=== PATIENT | male | born 1975 | race Caucasian/White ===

== ENCOUNTER 2018-01-09 13:23 | Observation (INO) | payer OTHER ==
--- NOTE | 2018-01-09 14:08 | PDOC ---
History of Present Illness <Marta Garcia - Last Filed: 01/09/18 18:07> - General History Source: Patient Exam Limitations: No Limitations - History of Present Illness Travel History: No Initial Comments: 01/09/18 14:03 42y M hx of chronic pain, htn, s/p gastric bypass, hx of hernia repairs presents with abd pain. Pt states that he has had intermittent abd pain since after he did some lifting at work, then again in the evening when he was bowling. He denies seeing any amsses, n/v, but notes pain mostly in the LLQ , improves when he sits down. normal bms, no f/c, cp, sob, cough, dysuria, diarrhea, melena, bpr. pt also endorses some leg swellnig, but notes he has been on his feet alot. madelyn went to his PMDs office who referred him to the ED for further evlauation. <Yohannes Driscoll - Last Filed: 01/09/18 19:26> - General Chief Complaint: Pain Stated Complaint: ABDOMINAL PAIN Time Seen by Provider: 01/09/18 13:30 Past History <Marta Garcia - Last Filed: 01/09/18 18:07> - Past Medical History Asthma: No HTN: Yes (currently not tx) Liver Disease: No - Surgical History Abdominal Surgery: Yes (HERNIA) Gastric Stapling: Yes - Suicide/Smoking/Psychosocial Hx Smoking History: Current every day smoker Have you smoked in the past 12 months: Yes Number of Cigarettes Smoked Daily: 20 If you are a former smoker, when did you quit?: 06/03 'Breaking Loose' booklet given: 12/19/15 Hx Alcohol Use: No Drug/Substance Use Hx: No Substance Use Type: None Hx Substance Use Treatment: Yes <Yohannes Driscoll - Last Filed: 01/09/18 19:26> - Past Medical History Allergies/Adverse Reactions: Allergies Allergy/AdvReac Type Severity Reaction Status Date / Time No Known Allergies Allergy Verified 01/09/18 13:41 Home Medications: Ambulatory Orders Acetaminophen 650 mg PO Q6H PRN 01/09/18 Esomeprazole Magnesium [Nexium 24Hr] 22.3 mg PO DAILY 01/09/18 Ibuprofen [Motrin -] 600 mg PO TID PRN 01/09/18 Methadone [Dolophine -] 10 mg PO TID 01/09/18 Triamterene/Hydrochlorothiazid [Triamterene-Hctz 37.5-25 mg Cp] 1 each PO DAILY 01/09/18 Valsartan 320 mg PO DAILY 01/09/18 Review of Systems - Review of Systems Able to Perform ROS?: Yes Comments:: 01/09/18 14:05 Constitutional - no reported Fever, Chills, HEENT: no reported vision changes, sore throat Respiratory: no reported cough, sob, hemoptysis Cardiac: no reported chest pain, palpitations, light headedness, leg swelling Abd/GI: +abd pain, no reported nausea, vomiting, blood per rectum, melena, diarrhea : no reported dysuria, frequency, discharge Musculskelatal - no reported back pain, joint swelling skin - no reported bruising, erythema, rash neurological: no reported headache, numbness, focal weakness, tingling, ataxia, hematologic: no reported easy bruising, easy bleeding <Yohannes Driscoll - Last Filed: 01/09/18 19:26> *Physical Exam - Vital Signs Last Vital Signs Temp Pulse Resp BP Pulse Ox 98.1 F 85 16 150/96 99 01/09/18 13:25 01/09/18 13:25 01/09/18 13:25 01/09/18 13:25 01/09/18 13:25 <Marta Garcia - Last Filed: 01/09/18 18:07> - Physical Exam Comments: 01/09/18 14:06 GENERAL: The patient is awake, alert, and fully oriented, Nontoxic - in no acute distress. HEAD: Normocephalic, atraumatic. EYES: extraocular movements intact, sclera anicteric, conjunctiva clear. ENT: Normal voice, Moist mucous membranes. NECK: Normal range of motion, supple LUNGS: Breath sounds equal, clear to auscultation bilaterally. No wheezes, no rhonchi, no rales. HEART: Regular rate and rhythm, normal S1 and S2 without murmur, rub or gallop. ABDOMEN: Soft, mild LLQ tenderness, obese abdomen, no masses. Normoactive bowel sounds. No guarding, no rebound. No CVA tenderness EXTREMITIES: Normal range of motion, trace edema. NEUROLOGICAL: No facial assymetry, Normal speech, moving all 4 extremities spontaneously and symmetrically PSYCH: Normal mood, normal affect. SKIN: Warm, Dry, normal turgor, <YamilaYohannes - Last Filed: 01/09/18 19:26> Moderate Sedation - Procedure Monitoring Vital Signs: Vital Signs Temp Pulse Resp BP Pulse Ox 98.1 F 85 16 150/96 99 01/09/18 13:25 01/09/18 13:25 01/09/18 13:25 01/09/18 13:25 01/09/18 13:25 <Marta Garcia - Last Filed: 01/09/18 18:07> ED Treatment Course - LABORATORY CBC & Chemistry Diagram: 01/09/18 14:30 01/09/18 14:30 - ADDITIONAL ORDERS Additional order review: Laboratory Results 01/09/18 01/09/18 17:55 14:30 Sodium 133 L Potassium 4.0 Chloride 100 Carbon Dioxide 24 Anion Gap 9 BUN 51 H Creatinine 2.2 H Creat Clearance w eGFR 32.99 Random Glucose 99 Calcium 7.8 L Total Bilirubin < 0.5 AST 56 H ALT 44 H Alkaline Phosphatase 76 Total Protein 6.1 L Albumin 2.3 L Urine Color Yellow Urine Appearance Clear Urine pH 6.0 Ur Specific [place] 1.010 Urine Protein Trace Urine Glucose (UA) Negative Urine Ketones Negative Urine Blood Trace-intact H Urine Nitrite Negative Urine Bilirubin Negative Urine Urobilinogen 0.2 Ur Leukocyte Esterase Trace H 01/09/18 14:30 RBC 3.83 L MCV 79.6 L MCHC 34.5 RDW 14.5 MPV 10.3 Neutrophils % No Result Required. Lymphocytes % No Result Required. 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 - Medications Given in the ED: ED Medications Discontinued Medications Generic Name Dose Route Start Last Admin Trade Name Freq PRN Reason Stop Dose Admin Sodium Chloride 1,000 mls @ 1,000 mls/hr 01/09/18 16:26 01/09/18 14:30 Normal Saline - IV 01/09/18 17:25 1,000 mls/hr .Q1H ONE Administration <Marta Garcia - Last Filed: 01/09/18 18:07> - LABORATORY CBC & Chemistry Diagram: 01/09/18 14:30 01/09/18 14:30 - RADIOLOGY Radiology Studies Ordered: Category Date Time Status ABDOMEN & PELVIS CT W/O CONTR [CT] Stat CT Scan 01/09/18 14:02 Ordered <Yohannes Driscoll - Last Filed: 01/09/18 19:26> Medical Decision Making - Medical Decision Making 01/09/18 18:07 Microblog sent to hospitalist. Awaiting call back <Marta Garcia - Last Filed: 01/09/18 18:07> - Medical Decision Making 01/09/18 14:07 will r/o hernia wth CT PO contrast will ck basic labs due to pt complaining of b/l LE edema to r/o metabolic dernagement, renal failure, liver failure 01/09/18 16:27 The patient's blood work was noted to have fewer 51 and creatinine of 2.2, this is new per Dr. jackson and appears to be prerenal azotemia will hydrate the patient. Dr. Foreman feels comfortable following up with the patient has an outpatient in 1-2 days will stop his hypertensive meds 01/09/18 16:[address] noted for L sided hydro - in light of hydro with elevated Cr - will admit for further management will page dr. foreman 01/09/18 18:[address] foreman, will page hospitalist for admission 01/09/18 19:26 case dw ARIADNA Walls agree with obs med surg under service of dr. hancock Case discussed in detail with admitting physician including history, physical exam and ancillary studies. Admitting physician has assumed care for the patient, will follow all pending diagnostics and will complete the evaluation and treatment. <Yohannes Driscoll - Last Filed: 01/09/18 19:26> *DC/Admit/Observation/Transfer - Attestations Scribe Attestion: 01/09/18 18:08 Documentation prepared by Marta Gracia, acting as medical dir for Yohannes Driscoll MD. <Marta Garcia - Last Filed: 01/09/18 18:07> - Discharge Dispostion Decision to Admit order: Yes <Yohannes Driscoll - Last Filed: 01/09/18 19:26> Diagnosis at time of Disposition: Acute kidney failure Qualifiers: Acute renal failure type: unspecified Qualified Code(s): N17.9 - Acute kidney failure, unspecified Hydronephrosis Qualifiers: Hydronephrosis type: unspecified Qualified Code(s): N13.30 - Unspecified hydronephrosis - Discharge Dispostion Condition at time of disposition: Stable - Referrals Referrals: Chuckie Foreman MD [Primary Care Provider] - - Patient Instructions - Post Discharge Activity
[2018-01-09 14:54] LABS: HEMATOCRIT 30.5 % (35.4-49); HEMOGLOBIN 10.5 GM/dl (11.7-16.9); MCH 27.5 pg (25.7-33.7); MCHC 34.5 g/dl (32.0-35.9); MEAN CELL VOLUME 79.6 fl (80-96); MEAN PLT VOLUME 10.3 fl (7.5-11.1); PLATELET COUNT 434 K/MM3 (134-434); RBC 3.83 M/mm3 (4.00-5.60); RDW 14.5 % (11.9-15.9); WHITE BLOOD COUNT 15.7 K/mm3 (4.0-10.8)
[2018-01-09 15:16] LABS: ALBUMIN 2.3 g/dl (3.5-5.0); ALK PHOS 76 U/L (32-92); ANION GAP 9 (8-16); BLOOD UREA NITROGEN 51 mg/dl (7-18); CALCIUM 7.8 mg/dl (8.4-10.2); CHLORIDE 100 mmol/L (98-107); CO2 24 mmol/L (22-28); CREATININE 2.2 mg/dl (0.6-1.3); GLUCOSE,RANDOM 99 mg/dl (74-106); SGOT/AST 56 U/L (10-42); SGPT/ALT 44 U/L (10-40); SODIUM 133 mmol/L (136-145); TOT PROT 6.1 g/dl (6.4-8.3)
[2018-01-09] MEDS ORDERED: SODIUM CHLORIDE 1,000 ML IV ONE (16:26)
[2018-01-09 16:28] LABS: BILIRUBIN,TOTAL < 0.5 mg/dl (0.2-1.0)
[2018-01-09 18:01] LABS: URINE APPEARANCE Clear; URINE BILIRUBIN Negative (NEGATIVE); URINE GLUCOSE (UA) Negative (NEGATIVE); URINE KETONE Negative (NEGATIVE); URINE NITRITE Negative (NEGATIVE); URINE PROTEIN Trace (NEGATIVE); URINE UROBILINOGEN 0.2 (0.2-1.0)
[2018-01-09 18:04] LABS: URINE COLOR YELLOW; URINE LEUK ESTERASE TRACE (NEGATIVE)
[2018-01-09 21:48] LABS: EPI CELLS FEW /HPF; URINE BACTERIA MODERATE /hpf (NEGATIVE)
[2018-01-09 22:02] LABS: PLATELET ESTIMATE SLT INCREASE
[2018-01-09 22:11] VITALS: BMI 41.5
[2018-01-09] MEDS ORDERED: ACETAMINOPHEN 325 MG TABLET (FP) PO PRN (22:14)
[2018-01-09] MEDS ORDERED: SODIUM CHLORIDE 1,000 ML IV SCH (22:15)
--- NOTE | 2018-01-09 22:48 | HP ---
CHIEF COMPLAINT: abdominal pain PCP: Ahsan HISTORY OF PRESENT ILLNESS: This is a 42 year old male with a past medical history significant for HTN, chronic back pain and multiple hernia repairs who presented to the ED with LLQ abdominal pain off and on x 6 days. He states the pain started last week after he lifted something heavy at work and then became worse after he went bowling 2 days later. He also reports B/L LE swelling x 2 days, significantly worse today. ER course was notable for: (1) BUN 51/Cr 2.2 (2) WBC 15.7 Recent Travel: pt denies PAST MEDICAL HISTORY: chronic back pain, HTN, hernia, GERD PAST SURGICAL HISTORY: gastric bypass, hernia repair x 4, adhesion removal, lumbar discectomy Social History: Smoking: pt quit recently, previous on and off 1/2 PPD smoking x 15-20 years total Alcohol: pt denies current use Drugs: pt denies current use Family History: mother age 65, cancer, Breast, mets to bone and lung. also thyroid CA in past father age 73, lung CA 1 brother/1 sister, no medical problems Allergies No Known Allergies Allergy (Verified 01/09/18 13:41) HOME MEDICATIONS: 3 Medication Instructions Recorded Acetaminophen 650 mg PO Q6H PRN 01/09/18 Esomeprazole Magnesium [Nexium 22.3 mg PO DAILY 01/09/18 24Hr] Ibuprofen [Motrin -] 600 mg PO TID PRN 01/09/18 Methadone [Dolophine -] 10 mg PO TID 01/09/18 Triamterene/Hydrochlorothiazid 1 each PO DAILY 01/09/18 [Triamterene-Hctz 37.5-25 mg Cp] Valsartan 320 mg PO DAILY 01/09/18 REVIEW OF SYSTEMS CONSTITUTIONAL: Absent: fever, chills, diaphoresis, generalized weakness, malaise, loss of appetite, weight change HEENT: Absent: rhinorrhea, nasal congestion, throat pain, throat swelling, difficulty swallowing, mouth swelling, ear pain, eye pain, visual changes CARDIOVASCULAR: Present: B/L LE edema Absent: chest pain, syncope, palpitations, irregular heart rate, lightheadedness RESPIRATORY: Absent: cough, shortness of breath, dyspnea with exertion, orthopnea, wheezing, stridor, hemoptysis GASTROINTESTINAL: Present: abdominal pain Absent: abdominal distension, nausea, vomiting, diarrhea, constipation, melena, hematochezia GENITOURINARY: Absent: dysuria, frequency, urgency, hesitancy, hematuria, flank pain, genital pain MUSCULOSKELETAL: Absent: myalgia, arthralgia, joint swelling, back pain, neck pain SKIN: Absent: rash, itching, pallor HEMATOLOGIC/IMMUNOLOGIC: Absent: easy bleeding, easy bruising, lymphadenopathy, frequent infections ENDOCRINE: Absent: unexplained weight gain, unexplained weight loss, heat intolerance, cold intolerance NEUROLOGIC: Absent: headache, focal weakness or paresthesias, dizziness, unsteady gait, seizure, mental status changes, bladder or bowel incontinence PSYCHIATRIC: Absent: anxiety, depression, suicidal or homicidal ideation, hallucinations. PHYSICAL EXAMINATION Vital Signs - 24 hr 3 01/09/18 01/09/18 01/09/18 13:25 21:00 22:00 Temperature 98.1 F 99.4 F Pulse Rate 85 86 Respiratory 16 18 18 Rate Blood Pressure 150/96 116/55 O2 Sat by Pulse 99 96 Oximetry (%) GENERAL: Awake, alert, and fully oriented, in no acute distress. HEAD: Normal with no signs of trauma. EYES: Pupils equal, round and reactive to light, extraocular movements intact, sclera anicteric, conjunctiva clear. No lid lag. EARS, NOSE, THROAT: Ears normal, nares patent, oropharynx clear without exudates. Moist mucous membranes. NECK: Normal range of motion, supple without lymphadenopathy, JVD, or masses. LUNGS: Breath sounds equal, clear to auscultation bilaterally. No wheezes, and no crackles. No accessory muscle use. HEART: Regular rate and rhythm, normal S1 and S2 without murmur, rub or gallop. ABDOMEN: Soft, tender RUQ, no tenderness elicited LLQ, not distended, normoactive bowel sounds, no guarding, no rebound, no palpable masses. No hepatomegaly or splenomegaly. MUSCULOSKELETAL: Normal range of motion at all joints. No bony deformities or tenderness. No CVA tenderness. UPPER EXTREMITIES: 2+ pulses, warm, well-perfused. No cyanosis. No clubbing. No peripheral edema. LOWER EXTREMITIES: 2+ pulses, warm, well-perfused. No calf tenderness. 1+ peripheral edema B/L. NEUROLOGICAL: Cranial nerves II-XII intact. Normal speech. Normal gait. PSYCHIATRIC: Cooperative. Good eye contact. Appropriate mood and affect. SKIN: Warm, dry, normal turgor, no rashes or lesions noted, normal capillary refill. Laboratory Results - last 24 hr 3 01/09/18 01/09/18 01/09/18 14:30 14:30 17:55 WBC 15.7 H RBC 3.83 L Hgb 10.5 L Hct 30.5 L MCV 79.6 L MCH 27.5 MCHC 34.5 RDW 14.5 Plt Count 434 MPV 10.3 Neutrophils % No Result Required. Neutrophils % (Manual) 87.0 H Band Neutrophils % 6.0 Lymphocytes % No Result Required. Lymphocytes % (Manual) 4.0 L Monocytes % (Manual) 3 L Basophils % Home Office Representative Platelet Estimate Slt increase Sodium 133 L Potassium 4.0 Chloride 100 Carbon Dioxide 24 Anion Gap 9 BUN 51 H Creatinine 2.2 H Creat Clearance w eGFR 32.99 Random Glucose 99 Calcium 7.8 L Total Bilirubin < 0.5 AST 56 H ALT 44 H Alkaline Phosphatase 76 Total Protein 6.1 L Albumin 2.3 L Urine Color Yellow Urine Appearance Clear Urine pH 6.0 Ur Specific [place] 1.010 Urine Protein Trace Urine Glucose (UA) Negative Urine Ketones Negative Urine Blood Trace-intact H Urine Nitrite Negative Urine Bilirubin Negative Urine Urobilinogen 0.2 Ur Leukocyte Esterase Trace H Urine RBC 2-5 Urine WBC 5-10 Ur Epithelial Cells Few Urine Bacteria Moderate Radiology Results CT abd/pelvis w/o contrast IMPRESSION: Mild left hydronephrosis is noted - ? mild ureteropelvic junction obstruction. Urology consultation is suggested, nonemergent unless otherwise clinically indicated. Additional evaluation utilizing nonemergent CT urography may be considered. No evidence of urolithiasis. Left inguinal hernia containing fat only. Probable diffuse hepatic steatosis. Splenomegaly (16.4 cm length). Cholelithiasis. Marked L3-L4 central canal stenosis. L5-S1 grade 1 spondylolytic spondylolisthesis. Reported By: Thompson Graham MD 01/09/18 [id number] ASSESSMENT/PLAN: 42yM with PMH chronic back pain, HTN, GERD, multiple hernia repairs presented with LLQ pain. LLQ pain - no clear etiology of pain defined, ? due to hernia - consider surgical consult RUQ pain - US Abd, pt reports GB issues since childhood AGATHA - Cr 2.2, as per Dr. Driscoll who d/w Ahsan, pt has no h/o elevated Cr - possible L UPJ obstruction on CT, urology consult ordered - renal consult ordered - hold valsartan and dyazide. If BP elevated would start lopressor. leukocytosis - afebrile will observe off antibiotics for now. HTN - BP meds held due to AGATHA - monitor BP, start lopressor if elevated GERD - home nexium changed to protonix DVT PPX - heparin deferred as expected LOS <48h FEN - NS @ 75cc/hr - BMP - low sodium diet Dispo: Pt currently requires further observation for management of his emergent condition. Visit type - Emergency Visit Emergency Visit: Yes ED Registration Date: 01/09/18 Care time: The patient presented to the Emergency Department on the above date and was hospitalized for further evaluation of their emergent condition. - New Patient This patient is new to me today: Yes Date on this admission: 01/09/18 - Critical Care Critical Care patient: No Hospitalist Screening - Colonoscopy Questionnaire Colonoscopy Questionnaire: Colonoscopy Questionnaire - Patient: 50 - 75 years old and never had a screening colonoscopy: No History of colon or rectal polyps, or CA: No History of IBD, Crohn's disease or UC: No History of abdominal radiation therapy as a child: No - Relative: 1 with colon or rectal CA, or polyps at age 60 or younger: No Colon or rectal CA diagnosed at age 45 or younger: No Multiple relatives with colon or rectal CA: No - Outcome: Screening Result: Negative Screen
[2018-01-09] MEDS: METHADONE HCL 10 MG TABLET PO SCH (22:53)
[2018-01-10] MEDS: METHADONE HCL 10 MG TABLET PO SCH ×3 (06:34→21:33)
--- NOTE | 2018-01-10 08:35 | PN ---
Physical Exam: SUBJECTIVE: Patient seen and examined, patient reports improvement of abdominal pain reports feeling hungry denies any tactile fever. OBJECTIVE: patient is an obese, 42-year-old male with a past medical history of hypertension, chronic back pain ( methadone), GERD, multiple hernia repairs. Patient was admitted from the emergency department to observation for hydronephrosis and AGATHA Vital Signs Period Temp Pulse Resp BP Sys/Hubbard Pulse Ox Last 24 Hr 98.1 F-99.7 F 81-86 16-19 116-150/55-96 96-100 GENERAL: The patient is awake, alert, and fully oriented, in no acute distress. HEAD: Normal with no signs of trauma. EYES: PERRL, extraocular movements intact, sclera anicteric, conjunctiva clear. No ptosis. ENT: Ears normal, nares patent, oropharynx clear without exudates, moist mucous membranes. NECK: Trachea midline, full range of motion, supple. LUNGS: Breath sounds equal, clear to auscultation bilaterally, no wheezes, no crackles, no accessory muscle use. HEART: Regular rate and rhythm, S1, S2 without murmur, rub or gallop. ABDOMEN: Soft, obese, nondistended, normoactive bowel sounds, no guarding, no rebound, no hepatosplenomegaly, no masses. EXTREMITIES: 2+ pulses, warm, well-perfused, no edema. NEUROLOGICAL: Cranial nerves II through XII grossly intact. Normal speech, gait not observed. PSYCH: Normal mood, normal affect. SKIN: Warm, dry, normal turgor, no rashes or lesions noted Laboratory Results - last 24 hr CBC WBC 11.0 K/mm3 (4.0-10.8) H 01/10/18 07:30 RBC 3.58 M/mm3 (4.00-5.60) L 01/10/18 07:30 Hgb 9.7 GM/dl (11.7-16.9) L 01/10/18 07:30 Hct 28.8 % (35.4-49) L 01/10/18 07:30 MCV 80.4 fl (80-96) 01/10/18 07:30 MCH 27.0 pg (25.7-33.7) 01/10/18 07:30 MCHC 33.6 g/dl (32.0-35.9) 01/10/18 07:30 RDW 14.9 % (11.9-15.9) 01/10/18 07:30 Plt Count 361 K/MM3 (134-434) 01/10/18 07:30 MPV 10.2 fl (7.5-11.1) 01/10/18 07:30 Neutrophils % No Result Required. 01/10/18 07:30 Neutrophils % (Manual) 82.0 % (42.8-82.8) 01/10/18 07:30 Band Neutrophils % 6.0 % (0-10) 01/09/18 14:30 Lymphocytes % No Result Required. 01/10/18 07:30 Lymphocytes % (Manual) 11.0 % (8-40) D 01/10/18 07:30 Monocytes % (Manual) 7 % (3.8-10.2) D 01/10/18 07:30 Basophils % Heating Element Winder 01/09/18 14:30 Platelet Estimate Adequate 01/10/18 07:30 CMP Sodium 136 mmol/L (136-145) 01/10/18 07:30 Potassium 3.0 mmol/L (3.5-5.1) L 01/10/18 07:30 Chloride 101 mmol/L (98-107) 01/10/18 07:30 Carbon Dioxide 24 mmol/L (22-28) 01/10/18 07:30 Anion Gap 11 (8-16) 01/10/18 07:30 BUN 37 mg/dl (7-18) H 01/10/18 07:30 Creatinine 1.4 mg/dl (0.6-1.3) H 01/10/18 07:30 Creat Clearance w eGFR 55.58 (>60) 01/10/18 07:30 Random Glucose 89 mg/dl (74-106) 01/10/18 07:30 Calcium 7.2 mg/dl (8.4-10.2) L 01/10/18 07:30 Phosphorus 3.8 mg/dl (2.5-4.6) 01/10/18 07:30 Magnesium 2.0 mg/dL (1.8-2.4) 01/10/18 07:30 Total Bilirubin < 0.5 mg/dl (0.2-1.0) 01/10/18 07:30 AST 24 U/L (10-42) D 01/10/18 07:30 ALT 35 U/L (10-40) D 01/10/18 07:30 Alkaline Phosphatase 65 U/L (32-92) 01/10/18 07:30 Total Protein 5.3 g/dl (6.4-8.3) L 01/10/18 07:30 Albumin 1.9 g/dl (3.5-5.0) L 01/10/18 07:30 Active Medications Generic Name Dose Route Start Last Admin Trade Name [place] PRN Reason Stop Dose Admin Acetaminophen 650 mg 01/09/18 22:14 01/09/18 22:53 Tylenol - PO 650 mg Q6H PRN Administration PAIN LEVEL 1-5 Sodium Chloride 1,000 mls @ 75 mls/hr 01/09/18 22:15 01/09/18 22:54 Normal Saline - IV 75 mls/hr ASDIR QI Administration Methadone HCl 10 mg 01/09/18 22:45 01/10/18 06:34 Dolophine - PO 10 mg TID QI Administration Pantoprazole Sodium 20 mg 01/10/18 10:00 Protonix - PO DAILY QI IMAGING CT of abdomen and pelvis without contrast, mild left hydronephrosis questionable mild ureteropelvic junction obstruction, no urolithiasis, left inguinal hernia containing fat, splenomegaly, cholelithiasis, L3-L4 central canal stenosis, L5-S1 grade 1 spondylolisthesis ASSESSMENT/PLAN: 1) GI abdominal pain - resolved cholelithiasis Transaminitis resolved, T bili WNL. he reports a history of gallstones and a past, pending ultrasound of abdomen. GERD - continue protonix 2) nephrology AK I - Repeat creatinine 1.4 after gentle hydration. - CT scan of abdomen reviewed, questionable mild UVJ obstruction, no nephrolithiasis noted. Appreciate input of urology. - Pending urine culture 3) cardiovascular hypertension - continue to hold valsartan and dyazide - b/p remains at goal 4) heme/onc leukocytosis - pending urine cultue patient is afebrile we will continue to hold off antibiotics - afebrile will observe off antibiotics for now. DVT PPX - heparin deferred as expected LOS <48h FEN hypokalemia - Potassium 40 mEq by mouth 1 and 10 mEq IV 2, repeat potassium at 6 PM npo for abdominal ultraosound Dispo: Pt currently requires further observation for management of his emergent condition. Visit type - Emergency Visit Emergency Visit: Yes ED Registration Date: 01/09/18 Care time: The patient presented to the Emergency Department on the above date and was hospitalized for further evaluation of their emergent condition. - New Patient This patient is new to me today: Yes Date on this admission: 01/10/18 - Critical Care Critical Care patient: No - Discharge Referral Referred to [facility] Med [facility] No
[2018-01-10 08:36] LABS: HEMATOCRIT 28.8 % (35.4-49); HEMOGLOBIN 9.7 GM/dl (11.7-16.9); MCHC 33.6 g/dl (32.0-35.9); MEAN CELL VOLUME 80.4 fl (80-96); MEAN PLT VOLUME 10.2 fl (7.5-11.1); PLATELET COUNT 361 K/MM3 (134-434); RBC 3.58 M/mm3 (4.00-5.60); RDW 14.9 % (11.9-15.9)
[2018-01-10 08:50] LABS: ADD RBC MORPHOLOGY YES
[2018-01-10 08:57] LABS: ANION GAP 11 (8-16); BLOOD UREA NITROGEN 37 mg/dl (7-18); CALCIUM 7.3 mg/dl (8.4-10.2); CHLORIDE 101 mmol/L (98-107); CO2 25 mmol/L (22-28); CREATININE 1.4 mg/dl (0.6-1.3); GLUCOSE,RANDOM 92 mg/dl (74-106); PHOSPHOROUS 3.8 mg/dl (2.5-4.6); SODIUM 137 mmol/L (136-145)
[2018-01-10] MEDS ORDERED: POTASSIUM CHLORIDE TABS 20 MEQ TABLET.ER (FP) PO ONE ×3 (09:45→19:30)
[2018-01-10] MEDS: PANTOPRAZOLE 20 MG TABLET (FP) PO SCH (09:49)
[2018-01-10 10:27] LABS: ALBUMIN 1.9 g/dl (3.5-5.0); ALK PHOS 65 U/L (32-92); ANION GAP 11 (8-16); BLOOD UREA NITROGEN 37 mg/dl (7-18); CALCIUM 7.2 mg/dl (8.4-10.2); CHLORIDE 101 mmol/L (98-107); CO2 24 mmol/L (22-28); CREATININE 1.4 mg/dl (0.6-1.3); GLUCOSE,RANDOM 89 mg/dl (74-106); SGOT/AST 24 U/L (10-42); SGPT/ALT 35 U/L (10-40); SODIUM 136 mmol/L (136-145); TOT PROT 5.3 g/dl (6.4-8.3)
[2018-01-10 10:32] LABS: BILIRUBIN,TOTAL < 0.5 mg/dl (0.2-1.0)
[2018-01-10 11:27] LABS: PLATELET ESTIMATE ADEQUATE
[2018-01-10] MEDS ORDERED: SODIUM CHLORIDE 0.9%/KCL 20 MEQ/1,000 ML INFUS.BAG IV SCH (11:45)
[2018-01-10] MEDS: KCL 10 MEQ IVPB 10 MEQ/100 ML INFUS.BAG IVPB SCH ×4 (12:00→21:33)
--- NOTE | 2018-01-10 17:11 | CONSULT ---
Consult Consult Specialty:: Nephrology Reason for Consultation:: AGATHA - History of Present Illness Chief Complaint: andominal pain History of Present Illness: Pt is a 42 year old male with pmhx of HTN, chronic back pain and gastric bypass who presents with abdominal pain. He has had the pain for a few days. He was found to have elevated creatinine. He was on trimaterine and an arb for HTN. He denies shortness of breath. He denies fevers or chills. He does get lower ext edema at times. He is on methadone for back back. He does take motrin for pain. - History Source History Provided By: Patient - Past Medical History Cardio/Vascular: Yes: HTN - Past Surgical History Additional Surgical History: gastric bypass - Alcohol/Substance Use Hx Alcohol Use: No - Smoking History Smoking history: Current every day smoker Have you smoked in the past 12 months: Yes Aproximately how many cigarettes per day: 20 If you are a former smoker, when did you quit?: 06/03 Home Medications - Allergies Allergies/Adverse Reactions: Allergies Allergy/AdvReac Type Severity Reaction Status Date / Time No Known Allergies Allergy Verified 01/09/18 13:41 - Home Medications Home Medications: Ambulatory Orders Acetaminophen 650 mg PO Q6H PRN 01/09/18 Esomeprazole Magnesium [Nexium 24Hr] 22.3 mg PO DAILY 01/09/18 Ibuprofen [Motrin -] 600 mg PO TID PRN 01/09/18 Methadone [Dolophine -] 10 mg PO TID 01/09/18 Triamterene/Hydrochlorothiazid [Triamterene-Hctz 37.5-25 mg Cp] 1 each PO DAILY 01/09/18 Valsartan 320 mg PO DAILY 01/09/18 Family Disease History - Family Disease History Family History: Denies Review of Systems - Review of Systems Constitutional: reports: No Symptoms Eyes: reports: No Symptoms HENT: reports: No Symptoms Neck: reports: No Symptoms Cardiovascular: reports: No Symptoms Respiratory: reports: No Symptoms Gastrointestinal: reports: Abdominal Pain Genitourinary: reports: No Symptoms Musculoskeletal: reports: No Symptoms Integumentary: reports: No Symptoms Neurological: reports: No Symptoms Endocrine: reports: No Symptoms Hematology/Lymphatic: reports: No Symptoms Psychiatric: reports: No Symptoms Physical Exam Vital Signs: Vital Signs Temperature 98.9 F 01/10/18 14:15 Pulse Rate 77 05/22/18 14:15 Respiratory Rate 19 01/10/18 14:15 Blood Pressure 123/57 01/10/18 14:15 O2 Sat by Pulse Oximetry (%) 97 01/10/18 14:15 Constitutional: Yes: Calm Eyes: Yes: Conjunctiva Clear HENT: Yes: Atraumatic Neck: Yes: Supple Cardiovascular: Yes: S1, S2 Respiratory: Yes: CTA Bilaterally Gastrointestinal: Yes: Normal Bowel Sounds, Soft Renal/: Yes: WNL. No: CVA Tenderness - Left, CVA Tenderness - Right Musculoskeletal: Yes: WNL Extremities: Yes: WNL Edema: No Integumentary: Yes: Tattoos Neurological: Yes: Oriented Psychiatric: Yes: Oriented Labs: CBC, BMP 01/10/18 07:30 01/10/18 07:30 Laboratory Tests 01/09/18 01/10/18 01/10/18 14:30 07:30 07:30 WBC 11.0 H RBC 3.58 L Hgb 9.7 L Plt Count 361 Creatinine 2.2 H 1.4 H D 01/10/18 07:30 WBC RBC Hgb Plt Count Creatinine 1.4 H Imaging - Results Cat Scan: Report Reviewed Ultrasound: Report Reviewed Problem List - Problems (1) Acute kidney failure Code(s): N17.9 - ACUTE KIDNEY FAILURE, UNSPECIFIED Qualifiers: Acute renal failure type: unspecified Qualified Code(s): N17.9 - Acute kidney failure, unspecified (2) Hydronephrosis Code(s): N13.30 - UNSPECIFIED HYDRONEPHROSIS Qualifiers: Hydronephrosis type: unspecified Qualified Code(s): N13.30 - Unspecified hydronephrosis Assessment/Plan Current Medications Generic Name Dose Route Start Last Admin Trade Name Freq PRN Reason Stop Dose Admin Acetaminophen 650 mg 01/09/18 22:14 01/09/18 22:53 Tylenol - PO 650 mg Q6H PRN Administration PAIN LEVEL 1-5 Potassium Chloride/Sodium Chloride 20 meq in 1,000 mls @ 100 mls/hr 01/10/18 11:45 01/10/18 12:00 Ns+20 Meq Kcl - IV 100 mls/hr ASDIR QI Administration Methadone HCl 10 mg 01/09/18 22:45 05/22/18 14:08 Dolophine - PO 10 mg TID QI Administration Pantoprazole Sodium 20 mg 01/10/18 10:00 01/10/18 09:49 Protonix - PO 20 mg DAILY QI Administration Selected Entries 01/10/18 01/10/18 10:00 14:15 Blood Pressure 120/58 123/57 Impression 1. AGATHA 2. HTN 3. abd pain 4. hydronephrosis 5. chronic back pain Plan - renal function is improving - hold arb and diuretic - replace potassium - check mag - cont fluids - urology eval - bp is normal off of meds and on saline - repeat ua - will need outpt follow up and workup - d/c motrin and avoid nsaids
--- NOTE | 2018-01-10 18:29 | CON.GU ---
Consult Consult Specialty:: Referred by:: Medicine Reason for Consultation:: left hydronephrosis - History of Present Illness Chief Complaint: left hydronephrosis History of Present Illness: 42 year old male admitted with AGATHA and BLE swelling has incidentally found left sided hydronephrosis suggestive or congenital UPJO. He denies prior history. He has no related pain. No family history of prostate cancer. No LUTS or hematuria. Creatinine on admission was 2.2, is down to 1.4 - History Source History Provided By: Patient, Medical Record Limitations to Obtaining History: No Limitations - Past Medical History Cardio/Vascular: Yes: HTN Renal/: No: Renal Failure, Renal Inusuff, BPH, Cancer, Hematuria, Hemodialysis , Neurogenic Bladder, Renal Calculi, UTI, Other - Past Surgical History Additional Surgical History: gastric bypass - Alcohol/Substance Use Hx Alcohol Use: No - Smoking History Smoking history: Current every day smoker Have you smoked in the past 12 months: Yes Aproximately how many cigarettes per day: 20 If you are a former smoker, when did you quit?: 06/03 Home Medications - Allergies Allergies/Adverse Reactions: Allergies Allergy/AdvReac Type Severity Reaction Status Date / Time No Known Allergies Allergy Verified 01/09/18 13:41 - Home Medications Home Medications: Ambulatory Orders Acetaminophen 650 mg PO Q6H PRN 01/09/18 Esomeprazole Magnesium [Nexium 24Hr] 22.3 mg PO DAILY 01/09/18 Ibuprofen [Motrin -] 600 mg PO TID PRN 01/09/18 Methadone [Dolophine -] 10 mg PO TID 01/09/18 Triamterene/Hydrochlorothiazid [Triamterene-Hctz 37.5-25 mg Cp] 1 each PO DAILY 01/09/18 Valsartan 320 mg PO DAILY 01/09/18 Review of Systems - Review of Systems Genitourinary: reports: Menses, Vaginal Bleeding. denies: No Symptoms, Burning , Discharge, Dysuria, Flank Pain, Frequency, Hematuria, Incontinence, Lesions, Pain, Testicular Mass, Testicular Pain, Testicular Swelling, Urgency, Other Physical Exam- Vital Signs: Vital Signs Temperature 98.9 F 01/10/18 14:15 Pulse Rate 77 01/10/18 14:15 Respiratory Rate 19 01/10/18 14:15 Blood Pressure 123/57 01/10/18 14:15 O2 Sat by Pulse Oximetry (%) 97 01/10/18 14:15 Constitutional: Yes: Well Nourished, Anxious, Obese Eyes: Yes: WNL HENT: Yes: WNL Cardiovascular: Yes: WNL Respiratory: Yes: WNL Renal/: No: Bladder Distention, CVA Tenderness - Left, CVA Tenderness - Right , [place] Present, Hematuria Labs: CBC, BMP 01/10/18 07:30 Imaging - Results Cat Scan: Report Reviewed, Image Reviewed Problem List - Problems (1) Acute kidney failure Assessment/Plan: is improved with hydration. continue to watch creatinine Code(s): N17.9 - ACUTE KIDNEY FAILURE, UNSPECIFIED Qualifiers: Acute renal failure type: unspecified Qualified Code(s): N17.9 - Acute kidney failure, unspecified (2) Hydronephrosis Assessment/Plan: appears to be UPJO. will order renal scan Code(s): N13.30 - UNSPECIFIED HYDRONEPHROSIS Qualifiers: Hydronephrosis type: unspecified Qualified Code(s): N13.30 - Unspecified hydronephrosis
[2018-01-10 18:50] LABS: ANION GAP 9 (8-16); BLOOD UREA NITROGEN 28 mg/dl (7-18); CALCIUM 7.1 mg/dl (8.4-10.2); CHLORIDE 104 mmol/L (98-107); CO2 24 mmol/L (22-28); CREATININE 1.3 mg/dl (0.6-1.3); GLUCOSE,RANDOM 160 mg/dl (74-106); SODIUM 137 mmol/L (136-145)
[2018-01-10 18:58] LABS: POTASSIUM 2.8 mmol/L (3.5-5.1)
[2018-01-10 20:16] LABS: URINE APPEARANCE Clear; URINE BILIRUBIN Negative (NEGATIVE); URINE GLUCOSE (UA) Negative (NEGATIVE); URINE KETONE Negative (NEGATIVE); URINE NITRITE Positive (NEGATIVE); URINE PROTEIN Trace (NEGATIVE)
[2018-01-10 20:32] LABS: URINE COLOR YELLOW; URINE LEUK ESTERASE TRACE (NEGATIVE)
[2018-01-10 21:22] LABS: EPI CELLS 3+ /HPF; URINE BACTERIA 3+ /hpf (NEGATIVE); URINE RBC 0-3 /hpf (0-3)
[2018-01-11] MEDS: KCL 10 MEQ IVPB 10 MEQ/100 ML INFUS.BAG IVPB SCH (00:48)
[2018-01-11] MEDS: METHADONE HCL 10 MG TABLET PO SCH ×3 (06:40→21:44)
[2018-01-11] MEDS ORDERED: ACETAMINOPHEN/CAFFEINE/BUTALBITAL 1 TAB PO PRN (07:46)
[2018-01-11 09:47] LABS: ANION GAP 7 (8-16); BLOOD UREA NITROGEN 19 mg/dl (7-18); CALCIUM 7.6 mg/dl (8.4-10.2); CHLORIDE 104 mmol/L (98-107); CO2 24 mmol/L (22-28); GLUCOSE,RANDOM 99 mg/dl (74-106); POTASSIUM 3.6 mmol/L (3.5-5.1); SODIUM 135 mmol/L (136-145)
[2018-01-11 10:12] LABS: MAGNESIUM 1.7 mg/dL (1.8-2.4)
[2018-01-11] MEDS ORDERED: MAGNESIUM SULFATE IN WATER 2 GM/50 ML IVPB IVPB ONE (11:00)
[2018-01-11] MEDS ORDERED: POTASSIUM CHLORIDE TABS 20 MEQ TABLET.ER (FP) PO ONE (11:00)
[2018-01-11] MEDS: PANTOPRAZOLE 20 MG TABLET (FP) PO SCH (11:12)
--- NOTE | 2018-01-11 12:05 | PN ---
Physical Exam: SUBJECTIVE: Patient seen and examined, patient sitting at bedside, patient denies any abdominal pain tolerating diet OBJECTIVE: patient is an obese, 42-year-old male with a past medical history of hypertension, chronic back pain ( methadone), GERD, multiple hernia repairs. Patient was admitted from the emergency department to observation for hydronephrosis and AGATHA Vital Signs Period Temp Pulse Resp BP Sys/Hubbard Pulse Ox Last 24 Hr 98.3 F-98.9 F 74-89 16-20 110-127/48-68 95-97 GENERAL: The patient is awake, alert, and fully oriented, in no acute distress. HEAD: Normal with no signs of trauma. EYES: PERRL, extraocular movements intact, sclera anicteric, conjunctiva clear. No ptosis. ENT: Ears normal, nares patent, oropharynx clear without exudates, moist mucous membranes. NECK: Trachea midline, full range of motion, supple. LUNGS: Breath sounds equal, clear to auscultation bilaterally, no wheezes, no crackles, no accessory muscle use. HEART: Regular rate and rhythm, S1, S2 without murmur, rub or gallop. ABDOMEN: Soft, obese,nontender, nondistended, normoactive bowel sounds, no guarding, no rebound, no hepatosplenomegaly, no masses. EXTREMITIES: 2+ pulses, warm, well-perfused, no edema. NEUROLOGICAL: Cranial nerves II through XII grossly intact. Normal speech, gait not observed. PSYCH: Normal mood, normal affect. SKIN: Warm, dry, normal turgor, no rashes or lesions noted Laboratory Results - last 24 hr 01/10/18 01/10/18 01/10/18 07:40 07:40 18:12 Retic Count 0.80 Sodium 137 Potassium 2.8 L* Chloride 104 Carbon Dioxide 24 Anion Gap 9 BUN 28 H D Creatinine 1.3 Random Glucose 160 H D Calcium 7.1 L Magnesium Ferritin 806.953 H Urine Color Urine Appearance Urine pH Ur Specific [place] Urine Protein Urine Glucose (UA) Urine Ketones Urine Blood Urine Nitrite Urine Bilirubin Urine Urobilinogen Ur Leukocyte Esterase Urine RBC Urine WBC Ur Epithelial Cells Urine Bacteria 01/10/18 01/11/18 18:45 08:00 Retic Count Sodium 135 L Potassium 3.6 D Chloride 104 Carbon Dioxide 24 Anion Gap 7 L BUN 19 H D Creatinine 1.0 D Random Glucose 99 D Calcium 7.6 L Magnesium 1.7 L Ferritin Urine Color Yellow Urine Appearance Clear Urine pH 6.0 Ur Specific [place] 1.015 Urine Protein Trace Urine Glucose (UA) Negative Urine Ketones Negative Urine Blood Trace H Urine Nitrite Positive Urine Bilirubin Negative Urine Urobilinogen 1.0 Ur Leukocyte Esterase Trace H Urine RBC 0-3 Urine WBC 10-20 Ur Epithelial Cells 3+ Urine Bacteria 3+ Active Medications Generic Name Dose Route Start Last Admin Trade Name [place] PRN Reason Stop Dose Admin Acetaminophen 650 mg 01/09/18 22:14 01/09/18 22:53 Tylenol - PO 650 mg Q6H PRN Administration PAIN LEVEL 1-5 Acetaminophen/Butalbital/Caffeine 1 tablet 01/11/18 07:46 Fioricet - PO Q6H PRN HEADACHE Potassium Chloride/Sodium Chloride 20 meq in 1,000 mls @ 100 mls/hr 01/10/18 11:45 01/10/18 12:00 Ns+20 Meq Kcl - IV 100 mls/hr ASDIR QI Administration Ceftriaxone Sodium 2 gm in 50 mls @ 100 mls/hr 01/11/18 11:29 Ceftriaxone 2 Gm-D5w Bag IVPB 01/11/18 11:58 ONCE ONE Protocol Methadone HCl 10 mg 01/09/18 22:45 01/11/18 06:40 Dolophine - PO 10 mg TID QI Administration Pantoprazole Sodium 20 mg 01/10/18 10:00 01/11/18 11:12 Protonix - PO 20 mg DAILY QI Administration Microbiology 01/10/18 13:00 Urine - Urine Clean Catch Urine Culture - Preliminary Lactose Fermenting Neg Bacilli IMAGING CT of abdomen and pelvis without contrast, mild left hydronephrosis questionable mild ureteropelvic junction obstruction, no urolithiasis, left inguinal hernia containing fat, splenomegaly, cholelithiasis, L3-L4 central canal stenosis, L5-S1 grade 1 spondylolisthesis ultrasound of abdomen: gallbladder sludge, hepatosplenomegaly, no cholelithiasis Ultrasound of bladder: small post void residual, mild left hydronephrosis or obvious obstruction ASSESSMENT/PLAN: 1) GI abdominal pain - resolved Transaminitis resolved, T bili WNL. ultrasound of abdomen reviewed GERD - continue protonix 2) nephrology AK I - Repeat creatinine 1.0 after IV hydration, creatinine is now at baseline. - pending renal scan today 3) Urinary tract infection -Preliminary culture positive for lactose fermenting criteria will start Rocephin - Patient reports he is sexually active with female partner several months ago, will send gonorrhea and chlamydia culture 3) cardiovascular hypertension - continue to hold valsartan and dyazide - b/p remains at goal 4) heme/onc leukocytosis - pending urine cultue patient is afebrile we will continue to hold off antibiotics - afebrile will observe off antibiotics for now. DVT PPX - heparin deferred as expected LOS <48h FEN hypokalemia - resolved - regular diet Dispo: Pt currently requires further observation for management of his emergent condition. Visit type - Emergency Visit Emergency Visit: Yes ED Registration Date: 01/09/18 Care time: The patient presented to the Emergency Department on the above date and was hospitalized for further evaluation of their emergent condition. - New Patient This patient is new to me today: No - Critical Care Critical Care patient: No - Discharge Referral Referred to [facility] No
[2018-01-11] MEDS ORDERED: CEFTRIAXONE 2 GM/100 ML BAG IVPB ONE (12:45)
--- NOTE | 2018-01-11 12:49 | PN ---
Progress Note, Physician History of Present Illness: Pt seen and examined at bedside. He is now at [facility] about to go for a renal scan. He denies shortness of breath. - Current Medication List Current Medications: Active Medications Acetaminophen (Tylenol -) 650 mg PO Q6H PRN PRN Reason: PAIN LEVEL 1-5 Last Admin: 01/09/18 22:53 Dose: 650 mg Acetaminophen/Butalbital/Caffeine (Fioricet -) 1 tablet PO Q6H PRN PRN Reason: HEADACHE Ceftriaxone Sodium (Rocephin 2gm Ivpb (Pre-Docked)) 2 gm in 100 mls @ 100 mls/ hr IVPB ONCE ONE; Protocol Stop: 01/11/18 13:44 Methadone HCl (Dolophine -) 10 mg PO TID [facility] Last Admin: 01/11/18 06:40 Dose: 10 mg Pantoprazole Sodium (Protonix -) 20 mg PO DAILY [facility] Last Admin: 01/11/18 11:12 Dose: 20 mg - Objective Vital Signs: Vital Signs Temperature 98.9 F 01/11/18 06:00 Pulse Rate 89 01/11/18 06:00 Respiratory Rate 20 01/11/18 06:00 Blood Pressure 127/59 01/11/18 06:00 O2 Sat by Pulse Oximetry (%) 95 01/11/18 06:00 Constitutional: Yes: Calm Eyes: Yes: Conjunctiva Clear HENT: Yes: Atraumatic Neck: Yes: Supple Cardiovascular: Yes: S1, S2 Respiratory: Yes: CTA Bilaterally Gastrointestinal: Yes: Soft, Abdomen, Obese Genitourinary: Yes: WNL Musculoskeletal: Yes: WNL Edema: No Integumentary: Yes: Tattoos Neurological: Yes: Oriented Psychiatric: Yes: Oriented Labs: CBC, BMP 01/10/18 07:30 01/11/18 08:00 Problem List - Problems (1) Acute kidney failure Code(s): N17.9 - ACUTE KIDNEY FAILURE, UNSPECIFIED Qualifiers: Acute renal failure type: unspecified Qualified Code(s): N17.9 - Acute kidney failure, unspecified (2) Hydronephrosis Code(s): N13.30 - UNSPECIFIED HYDRONEPHROSIS Qualifiers: Hydronephrosis type: unspecified Qualified Code(s): N13.30 - Unspecified hydronephrosis Assessment/Plan Current Medications Generic Name Dose Route Start Last Admin Trade Name Casper PRN Reason Stop Dose Admin Acetaminophen 650 mg 01/09/18 22:14 01/09/18 22:53 Tylenol - PO 650 mg Q6H PRN Administration PAIN LEVEL 1-5 Acetaminophen/Butalbital/Caffeine 1 tablet 01/11/18 07:46 Fioricet - PO Q6H PRN HEADACHE Ceftriaxone Sodium 2 gm in 100 mls @ 100 mls/hr 01/11/18 12:45 Rocephin 2gm Ivpb (Pre-Docked) IVPB 01/11/18 13:44 ONCE ONE Protocol Methadone HCl 10 mg 01/09/18 22:45 01/11/18 06:40 Dolophine - PO 10 mg TID QI Administration Pantoprazole Sodium 20 mg 01/10/18 10:00 01/11/18 11:12 Protonix - PO 20 mg DAILY QI Administration Impression 1. AGATHA 2. HTN 3. abd pain 4. hydronephrosis 5. chronic back pain Plan - renal function continues to improve - pt getting renal scan today, urology follow up for plan - con fluids, can decrease rate - bp remains stable despite being off meds, may not need to restart bp meds - will need outpt renal follow up - will need to repeat ua once urology issues are resolved - d/c motrin and avoid nsaids
[2018-01-11 16:30] LABS: SERUM IRON SATURATION 12 % (15-55); TOTAL IRON BINDING CAPACITY 169 ug/dL (250-450); UIBC 149 ug/dL (111-343)
[2018-01-12 05:36] VITALS: PULSE 80
[2018-01-12] MEDS: METHADONE HCL 10 MG TABLET PO SCH ×2 (06:10→15:11)
[2018-01-12] MEDS: PANTOPRAZOLE 20 MG TABLET (FP) PO SCH (09:43)
[2018-01-12 14:36] VITALS: BP 137/57; TEMP 98.3
[2018-01-12] MEDS ORDERED: CEFTRIAXONE 1 G/50 ML PREMIX 50 ML IVPB SCH (15:00)
--- NOTE | 2018-01-12 16:04 | DS ---
Physical Exam: SUBJECTIVE: Patient seen and examined, denies any abdominal pain, tolerating meals OBJECTIVE: This is a 42 year old male with a past medical history significant for HTN, chronic back pain and multiple hernia repairs who presented to the ED with LLQ abdominal pain off and on x 6 days. He states the pain started last week after he lifted something heavy at work and then became worse after he went bowling 2 days later. He also reports B/L LE swelling x 2 days, significantly worse today. ER course was notable for: (1) BUN 51/Cr 2.2 (2) WBC 15.7 Vital Signs Period Temp Pulse Resp BP Sys/Hubbard Pulse Ox Last 24 Hr 98.1 F-100 F 80-94 18-20 114-158/44-72 93-97 PHYSICAL EXAM GENERAL: The patient is awake, alert, and fully oriented, in no acute distress. HEAD: Normal with no signs of trauma. EYES: PERRL, extraocular movements intact, sclera anicteric, conjunctiva clear. ENT: Ears normal, nares patent, oropharynx clear without exudates, moist mucous membranes. NECK: Trachea midline, full range of motion, supple. LUNGS: Breath sounds equal, clear to auscultation bilaterally, no wheezes, no crackles, no accessory muscle use. HEART: Regular rate and rhythm, S1, S2 without murmur, rub or gallop. ABDOMEN: Soft, nontender, nondistended, normoactive bowel sounds, no guarding, no rebound, no hepatosplenomegaly, no masses. EXTREMITIES: 2+ pulses, warm, well-perfused, no edema. NEUROLOGICAL: Cranial nerves II through XII grossly intact. Normal speech, gait not observed. PSYCH: Normal mood, normal affect. SKIN: Warm, dry, normal turgor, no rashes or lesions noted. LABS Laboratory Results - last 24 hr 01/10/18 07:40 Iron 20 L TIBC 169 L Iron Saturation 12 L CBC WBC 11.0 K/mm3 (4.0-10.8) H 01/10/18 07:30 RBC 3.58 M/mm3 (4.00-5.60) L 01/10/18 07:30 Hgb 9.7 GM/dl (11.7-16.9) L 01/10/18 07:30 Hct 28.8 % (35.4-49) L 01/10/18 07:30 MCV 80.4 fl (80-96) 01/10/18 07:30 MCH 27.0 pg (25.7-33.7) 01/10/18 07:30 MCHC 33.6 g/dl (32.0-35.9) 01/10/18 07:30 RDW 14.9 % (11.9-15.9) 01/10/18 07:30 Plt Count 361 K/MM3 (134-434) 01/10/18 07:30 MPV 10.2 fl (7.5-11.1) 01/10/18 07:30 Neutrophils % No Result Required. 01/10/18 07:30 Neutrophils % (Manual) 82.0 % (42.8-82.8) 01/10/18 07:30 Band Neutrophils % 6.0 % (0-10) 01/09/18 14:30 Lymphocytes % No Result Required. 01/10/18 07:30 Lymphocytes % (Manual) 11.0 % (8-40) D 01/10/18 07:30 Monocytes % (Manual) 7 % (3.8-10.2) D 01/10/18 07:30 Basophils % [place] 01/09/18 14:30 Platelet Estimate Adequate 01/10/18 07:30 Retic Count 0.80 % (0.5-1.5) 01/10/18 07:40 CMP Sodium 135 mmol/L (136-145) L 01/11/18 08:00 Potassium 3.6 mmol/L (3.5-5.1) D 01/11/18 08:00 Chloride 104 mmol/L (98-107) 01/11/18 08:00 Carbon Dioxide 24 mmol/L (22-28) 01/11/18 08:00 Anion Gap 7 (8-16) L 01/11/18 08:00 BUN 19 mg/dl (7-18) H D 01/11/18 08:00 Creatinine 1.0 mg/dl (0.6-1.3) D 01/11/18 08:00 Creat Clearance w eGFR 55.58 (>60) 01/10/18 07:30 Random Glucose 99 mg/dl (74-106) D 01/11/18 08:00 Calcium 7.6 mg/dl (8.4-10.2) L 01/11/18 08:00 Phosphorus 3.8 mg/dl (2.5-4.6) 01/10/18 07:30 Magnesium 1.7 mg/dL (1.8-2.4) L 01/11/18 08:00 Iron 20 ug/dL (38-169) L 01/10/18 07:40 TIBC 169 ug/dL (250-450) L 01/10/18 07:40 Iron Saturation 12 % (15-55) L 01/10/18 07:40 Ferritin 806.953 ng/ml (16.4-293.9) H 01/10/18 07:40 Total Bilirubin < 0.5 mg/dl (0.2-1.0) 01/10/18 07:30 AST 24 U/L (10-42) D 01/10/18 07:30 ALT 35 U/L (10-40) D 01/10/18 07:30 Alkaline Phosphatase 65 U/L (32-92) 01/10/18 07:30 Total Protein 5.3 g/dl (6.4-8.3) L 01/10/18 07:30 Albumin 1.9 g/dl (3.5-5.0) L 01/10/18 07:[address] of abdomen and pelvis without contrast, mild left hydronephrosis questionable mild ureteropelvic junction obstruction, no urolithiasis, left inguinal hernia containing fat, splenomegaly, cholelithiasis, L3-L4 central canal stenosis, L5-S1 grade 1 spondylolisthesis ultrasound of abdomen: gallbladder sludge, hepatosplenomegaly, no cholelithiasis Ultrasound of bladder: small post void residual, mild left hydronephrosis or obvious obstruction renal scan: delayed corticomedulllary transit secondary to an element of medical renal disease HOSPITAL COURSE: 1) GI abdominal pain - resolved Transaminitis resolved, T bili WNL GERD - continue protonix 2) nephrology AGATHA - Repeat creatinine 1.0 after IV hydration, creatinine is now at baseline, secondary to hypovolemia 3) Urinary tract infection -Preliminary culture positive for lactose fermenting criteria will start Rocephin - Patient reports he is sexually active with female partner several months ago, will send gonorrhea and chlamydia culture 3) cardiovascular hypertension - valsartan and dyazide held secondary to AGATHA - b/p remained at goal 4) urinary tract infection - urine culture + for ecoli, treated with rocephin and transitioned to ciprofloxacin Date of Admission:01/09/18 Date of Discharge: 01/12/18 Minutes to complete discharge: 45 Discharge Summary Reason For Visit: HYDONEPHROSIS,ACUTE RENAL FAILURE Current Active Problems Acute kidney failure (Acute) Hydronephrosis (Acute) Condition: Stable - Instructions Referrals: Chuckie Foreman MD [Primary Care Provider] - - Home Medications Comprehensive Discharge Medication List: Ambulatory Orders Acetaminophen 650 mg PO Q6H PRN 01/09/18 Esomeprazole Magnesium [Nexium 24Hr] 22.3 mg PO DAILY 01/09/18 Ibuprofen [Motrin -] 600 mg PO TID PRN 01/09/18 Methadone [Dolophine -] 10 mg PO TID 01/09/18 Triamterene/Hydrochlorothiazid [Triamterene-Hctz 37.5-25 mg Cp] 1 each PO DAILY 01/09/18 Valsartan 320 mg PO DAILY 01/09/18 - Discharge Referral Referred to [facility] No
[2018-01-12] MEDS ORDERED: FERROUS SO4 325 MG TABLET (FP) PO SCH (22:00)
== END 2018-01-12 17:15 | disposition home or self-care (01) ==
LOC: FER 13:23 → FM/S 19:26
PROVIDERS: ADMIT Internal Medicine; ATTEND Nurse Practitioner Family
PROC: 3E03329 Introduction of Other Anti-infective into Peripheral Vein, Percutaneous Approach (ICD-10-PCS; principal; 2018-01-09)
PROC: 3E033GC Introduction of Other Therapeutic Substance into Peripheral Vein, Percutaneous Approach (ICD-10-PCS; 2018-01-09)
PROC: 3E0337Z Introduction of Electrolytic and Water Balance Substance into Peripheral Vein, Percutaneous Approach (ICD-10-PCS; 2018-01-09)
DX: N17.9 Acute kidney failure, unspecified (principal); N13.30 Unspecified hydronephrosis; R10.32 Left lower quadrant pain; R10.12 Left upper quadrant pain; N39.0 Urinary tract infection, site not specified; I10 Essential (primary) hypertension; F17.200 Nicotine dependence, unspecified, uncomplicated; M54.9 Dorsalgia, unspecified; G89.29 Other chronic pain; D72.829 Elevated white blood cell count, unspecified; K21.9 Gastro-esophageal reflux disease without esophagitis; R74.0 Nonspecific elevation of levels of transaminase and lactic acid dehydrogenase [LDH]; E66.9 Obesity, unspecified; Z68.41 Body mass index [BMI] 40.0-44.9, adult
CPT/HCPCS: 36415; 74176-TC; 76700-TC; 76856-TC; 78708-TC; 80048; 80053; 81003; 81015; 82728; 83540; 83550; 83735; 84100; 85025; 85044; 87086; 87186; 87491; 87591; 99282-25; A9562; G0378; J7030

== ENCOUNTER 2019-08-02 23:37 | Emergency (ER) | payer SELFPAY ==
[2019-08-03 00:10] VITALS: TEMP 98; BMI 40.4
--- NOTE | 2019-08-03 00:12 | PDOC ---
History of Present Illness - General Chief Complaint: Edema Stated Complaint: FLUID IN LEGS & FFET Time Seen by Provider: 08/03/19 00:11 - History of Present Illness Initial Comments: 08/03/19 00:11 43 yo M PMH HTN, chronic back pain, gastric bypass s/p adhesion removal, multiple hernia repairs, on methadone, 1ppd smoker for about 15 years, p/w BLE swelling. Patient reports that he has had low grade swelling for months, confined to his feet, but approximately 3 weeks ago it began to worsen. Saw his PCP 2 weeks ago, who prescribed him Lasix. However, patient has not been taking this medication due to not being able to afford it. Over the past 2-3 days, the swelling has significantly worsened, to the point that the patient was having extreme difficulty in putting on his socks or shoes , leading him to come in today. Specifically denies recent travel or immobilization. Denies CP, SOB, fevers/chills, constipation/diarrhea, PECK, N/V, abd pain. Past History - Past Medical History Allergies/Adverse Reactions: Allergies Allergy/AdvReac Type Severity Reaction Status Date / Time No Known Allergies Allergy Verified 08/03/19 00:08 Home Medications: Ambulatory Orders Acetaminophen 650 mg PO Q6H PRN 01/09/18 Esomeprazole Magnesium [Nexium 24Hr] 22.3 mg PO DAILY 01/09/18 Methadone [Dolophine -] 10 mg PO TID 01/09/18 Valsartan 320 mg PO DAILY 01/09/18 Ciprofloxacin [Cipro -] 500 mg PO Q12H #14 tablet 01/12/18 Ferrous Sulfate [Feosol] 325 mg PO BID #90 ud 01/12/18 Asthma: No COPD: No HTN: Yes (currently not tx) Liver Disease: No - Surgical History Abdominal Surgery: Yes (HERNIA REPAIR) Gastric Stapling: Yes - Psycho Social/Smoking Cessation Hx Smoking History: Never smoked Have you smoked in the past 12 months: No Number of Cigarettes Smoked Daily: 20 If you are a former smoker, when did you quit?: 06/03 Information on smoking cessation initiated: No 'Breaking Loose' booklet given: 12/19/15 Hx Alcohol Use: No Drug/Substance Use Hx: No Substance Use Type: None Hx Substance Use Treatment: Yes Review of Systems - Review of Systems Comments:: 08/03/19 00:38 GENERAL/CONSTITUTIONAL: No fever or chills. No weakness. HEAD, EYES, EARS, NOSE AND THROAT: No change in vision. No ear pain or discharge. No sore throat. CARDIOVASCULAR: No chest pain or shortness of breath. RESPIRATORY: No cough, wheezing, or hemoptysis. GASTROINTESTINAL: No nausea, vomiting, diarrhea or constipation. GENITOURINARY: No dysuria, frequency, or change in urination. MUSCULOSKELETAL: No joint or muscle swelling or pain. No neck or back pain. SKIN: No rash NEUROLOGIC: No headache, vertigo, loss of consciousness, or change in strength/ sensation. ENDOCRINE: No increased thirst. No abnormal weight change. HEMATOLOGIC/LYMPHATIC: No anemia, easy bleeding, or history of blood clots. ALLERGIC/IMMUNOLOGIC: No hives or skin allergy *Physical Exam - Vital Signs Last Vital Signs Temp Pulse Resp BP Pulse Ox 98.0 F 78 20 167/70 94 L 08/03/19 00:08 08/03/19 00:08 08/03/19 00:08 08/03/19 00:08 08/03/19 00:08 - Physical Exam 08/03/19 00:41 Gen: well-developed, well-nourished, NAD Neuro: AAOX4, CN II-XII intact, FTN intact, EOMI, PERRLA, 5/5 strength, SILT HEENT: atraumatic, normocephalic, dry mucous membranes Neck: trachea midline, supple CV: regular rate, regular rhythm, no murmurs, rubs, or gallops Pulm: CTA b/l, no wheezing Abd: soft, non-distended, non-tender MSK: full ROM, intact pulses Extr: 3+ pitting edema, R>L, no deformities Skin: warm, dry ED Treatment Course - LABORATORY CBC & Chemistry Diagram: 08/03/19 01:30 08/03/19 01:30 Medical Decision Making - Medical Decision Making 08/03/19 00:43 Differential includes DVT v ARF v new onset CHF v cellulitis v lymphedema. - Duplex US - Chest PA + L - CMP, CBC - EKG - cardiac profile - BNP 08/03/19 01:26 CXR with no acute pathology. 08/03/19 02:00 Patient signed out to Dr. STRAUSS. Discharge - Discharge Information Problems reviewed: Yes Clinical Impression/Diagnosis: Lower extremity edema Condition: Improved Disposition: HOME - Follow up/Referral Referrals: Chuckie Foreman MD [Primary Care Provider] - - Patient Discharge Instructions Patient Printed Discharge Instructions: DI for Dependent Edema Additional Instructions: Today you were evaluated for swelling in your legs. Your blood labs do not show evidence of heart disease, infection, or anemia. Your ultrasound does not show any blood clots in your lungs. We have given you a medication called Lasix to help with your leg swelling. However, you do not have any other symptoms of heart failure that require inpatient admission at this time. Please follow-up with your primary doctor for further care of your legs and methadone treatment. If you experience worsening swelling, shortness of breath, chest pain, become unable to walk, or have any other new or concerning symptoms , please return to the emergency room. - Post Discharge Activity
--- NOTE | 2019-08-03 01:08 | PDOC ---
Attending Attestation - Resident Resident Name: Danita Vargas - ED Attending Attestation I have performed the following: I have examined & evaluated the patient, The case was reviewed & discussed with the resident, I agree w/resident's findings & plan, Exceptions are as noted - HPI HPI: 08/03/19 01:09 Mr. Quinn is a 43 yo M h/o HTN, chronic back pain, gastric bypass s/p adhesion removal, multiple hernia repairs, on methadone, 1ppd smoker for about 15 years who presents with a complaint of progressively worsening bilateral lower extremity edema Over the past 2 weeks, he has noted these symptoms have worsened Pt saw PMD 2 weeks ago, did not want to do labs, could not afford the Lasix that her was prescribed Pt lower extremity edema worsened Pt sleeps with his legs down due to comfort (not due to orthopnea) Pt has been eating more salt and sugar (having Ramen noodles and soda because it is what he can afford) Pt denies fevers, chills, warmth, erythema, open wounds/drainage He has difficulty putting on his socks or shoes due to swelling Pt denies CP, SOB, PARKER - Physicial Exam PE: 08/03/19 01:14 GENERAL: The patient is in no acute distress. ENT: Ears normal, nares patent, oropharynx clear without exudates. Moist mucous membranes. NECK: Normal range of motion, supple LUNGS: Breath sounds equal, clear to auscultation bilaterally. No wheezes, and no crackles. HEART:Regular rate and rhythm, normal S1 and S2 without murmur, rub or gallop. ABDOMEN: Soft, nontender, normoactive bowel sounds. EXTREMITIES: Bilateral lower extremity and foot edema, no erythema, non tender, no ulcers or drainage NEUROLOGICAL: Cranial nerves II through XII grossly intact. Normal speech. No focal neurological deficits. SKIN: Warm, Dry, normal turgor, no rashes or lesions noted. - Medical Decision Making 08/03/19 01:17 43 yo M presenting to the ER due to progressively worsening lower extremity edema He had an admission to the hospital 1 year ago for AGATHA due to intrinsic kidney infection Pt was supposed to be on Lasix but could not afford to get the medication Will do: Labs Duplex Lasix (once we can review labs) ReAssess Signed out to Dr Chino pending labs, pending re assessment
--- NOTE | 2019-08-03 02:03 | PDOC ---
*Physical Exam - Vital Signs Last Vital Signs Temp Pulse Resp BP Pulse Ox 98.0 F 78 20 167/70 94 L 08/03/19 00:08 08/03/19 00:08 08/03/19 00:08 08/03/19 00:08 08/03/19 00:08 - Physical Exam General Appearance: Yes: Nourished, Appropriately Dressed, Obese HEENT: positive: EOMI, ANCA, Normal Voice, Symmetrical, Pharynx Normal, Hearing Grossly Normal Neck: positive: Supple. negative: Tender, Lymphadenopathy (R), Lymphadenopathy (L) Respiratory/Chest: positive: Lungs Clear, Normal Breath Sounds. negative: Chest Tender, Respiratory Distress Cardiovascular: positive: Regular Rhythm, Regular Rate Extremity: positive: Pedal Edema (4+ bilaterally), Other (neurovascular intact, sensation intact to LT, weight bearing, full DOUGLAS at all BLE joints) ED Treatment Course - LABORATORY CBC & Chemistry Diagram: 08/03/19 01:30 08/03/19 01:30 Medical Decision Making - Medical Decision Making 08/03/19 02:00 Signed out to my by Dr. Vargas. HTN, ARF, methadone, gastric bypass, hernia repairs, s/p adhesion removal BLE swelling R>L started 3 wk ago PMD 2 wk ago, prescribed, lasix could not afford 2 days ago shoes wouldn't fit 4+ pitting edema now CXR unremarkable [X] Duplex [X] ECG [X] labs [] admit 08/03/19 02:06 US negative for DVT Labs unremarkable. 08/03/19 04:15 Spoke with patient. Recently laid off his job, says he has zero money. Filled his prescription for methadone but says he could not pay for other medicines. Has been cutting his methadone to make it last. Living out of a friend's house, hoping to get insurance by the end of the month. Giving 20mg Lasix IV for LE edema. No indication to admit at this time, no evidence of cellulitis, no DVT. Legs non-tender, no SOB, lungs clear of crackles. No evidence of CHF exacerbation. Patient discharged home. Discharge - Discharge Information Problems reviewed: Yes Clinical Impression/Diagnosis: Lower extremity edema Condition: Improved Disposition: HOME - Follow up/Referral Referrals: Chuckie Foreman MD [Primary Care Provider] - - Patient Discharge Instructions Patient Printed Discharge Instructions: DI for Dependent Edema Additional Instructions: Today you were evaluated for swelling in your legs. Your blood labs do not show evidence of heart disease, infection, or anemia. Your ultrasound does not show any blood clots in your lungs. We have given you a medication called Lasix to help with your leg swelling. However, you do not have any other symptoms of heart failure that require inpatient admission at this time. Please follow-up with your primary doctor for further care of your legs and methadone treatment. If you experience worsening swelling, shortness of breath, chest pain, become unable to walk, or have any other new or concerning symptoms , please return to the emergency room. - Post Discharge Activity
[2019-08-03 02:06] LABS: BASO % 1.2 % (0-2.0); EOS % 2.5 % (0-4.5); HEMATOCRIT 39.7 % (35.4-49); HEMOGLOBIN 13.2 GM/dL (11.7-16.9); LYMPH % 23.4 % (8-40); MCH 26.9 pg (25.7-33.7); MCHC 33.1 g/dl (32.0-35.9); MEAN CELL VOLUME 81.3 fl (80-96); MEAN PLT VOLUME 8.7 fl (7.5-11.1); MONO % 8.8 % (3.8-10.2); NEUT % 64.1 % (42.8-82.8); PLATELET COUNT 276 K/MM3 (134-434); RBC 4.89 M/mm3 (4.00-5.60); RDW 14.7 % (11.9-15.9); WHITE BLOOD COUNT 7.7 K/mm3 (4.0-10.0)
[2019-08-03 02:35] LABS: N-TERMINAL BNP 69.6 pg/ml (5-125)
[2019-08-03 02:37] LABS: ALBUMIN 3.6 g/dl (3.4-5.0); BILIRUBIN,TOTAL 0.2 mg/dL (0.2-1); BLOOD UREA NITROGEN 11.7 mg/dL (7-18); CREATININE 0.7 mg/dL (0.55-1.3); POTASSIUM 4.3 mmol/L (3.5-5.1)
[2019-08-03] MEDS ORDERED: FUROSEMIDE 40 MG/4 ML INJECTABLE VIAL IVPUSH ONE (04:14)
[2019-08-03] MEDS ORDERED: FUROSEMIDE 40 MG/4 ML INJECTABLE VIAL ONE (04:24)
[2019-08-03 05:28] VITALS: BP 140/79; PULSE 88
--- NOTE | 2019-08-03 13:14 | EKG ---
Test Reason : Blood Pressure : / mmHG Vent. Rate : 078 BPM Atrial Rate : 078 BPM P-R Int : 148 ms QRS Dur : 108 ms QT Int : 392 ms P-R-T Axes : 032 059 029 degrees QTc Int : 446 ms NORMAL SINUS RHYTHM NORMAL ECG WHEN COMPARED WITH ECG OF 28-MAR-2007 15:01, NO SIGNIFICANT CHANGE WAS FOUND Confirmed by MARQUITA CLAROS MD ([id number]) on 08/03/2019 1:13:56 PM Referred By: Confirmed By:MARQUITA CLAROS MD
== END 2019-08-03 05:29 | disposition home or self-care (01) ==
LOC: JER 23:37
PROC: 3E033GC Introduction of Other Therapeutic Substance into Peripheral Vein, Percutaneous Approach (ICD-10-PCS; principal; 2019-08-02)
DX: M79.89 Other specified soft tissue disorders (principal); I10 Essential (primary) hypertension; Z87.891 Personal history of nicotine dependence; G89.29 Other chronic pain; Z79.891 Long term (current) use of opiate analgesic; Z98.84 Bariatric surgery status; K46.9 Unspecified abdominal hernia without obstruction or gangrene; M54.9 Dorsalgia, unspecified
CPT/HCPCS: 36415; 71046-TC-FY; 80053; 82550; 82553; 83880; 84484; 85025; 93005; 93010; 93970-TC; 99283-25

== ENCOUNTER 2019-09-16 21:33 | Emergency (ER) | payer OTHER ==
[2019-09-16 21:47] VITALS: TEMP 98.1; BMI 41.1
--- NOTE | 2019-09-17 04:21 | PDOC ---
Attending Attestation - Resident Resident Name: JesusitaDanny - ED Attending Attestation I have performed the following: I have examined & evaluated the patient, The case was reviewed & discussed with the resident, I agree w/resident's findings & plan - HPI HPI: 09/17/19 05:35 Pt is homeless and he says that he slipped and fell and injured his right knee. Pt says that he has chronic gastritis and has no meds, as he has no insurance. Pt has no other complaints. - Physicial Exam PE: 09/22/19 06:39 Agree with resident exam - Medical Decision Making 09/22/19 06:39 Work up: patient likely, based on history and physical exam, has a meniscus tear on the medial aspect. will require outpatient follow up with his PMD for MRI. Patient was given a knee brace to minimize symptoms. In addition, the patient complains of stomach pain that he states is chronic and feels like his peptic ulcers. He denies melena and hematochezia and denies hematemesis. The patient was given a prescription for ranitidine. Dispo; Discharge. The patient was able to ambulate out of the department on his own volition. 09/22/19 06:39 Pt given a knee immobilizer; no need for XRAY, as pt is ambulating. He will require an MRI in the future.
--- NOTE | 2019-09-17 05:28 | PDOC ---
History of Present Illness - General Chief Complaint: Pain Stated Complaint: FALL Time Seen by Provider: 09/17/19 03:30 History Source: Patient Exam Limitations: No Limitations - History of Present Illness Initial Comments: 43 yo M with a hx of HTN presents to the emergency department with right knee pain s/p fall he sustained after slipping down a set of stairs. Denies head trauma and LOC. Per the patient, he stated he slipped on a stair case. Per the patient, he feels pain when he locks in his right knee, but denies pain with ambulation or while at rest. Denies the following: loss of strength in the right leg, loss of sensation in the right leg, fever, headache, palpitations, chest pain, SOB, abdominal pain, and ears/nose/throat pain. allergies: NKDA Past History - Past Medical History Allergies/Adverse Reactions: Allergies Allergy/AdvReac Type Severity Reaction Status Date / Time No Known Allergies Allergy Verified 08/03/19 00:08 Home Medications: Ambulatory Orders Acetaminophen 650 mg PO Q6H PRN 01/09/18 Esomeprazole Magnesium [Nexium 24Hr] 22.3 mg PO DAILY 01/09/18 Methadone [Dolophine -] 10 mg PO TID 01/09/18 Valsartan 320 mg PO DAILY 01/09/18 Ciprofloxacin [Cipro -] 500 mg PO Q12H #14 tablet 01/12/18 Ferrous Sulfate [Feosol] 325 mg PO BID #90 ud 01/12/18 Ranitidine HCl 300 mg PO DAILY #30 capsule 09/17/19 Asthma: No COPD: No HTN: Yes (currently not tx) Liver Disease: No - Surgical History Abdominal Surgery: Yes (HERNIA REPAIR) Gastric Stapling: Yes - Immunization History Td Vaccination: Yes TDAP Vaccination: Yes Immunization Up to Date: Yes - Psycho Social/Smoking Cessation Hx Smoking History: Current some day smoker Have you smoked in the past 12 months: No Number of Cigarettes Smoked Daily: 5 If you are a former smoker, when did you quit?: 06/03 Information on smoking cessation initiated: Yes 'Breaking Loose' booklet given: 12/19/15 Hx Alcohol Use: No Drug/Substance Use Hx: No Substance Use Type: None Hx Substance Use Treatment: Yes Review of Systems - Review of Systems Able to Perform ROS?: Yes Is the patient limited Georgian proficient: No Constitutional: No: Chills, Diaphoresis, Fever, Weakness HEENTM: No: Eye Pain, Ear Pain, Nose Pain, Throat Pain, Mouth Pain Respiratory: No: Cough, Shortness of Breath, Hemoptysis Cardiac (ROS): No: Chest Pain, Lightheadedness, Palpitations ABD/GI: No: Constipated, Diarrhea, Nausea, Rectal Bleeding, Vomiting, Tarry Stools : No: Burning, Dysuria, Hematuria Musculoskeletal: Yes: Joint Pain (right knee). No: Back Pain, Neck Pain Integumentary: No: Bruising, Erythema, Rash Neurological: No: Headache, Numbness, Tingling, Tremors Psychiatric: No: Change in Appetite Endocrine: No: Unexplained Weight Loss Hematologic/Lymphatic: No: Anemia *Physical Exam - Vital Signs Last Vital Signs Temp Pulse Resp BP Pulse Ox 98.1 F 84 20 137/83 96 09/16/19 21:41 09/16/19 21:41 09/16/19 21:41 09/16/19 21:41 09/16/19 21:41 - Physical Exam General Appearance: Yes: Nourished, Appropriately Dressed, Obese. No: Apparent Distress, Intoxicated HEENT: positive: EOMI, ANCA, Normal Voice, Symmetrical, Pharynx Normal, Hearing Grossly Normal. negative: Pale Conjunctivae, Scleral Icterus (R), Scleral Icterus (L), Muffled/Hoarse voice, Pharyngeal Erythema, Tonsillar Exudate, Tonsillar Erythema, Nasal Congestion, Rhinorrhea, Excessive drooling Neck: positive: Trachea midline, Supple. negative: Tender Respiratory/Chest: positive: Lungs Clear, Normal Breath Sounds. negative: Chest Tender, Respiratory Distress, Accessory Muscle Use Cardiovascular: positive: Regular Rhythm, Regular Rate, S1, S2. negative: Systolic Murmur Gastrointestinal/Abdominal: positive: Normal Bowel Sounds, Flat, Soft. negative : Tender Lymphatic: negative: Adenopathy Musculoskeletal: positive: Normal Inspection. negative: CVA Tenderness, Vertebral Tenderness Extremity: positive: Normal Capillary Refill, Normal Inspection. negative: Normal Range of Motion (pain with locking of the right knee. ), Tender (no tenderness at the joint line, tibia, femur, and fibrular neck. With full extension, a clicking is palpated in the medial joint space. Positive Michelle test on the right knee) Integumentary: positive: Normal Color, Dry, Warm Neurologic: positive: Fully Oriented, Alert, Normal Mood/Affect Medical Decision Making - Medical Decision Making Initial vitals: Initial Vital Signs Temp Pulse Resp BP Pulse Ox 98.1 F 84 20 137/83 96 09/16/19 21:41 09/16/19 21:41 09/16/19 21:41 09/16/19 21:41 09/16/19 21:41 Work up: patient likely, based on history and physical exam, has a meniscus tear on the medial aspect. will require outpatient follow up with his PMD for MRI. Patient was given a knee brace to minimize symptoms. In addition, the patient complains of stomach pain that he states is chronic and feels like his peptic ulcers. He denies melena and hematochezia and denies hematemesis. The patient was given a prescription for ranitidine. Dispo; Discharge. The patient was able to ambulate out of the department on his own volition. Discharge - Discharge Information Problems reviewed: Yes Clinical Impression/Diagnosis: Tear meniscus knee Condition: Fair Disposition: HOME - Additional Discharge Information Prescriptions: Ranitidine HCl 300 mg PO DAILY #30 capsule - Follow up/Referral Referrals: Chuckie Foreman MD [Primary Care Provider] - - Patient Discharge Instructions Patient Printed Discharge Instructions: DI for Meniscal Tear Additional Instructions: Please return to the emergency department if worsening or new concerning symptoms. Please follow up with your primary medical doctor within 1 week after discharge. Thank you. - Post Discharge Activity
[2019-09-17 06:25] VITALS: BP 135/80; PULSE 80
== END 2019-09-17 06:25 | disposition home or self-care (01) ==
LOC: JER 21:33
DX: S83.241A Other tear of medial meniscus, current injury, right knee, initial encounter (principal); W10.8XXA Fall (on) (from) other stairs and steps, initial encounter; Y93.89 Activity, other specified; Y92.89 Other specified places as the place of occurrence of the external cause; Y99.8 Other external cause status; I10 Essential (primary) hypertension; Z72.0 Tobacco use
CPT/HCPCS: 99281-25

== ENCOUNTER 2019-10-02 19:32 | Emergency (ER) | payer OTHER ==
--- NOTE | 2019-10-02 20:23 | PDOC ---
Rapid Medical Evaluation Time Seen by Provider: 10/02/19 20:18 Medical Evaluation: Allergies Allergy/AdvReac Type Severity Reaction Status Date / Time No Known Allergies Allergy Verified 08/03/19 00:08 10/02/19 20:19 Pt presents to the ER for cough, body aches, migraine. Pt states he coughed so hard yesterday he passed out. No flu shot this year. Exam: lungs ctab, no gross neuro deficits Orders: labs, cxr Pt to proceed to the ER for further evaluation 10/02/19 20:22 Discharge Disposition - Diagnosis Cough - Referrals Referrals: Chuckie Foreman MD [Primary Care Provider] - - Patient Instructions - Post Discharge Activity
[2019-10-02 20:25] VITALS: BMI 38.3
[2019-10-02] MEDS ORDERED: SODIUM CHLORIDE 0.9% 500 ML INFUS.BAG IV ONE (20:52)
[2019-10-02] MEDS ORDERED: ACETAMINOPHEN 1000 MG/100 ML VIAL (NON FORMULARY) IVPB ONE (20:52)
[2019-10-02] MEDS ORDERED: ACETAMINOPHEN INJECTION 100 ML IVPB ONE (20:59)
--- NOTE | 2019-10-02 21:12 | PDOC ---
History of Present Illness - General Chief Complaint: Cold Symptoms Stated Complaint: FLU LIKE SYMPTOMS Time Seen by Provider: 10/02/19 20:18 - History of Present Illness Initial Comments: 10/02/19 21:09 43-year-old male with a past medical history of migraines and opioid addiction presents for flulike symptoms x1 week and a headache x3 days typical of his prior migraines Past History - Past Medical History Allergies/Adverse Reactions: Allergies Allergy/AdvReac Type Severity Reaction Status Date / Time No Known Allergies Allergy Verified 08/03/19 00:08 Home Medications: Ambulatory Orders Acetaminophen 650 mg PO Q6H PRN 01/09/18 Esomeprazole Magnesium [Nexium 24Hr] 22.3 mg PO DAILY 01/09/18 Methadone [Dolophine -] 10 mg PO TID 01/09/18 Valsartan 320 mg PO DAILY 01/09/18 Ciprofloxacin [Cipro -] 500 mg PO Q12H #14 tablet 01/12/18 Ferrous Sulfate [Feosol] 325 mg PO BID #90 ud 01/12/18 Ranitidine HCl 300 mg PO DAILY #30 capsule 09/17/19 Asthma: No COPD: No HTN: Yes (currently not tx) Liver Disease: No - Surgical History Abdominal Surgery: Yes (HERNIA REPAIR) Gastric Stapling: Yes - Immunization History Td Vaccination: Yes TDAP Vaccination: Yes Immunization Up to Date: Yes - Psycho Social/Smoking Cessation Hx Smoking History: Never smoked Have you smoked in the past 12 months: No Number of Cigarettes Smoked Daily: 5 If you are a former smoker, when did you quit?: 06/03 'Breaking Loose' booklet given: 12/19/15 Hx Alcohol Use: No Drug/Substance Use Hx: No Substance Use Type: None Hx Substance Use Treatment: Yes Review of Systems - Review of Systems Constitutional: Yes: Fever HEENTM: Yes: Nose Congestion Respiratory: Yes: Cough Neurological: Yes: Headache *Physical Exam - Vital Signs Last Vital Signs Temp Pulse Resp BP Pulse Ox 99.2 F 86 20 121/69 95 10/02/19 20:19 10/02/19 20:19 10/02/19 20:19 10/02/19 20:19 10/02/19 20:19 - Physical Exam 10/02/19 21:09 GENERAL: The patient is awake, alert, and fully oriented, in no acute distress. HEAD: Normal with no signs of trauma. EYES: sclera anicteric, conjunctiva clear. ENT: Ears normal tympanic membranes normal oropharynx clear uvula midline mucous membranes dry NECK: Normal range of motion LUNGS: Breath sounds equal, clear to auscultation bilaterally. No wheezes, and no crackles. HEART: S1 and S2 without murmur, rub or gallop. ABDOMEN: Soft, nontender, normoactive bowel sounds. No guarding, no rebound. No masses. EXTREMITIES: Normal range of motion, no edema. No clubbing or cyanosis. No cords, erythema, or tenderness. NEUROLOGICAL: Cranial nerves II through XII grossly intact. PSYCH: Normal mood, normal affect. SKIN: Warm, Dry, normal turgor, no rashes or lesions noted. 10/02/19 21:10 ED Treatment Course - RADIOLOGY Radiology Studies Ordered: Category Date Time Status CHEST PA & LAT [RAD] Stat Radiology 10/02/19 20:50 Taken - Medications Given in the ED: ED Medications Discontinued Medications Generic Name Dose Route Start Last Admin Trade Name Freq PRN Reason Stop Dose Admin Acetaminophen 1,000 mg 10/02/19 20:52 10/02/19 20:56 Ofirmev Injection - IVPB 10/02/19 20:53 1,000 mg ONCE ONE Administration Sodium Chloride 1,000 ml 10/02/19 20:52 10/02/19 20:56 Normal Saline - IV 10/02/19 20:53 1,000 ml ONCE ONE Administration Medical Decision Making - Medical Decision Making 10/02/19 21:09 Most likely viral upper respiratory infection possibly influenza flu is negative mucous membranes appear dry on examination supportive care chest x-ray clear 10/02/19 22:07 Patient include after fluids and Ofirmev supportive care for viral upper respiratory infection. Discharge - Discharge Information Problems reviewed: Yes Clinical Impression/Diagnosis: Cough, Viral URI with cough Condition: Stable Disposition: HOME - Admission No - Follow up/Referral Referrals: Chuckie Foreman MD [Primary Care Provider] - - Patient Discharge Instructions Additional Instructions: Tylenol and Motrin for fevers. Return to the emergency room for worsening symptoms. Follow-up with your primary care physician in 2 to 3 days without fail. - Post Discharge Activity
[2019-10-02] MEDS ORDERED: ONDANSETRON 4 MG/2 ML VIAL IVPUSH ONE (21:19)
[2019-10-02] MEDS ORDERED: ONDANSETRON 4 MG/2 ML VIAL ONE (21:21)
[2019-10-02 22:26] VITALS: BP 120/72; PULSE 82; TEMP 98.9
== END 2019-10-02 22:26 | disposition home or self-care (01) ==
LOC: JERFT 19:32
PROC: 3E033NZ Introduction of Analgesics, Hypnotics, Sedatives into Peripheral Vein, Percutaneous Approach (ICD-10-PCS; principal; 2019-10-02)
DX: J06.9 Acute upper respiratory infection, unspecified (principal); B97.89 Other viral agents as the cause of diseases classified elsewhere
CPT/HCPCS: 71046-TC-FY; 87804; 99284-25; J0131

== ENCOUNTER 2019-10-13 16:28 | Inpatient (IN) | payer SELFPAY ==
--- NOTE | 2019-10-13 18:11 | PDOC ---
History of Present Illness - General Chief Complaint: Rectal Bleed Stated Complaint: BLOOD IN STOOL X 2DAYS Time Seen by Provider: 10/13/19 17:54 - History of Present Illness Initial Comments: 10/13/19 18:51 43 yo M PMH HTN, chronic back pain, gastric bypass (2004; Dr. Gonzalez), multiple hernia repairs, on methadone, 1ppd smoker for about 15 years, hx of peptic ulcer dx 2004 by EGD presents to the emergency department with black and red stool without abdominal pain. Per the patient, he has had melena in the past. Last night, he had black stool with "2 teaspoons" of bright red blood and today had 2x episodes with similar quantities. The patient denies pain with these episodes. Per the patient, his last EGD/colonoscopy was in [id number] and only had a positive finding of peptic ulcer. The patient endorses having 45 lb weightloss that was, per the patient, "partially intentional". Of note, the patient has unstable housing and is not compliant with seeing his physicians. Endorses nausea without vomiting last night but denies current nausea. Denies the following: hx of liver disease, fevers, chills, lightheadedness, chest pain , SOB, abdominal pain, dysuria, hematuria, diarrhea, and leg pain/swelling. Shx: gastric bypass and hernia repair Past History - Past Medical History Allergies/Adverse Reactions: Allergies Allergy/AdvReac Type Severity Reaction Status Date / Time No Known Allergies Allergy Verified 10/14/19 01:13 Home Medications: Ambulatory Orders Acetaminophen 650 mg PO Q6H PRN 01/09/18 Methadone [Dolophine -] 10 mg PO TID 10/14/19 Asthma: No COPD: No HTN: Yes (currently not tx) Liver Disease: No - Surgical History Abdominal Surgery: Yes (HERNIA REPAIR) Gastric Stapling: Yes - Immunization History Td Vaccination: Yes TDAP Vaccination: Yes Immunization Up to Date: Yes - Psycho Social/Smoking Cessation Hx Smoking History: Current every day smoker Have you smoked in the past 12 months: No Number of Cigarettes Smoked Daily: 10 If you are a former smoker, when did you quit?: 06/03 Information on smoking cessation initiated: Yes 'Breaking Loose' booklet given: 12/19/15 Hx Alcohol Use: No Drug/Substance Use Hx: Yes Substance Use Type: None Hx Substance Use Treatment: Yes Review of Systems - Review of Systems Able to Perform ROS?: Yes Is the patient limited Honduran proficient: No Constitutional: No: Chills, Diaphoresis, Fever, Weakness HEENTM: No: Eye Pain, Ear Pain, Nose Pain, Throat Pain, Mouth Pain Respiratory: No: Cough, Shortness of Breath, Hemoptysis Cardiac (ROS): No: Chest Pain, Lightheadedness, Palpitations, Chest Tightness ABD/GI: Yes: Rectal Bleeding, Tarry Stools. No: Constipated, Diarrhea, Nausea, Poor Appetite, Poor Fluid Intake, Vomiting, Abdominal cramping : No: Burning, Dysuria, Hematuria Musculoskeletal: No: Back Pain, Joint Pain, Neck Pain Integumentary: No: Bruising, Erythema, Rash Neurological: No: Headache, Numbness, Tingling, Tremors Psychiatric: No: Change in Appetite Endocrine: Yes: Change in Weight Hematologic/Lymphatic: No: Anemia *Physical Exam - Vital Signs Last Vital Signs Temp Pulse Resp BP Pulse Ox 98.0 F 92 H 166/80 98 10/13/19 17:05 10/13/19 17:05 10/13/19 17:05 10/13/19 17:05 - Physical Exam General Appearance: Yes: Nourished, Appropriately Dressed, Obese. No: Apparent Distress, Intoxicated HEENT: positive: EOMI, ANCA, Normal Voice, Symmetrical, Pharynx Normal, Hearing Grossly Normal. negative: Pale Conjunctivae, Scleral Icterus (R), Scleral Icterus (L), Muffled/Hoarse voice, Pharyngeal Erythema, Tonsillar Exudate, Tonsillar Erythema, Nasal Congestion, Rhinorrhea, Excessive drooling Neck: positive: Trachea midline, Supple. negative: Tender, Lymphadenopathy (R) , Lymphadenopathy (L), Tender lateral, Tender midline Respiratory/Chest: positive: Lungs Clear, Normal Breath Sounds. negative: Chest Tender, Respiratory Distress, Accessory Muscle Use, Crackles, Rales, Rhonchi, Stridor, Wheezing, Hyperresonant Cardiovascular: positive: Regular Rhythm, Regular Rate, S1, S2. negative: Systolic Murmur Gastrointestinal/Abdominal: positive: Normal Bowel Sounds, Flat, Soft. negative : Tender, Distended, Guarding, Rebound Rectal Exam: positive: normal rectal tone, melena, heme positive stool. negative: NL Prostate (slightly enlarged prostate), hemorrhoids Lymphatic: negative: Adenopathy Musculoskeletal: positive: Normal Inspection. negative: CVA Tenderness, Vertebral Tenderness Extremity: positive: Normal Capillary Refill, Normal Inspection, Normal Range of Motion. negative: Tender, Swelling, Calf Tenderness Integumentary: positive: Normal Color, Dry, Warm. negative: Swelling, Ecchymosis Neurologic: positive: Fully Oriented, Alert, Normal Mood/Affect ED Treatment Course - LABORATORY CBC & Chemistry Diagram: 10/14/19 11:07 10/14/19 11:07 Medical Decision Making - Medical Decision Making 43 yo M PMH HTN, chronic back pain, gastric bypass (2004; Dr. Gonzalez), multiple hernia repairs, on methadone, 1ppd smoker for about 15 years, hx of peptic ulcer dx 2004 by EGD presents to the emergency department with black and red stool without abdominal pain. Initial vitals: Initial Vital Signs Temp Pulse BP Pulse Ox 98.0 F 92 H 166/80 98 10/13/19 17:05 10/13/19 17:05 10/13/19 17:05 10/13/19 17:05 Work up: ddx: patient presents to the emergency department with UGIB and LGIB symptoms. The patient is homeless and has unstable housing with sporadic healthcare contact due to social reasons. These symptoms of UGIB and LGIB occurred since last night. The patient has a known history of peptic ulcer with worsening gastric bloating and full sensation over the past month. The patient takes ibuprofen every other day 400 mg and stopped approximately 4 days ago. Laboratory Tests 10/13/19 10/13/19 10/13/19 18:00 18:00 18:00 WBC RBC Hgb Hct MCV MCH MCHC RDW Plt Count MPV Absolute Neuts (auto) Neutrophils % Lymphocytes % Monocytes % Eosinophils % Basophils % Nucleated RBC % PT with INR INR Sodium 142 Potassium 4.0 Chloride 108 H Carbon Dioxide 29 Anion Gap 5 L BUN 17.1 Creatinine 0.6 Est GFR (CKD-EPI)AfAm 142.72 Est GFR (CKD-EPI)NonAf 123.14 Random Glucose 101 Lactic Acid 0.7 Calcium 8.8 Magnesium 2.3 Total Bilirubin 0.3 AST 24 ALT 26 Alkaline Phosphatase 90 Troponin I < 0.02 Total Protein 7.2 Albumin 3.9 Lipase 93 Stool Occult Blood Blood Type Antibody Screen 10/13/19 10/13/19 10/13/19 18:00 18:00 19:15 WBC 7.4 RBC 4.55 Hgb 12.3 Hct 36.7 MCV 80.7 MCH 26.9 MCHC 33.4 RDW 14.9 Plt Count 388 D MPV 8.7 Absolute Neuts (auto) 4.8 Neutrophils % 64.6 Lymphocytes % 23.3 Monocytes % 9.6 Eosinophils % 2.1 Basophils % 0.4 Nucleated RBC % 0 PT with INR INR Sodium Potassium Chloride Carbon Dioxide Anion Gap BUN Creatinine Est GFR (CKD-EPI)AfAm Est GFR (CKD-EPI)NonAf Random Glucose Lactic Acid Calcium Magnesium Total Bilirubin AST ALT Alkaline Phosphatase Troponin I Total Protein Albumin Lipase Stool Occult Blood Positive Blood Type O POSITIVE Antibody Screen Negative 10/13/19 19:45 WBC RBC Hgb Hct MCV MCH MCHC RDW Plt Count MPV Absolute Neuts (auto) Neutrophils % Lymphocytes % Monocytes % Eosinophils % Basophils % Nucleated RBC % PT with INR 12.60 INR 1.07 Sodium Potassium Chloride Carbon Dioxide Anion Gap BUN Creatinine Est GFR (CKD-EPI)AfAm Est GFR (CKD-EPI)NonAf Random Glucose Lactic Acid Calcium Magnesium Total Bilirubin AST ALT Alkaline Phosphatase Troponin I Total Protein Albumin Lipase Stool Occult Blood Blood Type Antibody Screen patient had melena on exam with bright red blood concerning for UGIB and LGIB. lipase negative stool occult positive hemoglobin within normal limits CT shows subsegmental atelectasis in the lower lung brown with no evidence of SB obstruction or mass. Normal appendix THe patient requires admission for UGIB and LGIB work up by gastroenterology. Discharge - Discharge Information Problems reviewed: Yes Clinical Impression/Diagnosis: UGIB (upper gastrointestinal bleed), LGI bleed - Follow up/Referral - Patient Discharge Instructions - Post Discharge Activity
[2019-10-13] MEDS ORDERED: PANTOPRAZOLE SODIUM 40 MG VIAL IVPUSH ONE (18:35)
[2019-10-13] MEDS ORDERED: PANTOPRAZOLE SODIUM 40 MG VIAL ONE (18:41)
[2019-10-13] MEDS ORDERED: ACETAMINOPHEN 1000 MG/100 ML VIAL (NON FORMULARY) IVPB ONE (19:01)
[2019-10-13] MEDS ORDERED: MAG HYDROX/AL HYDROX/SIMETH 30 ML UNIT-DOSE CUP PO ONE (19:01)
[2019-10-13] MEDS ORDERED: ONDANSETRON 4 MG/2 ML VIAL IVPUSH ONE (19:01)
[2019-10-13 19:10] LABS: MAGNESIUM 2.3 mg/dL (1.8-2.4)
[2019-10-13 19:11] LABS: BASO % 0.4 % (0-2.0); EOS % 2.1 % (0-4.5); HEMATOCRIT 36.7 % (35.4-49); HEMOGLOBIN 12.3 GM/dL (11.7-16.9); LYMPH % 23.3 % (8-40); MCH 26.9 pg (25.7-33.7); MCHC 33.4 g/dl (32.0-35.9); MEAN CELL VOLUME 80.7 fl (80-96); MEAN PLT VOLUME 8.7 fl (7.5-11.1); MONO % 9.6 % (3.8-10.2); NEUT % 64.6 % (42.8-82.8); PLATELET COUNT 388 K/MM3 (134-434); RBC 4.55 M/mm3 (4.00-5.60); RDW 14.9 % (11.9-15.9); WHITE BLOOD COUNT 7.4 K/mm3 (4.0-10.0)
[2019-10-13 19:13] LABS: ALBUMIN 3.9 g/dl (3.4-5.0); ALK PHOS 90 U/L (45-117); ANION GAP 5 MMOL/L (8-16); BILIRUBIN,TOTAL 0.3 mg/dL (0.2-1); BLOOD UREA NITROGEN 17.1 mg/dL (7-18); CALCIUM 8.8 mg/dL (8.5-10.1); CHLORIDE 108 mmol/L (98-107); CO2 29 mmol/L (21-32); CREATININE 0.6 mg/dL (0.55-1.3); SGOT/AST 24 U/L (15-37); SGPT/ALT 26 U/L (13-61); SODIUM 142 mmol/L (136-145); TOT PROT 7.2 g/dl (6.4-8.2)
[2019-10-13 19:14] LABS: GLUCOSE,RANDOM 101 mg/dL (74-106)
[2019-10-13] MEDS ORDERED: ONDANSETRON 4 MG/2 ML VIAL ONE (19:30)
[2019-10-13] MEDS ORDERED: MAG HYDROX/AL HYDROX/SIMETH 30 ML UNIT-DOSE CUP ONE (19:30)
[2019-10-13] MEDS ORDERED: ACETAMINOPHEN INJECTION 100 ML IVPB ONE (19:30)
[2019-10-13 20:04] LABS: INR 1.07 (0.83-1.09); PROTHROMBIN TIME (PATIENT) 12.6 SEC (9.7-13.0)
--- NOTE | 2019-10-13 20:11 | PDOC ---
Documentation entered by Meka Lira SCRIBE, acting as scribe for Jackelyn Duffy DO. Jackelyn Duffy DO: This documentation has been prepared by the sriram, Meka Lira SCRIBE, under my direction and personally reviewed by me in its entirety. I confirm that the documentation accurately reflects all work , treatment, procedures, and medical decision making performed by me. Attending Attestation - Resident Resident Name: JesusitaDanny - ED Attending Attestation I have performed the following: I have examined & evaluated the patient, The case was reviewed & discussed with the resident, I agree w/resident's findings & plan - HPI HPI: 10/13/19 19:26 The patient is a 43-year-old male with a past medical history significant for HTN who presents to the emergency department with rectal bleeding. The patient reports two episodes of bright red blood per rectum associated with abdominal bloating. Denies vomiting. Denies the recent use of iron or Pepto Bismol. - Physicial Exam PE: 10/13/19 19:27 Agree with resident. - Medical Decision Making 10/13/19 22:19 43-year-old male with history of gastric bypass surgery now with bright red blood per rectum and melena CT scan of the abdomen and pelvis shows no acute abnormality Rectal exam positive for melena and hematochezia We will admit to medical service for further evaluation
--- NOTE | 2019-10-14 00:28 | HP ---
CHIEF COMPLAINT:blood per rectum PCP: Ahsan HISTORY OF PRESENT ILLNESS: 43 yo Man with a history of morbid obesity, hypertension, chronic back pain for which she takes NSAIDs intermittently, peptic ulcer discovered in 2004 EGD, status post gastric bypass in 2004, undomiciled, multiple hernia repairs, on methadone, 1 pack/day smoker for about 15 years presents with about 2 days of black stools, painless, with about 1 day of bright red blood streaks in his stools. Denied any vomiting however does report some nausea. Decreased appetite. Reports some epigastric pressure as well. ER course was notable for: (1) protonix ivp (2) abdomen/pelvis ct (3) cxr Recent Travel:no PAST MEDICAL HISTORY:no PAST SURGICAL HISTORY:gastric bypass s/p adhesion removal, multiple hernia repairs Social History: Smokinppd smoker for about 15 years Alcohol:no Drugs: no Allergies No Known Allergies Allergy (Verified 08/03/19 00:08) HOME MEDICATIONS: Home Medications Medication Instructions Recorded Acetaminophen 650 mg PO Q6H PRN 01/09/18 Esomeprazole Magnesium [Nexium 22.3 mg PO DAILY 01/09/18 24Hr] Methadone [Dolophine -] 10 mg PO TID 01/09/18 Valsartan 320 mg PO DAILY 01/09/18 Ciprofloxacin [Cipro -] 500 mg PO Q12H #14 tablet 01/12/18 Ferrous Sulfate [Feosol] 325 mg PO BID #90 ud 01/12/18 Ranitidine HCl 300 mg PO DAILY #30 capsule 09/17/19 REVIEW OF SYSTEMS CONSTITUTIONAL: Absent: fever, chills, diaphoresis, generalized weakness, malaise, loss of appetite, weight change HEENT: Absent: rhinorrhea, nasal congestion, throat pain, throat swelling, difficulty swallowing, mouth swelling, ear pain, eye pain, visual changes CARDIOVASCULAR: Absent: chest pain, syncope, palpitations, irregular heart rate, lightheadedness , peripheral edema RESPIRATORY: Absent: cough, shortness of breath, dyspnea with exertion, orthopnea, wheezing, stridor, hemoptysis GASTROINTESTINAL: Absent: abdominal distension, nausea, vomiting, diarrhea, constipation, present- melena, hematochezia, abdominal pain, GENITOURINARY: Absent: dysuria, frequency, urgency, hesitancy, hematuria, flank pain, genital pain MUSCULOSKELETAL: Absent: myalgia, arthralgia, joint swelling, back pain, neck pain SKIN: Absent: rash, itching, pallor HEMATOLOGIC/IMMUNOLOGIC: Absent: easy bleeding, easy bruising, lymphadenopathy, frequent infections ENDOCRINE: Absent: unexplained weight gain, unexplained weight loss, heat intolerance, cold intolerance NEUROLOGIC: Absent: headache, focal weakness or paresthesias, dizziness, unsteady gait, seizure, mental status changes, bladder or bowel incontinence PSYCHIATRIC: Absent: anxiety, depression, suicidal or homicidal ideation, hallucinations. PHYSICAL EXAMINATION Vital Signs - 24 hr 10/13/19 10/13/19 17:05 17:08 Temperature 98.0 F Pulse Rate 92 H Blood Pressure 166/80 O2 Sat by Pulse 98 97 Oximetry (%) GENERAL: Awake, alert, and fully oriented, in no acute distress.Morbid obesity HEAD: Normal with no signs of trauma. EYES: Pupils equal, round and reactive to light, extraocular movements intact, sclera anicteric, conjunctiva clear. No lid lag. EARS, NOSE, THROAT: Ears normal, nares patent, oropharynx clear without exudates. Moist mucous membranes. NECK: Normal range of motion, supple without lymphadenopathy, JVD, or masses. LUNGS: Breath sounds equal, clear to auscultation bilaterally. No wheezes, and no crackles. No accessory muscle use. HEART: Regular rate and rhythm, normal S1 and S2 without murmur, rub or gallop. ABDOMEN: Soft, nontender, not distended, normoactive bowel sounds, no guarding, no rebound, no masses. MUSCULOSKELETAL: Normal range of motion at all joints. No bony deformities or tenderness. No CVA tenderness. UPPER EXTREMITIES: 2+ pulses, warm, well-perfused. No cyanosis. No clubbing. No peripheral edema. LOWER EXTREMITIES: 2+ pulses, warm, well-perfused. No calf tenderness. No peripheral edema. NEUROLOGICAL: Cranial nerves II-XII intact. Normal speech. Normal gait. PSYCHIATRIC: Cooperative. Good eye contact. Appropriate mood and affect. SKIN: Warm, dry, normal turgor, no rashes or lesions noted, normal capillary refill. Laboratory Results - last 24 hr 10/13/19 10/13/19 10/13/19 18:00 18:00 18:00 WBC RBC Hgb Hct MCV MCH MCHC RDW Plt Count MPV Absolute Neuts (auto) Neutrophils % Lymphocytes % Monocytes % Eosinophils % Basophils % Nucleated RBC % PT with INR INR Sodium 142 Potassium 4.0 Chloride 108 H Carbon Dioxide 29 Anion Gap 5 L BUN 17.1 Creatinine 0.6 Est GFR (CKD-EPI)AfAm 142.72 Est GFR (CKD-EPI)NonAf 123.14 Random Glucose 101 Lactic Acid 0.7 Calcium 8.8 Magnesium 2.3 Total Bilirubin 0.3 AST 24 ALT 26 Alkaline Phosphatase 90 Troponin I < 0.02 Total Protein 7.2 Albumin 3.9 Lipase 93 Stool Occult Blood Blood Type Antibody Screen 10/13/19 10/13/19 10/13/19 18:00 18:00 19:15 WBC 7.4 RBC 4.55 Hgb 12.3 Hct 36.7 MCV 80.7 MCH 26.9 MCHC 33.4 RDW 14.9 Plt Count 388 D MPV 8.7 Absolute Neuts (auto) 4.8 Neutrophils % 64.6 Lymphocytes % 23.3 Monocytes % 9.6 Eosinophils % 2.1 Basophils % 0.4 Nucleated RBC % 0 PT with INR INR Sodium Potassium Chloride Carbon Dioxide Anion Gap BUN Creatinine Est GFR (CKD-EPI)AfAm Est GFR (CKD-EPI)NonAf Random Glucose Lactic Acid Calcium Magnesium Total Bilirubin AST ALT Alkaline Phosphatase Troponin I Total Protein Albumin Lipase Stool Occult Blood Positive Blood Type O POSITIVE Antibody Screen Negative 10/13/19 19:45 WBC RBC Hgb Hct MCV MCH MCHC RDW Plt Count MPV Absolute Neuts (auto) Neutrophils % Lymphocytes % Monocytes % Eosinophils % Basophils % Nucleated RBC % PT with INR 12.60 INR 1.07 Sodium Potassium Chloride Carbon Dioxide Anion Gap BUN Creatinine Est GFR (CKD-EPI)AfAm Est GFR (CKD-EPI)NonAf Random Glucose Lactic Acid Calcium Magnesium Total Bilirubin AST ALT Alkaline Phosphatase Troponin I Total Protein Albumin Lipase Stool Occult Blood Blood Type Antibody Screen CT scan of abdomen and pelvis [facility] report reviewed.Postsurgical changes following gastric sleeve procedure in a Madelaine-en-Y gastric bypass. No evidence of small bowel obstruction or mass. Normal appendix is identified. EKG reviewed, sinus rhythm with Q waves in inferior leads. No acute ischemic changes noted. ASSESSMENT/PLAN: 43-year-old male tobacco smoker with acute onset of GI bleed. history of peptic ulcer discovered in 2004 may be a likely etiology especially given history of NSAID use. At this time patient is stable hemodynamically, H&H is stable and he is ok for admission to [facility]. Admit to [facility] Protonix drip IV fluid hydration Avoid aspirin, other NSAIDs Avoid anticoagulants Monitor vital signs every 4 hours Monitor vital signs closely Gastroenterology consultDr. Jamshid Beard n.p.o. #Tobacco abuse crisis counselor on smoking cessation Offer nicotine patch Urine toxicology screen Urine analysis SCDs for DVT prophylaxis Visit type - Emergency Visit Emergency Visit: Yes ED Registration Date: 10/13/19 Care time: The patient presented to the Emergency Department on the above date and was hospitalized for further evaluation of their emergent condition. - New Patient This patient is new to me today: Yes Date on this admission: 10/14/19 - Critical Care Critical Care patient: No
[2019-10-14] MEDS ORDERED: ACETAMINOPHEN 325 MG TABLET (FP) ONE (00:35)
[2019-10-14] MEDS: SODIUM CHLORIDE 1,000 ML IV SCH ×2 (01:24→22:41)
[2019-10-14] MEDS: PANTOPRAZOLE SODIUM 80 MG in SODIUM CHLORIDE 100 ML IVPB SCH ×3 (01:31→23:10)
[2019-10-14 03:18] VITALS: BMI 38.2
[2019-10-14 05:24] LABS: COCAINE, UR NEGATIVE ng/ml (CUTOFF=300); OPIATES, URI NEGATIVE ng/ml (CUTOFF=300); PHENCYCLIDINE,URINE NEGATIVE ng/ml (CUTOFF=25); URINE AMPHETAMINES NEGATIVE ng/ml (CUTOFF=500); URINE BARBITURATES NEGATIVE ng/ml (CUTOFF=200); URINE BENZODIAZEPINES NEGATIVE ng/ml (CUTOFF=200)
[2019-10-14 05:25] LABS: METHADONE, UR POSITIVE ng/ml (CUTOFF=300)
[2019-10-14 11:24] LABS: HEMOGLOBIN 10.4 GM/dL (11.7-16.9); MCH 27.1 pg (25.7-33.7); MCHC 33.5 g/dl (32.0-35.9); MEAN CELL VOLUME 80.8 fl (80-96); MEAN PLT VOLUME 8.4 fl (7.5-11.1); PLATELET COUNT 267 K/MM3 (134-434); RBC 3.84 M/mm3 (4.00-5.60); RDW 14.7 % (11.9-15.9); WHITE BLOOD COUNT 4.6 K/mm3 (4.0-10.0)
--- NOTE | 2019-10-14 11:51 | PN ---
Progress Note, Physician History of Present Illness: Pt seen/ examined chart reviewed comfortable sleepy- arousable denies pain - Current Medication List Current Medications: Active Medications Sodium Chloride (Normal Saline -) 1,000 mls @ 75 mls/hr IV ASDIR QI Last Admin: 10/14/19 01:24 Dose: 75 mls/hr Pantoprazole Sodium 80 mg/ (Sodium Chloride) 100 mls @ 10 mls/hr IVPB Q10H QI Stop: 10/17/19 00:32 Last Admin: 10/14/19 01:31 Dose: 10 mls/hr - Objective Vital Signs: Vital Signs Temperature 97.8 F 10/14/19 06:30 Pulse Rate 53 L 10/14/19 06:30 Respiratory Rate 10/14/19 06:30 Blood Pressure 133/62 10/14/19 06:30 O2 Sat by Pulse Oximetry (%) 97 10/14/19 02:57 Constitutional: Yes: No Distress, Obese Neck: Yes: Supple Cardiovascular: Yes: Regular Rate and Rhythm Respiratory: Yes: CTA Bilaterally Gastrointestinal: Yes: Soft, Abdomen, Obese Edema: No Labs: CBC, BMP 10/14/19 11:07 INR, PTT INR 1.07 (0.83-1.09) 10/13/19 19:45 - ....Imaging Cat Scan: Report Reviewed Problem List - Problems (1) UGIB (upper gastrointestinal bleed) Code(s): K92.2 - GASTROINTESTINAL HEMORRHAGE, UNSPECIFIED (2) Morbid obesity Code(s): E66.01 - MORBID (SEVERE) OBESITY DUE TO EXCESS CALORIES Assessment/Plan stable continue present care GI to follow f/u labs Ambulate scd stockings will follow
[2019-10-14 11:54] LABS: BLOOD UREA NITROGEN 13.8 mg/dL (7-18); CALCIUM 8.4 mg/dL (8.5-10.1); CREATININE 0.7 mg/dL (0.55-1.3)
--- NOTE | 2019-10-14 12:46 | CON.GI ---
Consult Consult Specialty:: GI Referred by:: Edna Johnson Reason for Consultation:: GI bleed - History of Present Illness Chief Complaint: 43 y.o. M, history of gastric bypass, h/o bleeding ulcer in 2003 or 2004 (by his report), admitted with GI bleed. Hct down to 31% today. Denies any vomiting, abdominal pain. Had been taking Motrin recently. - History Source History Provided By: Patient, Medical Record Limitations to Obtaining History: No Limitations - Past Medical History Cardio/Vascular: Yes: HTN Gastrointestinal: Yes: GI Bleed, Peptic Ulcer Disease, Other - Past Surgical History Past Surgical History: Yes: Colonoscopy (Had EGD and colonoscopy in 2003) - Alcohol/Substance Use Hx Alcohol Use: No - Smoking History Smoking history: Current every day smoker Have you smoked in the past 12 months: Yes Aproximately how many cigarettes per day: 10 If you are a former smoker, when did you quit?: 06/03 Home Medications - Allergies Allergies/Adverse Reactions: Allergies Allergy/AdvReac Type Severity Reaction Status Date / Time No Known Allergies Allergy Verified 10/14/19 01:13 - Home Medications Home Medications: Ambulatory Orders Acetaminophen 650 mg PO Q6H PRN 01/09/18 Methadone [Dolophine -] 10 mg PO TID 10/14/19 Physical Exam-GI Vital Signs: Vital Signs Temperature 97.8 F 10/14/19 09:00 Pulse Rate 54 L 10/14/19 09:00 Respiratory Rate 20 10/14/19 09:00 Blood Pressure 98/40 L 10/14/19 09:00 O2 Sat by Pulse Oximetry (%) 95 10/14/19 09:00 Constitutional: Yes: Obese Gastrointestinal Inspection: Yes: WNL ...Auscultate: Yes: Normoactive Bowel Sounds ...Palpate: Yes: Soft ...Rectal Exam: Yes: Deferred (Performed in ER, melena and blood seen.) Labs: CBC, BMP 10/14/19 11:07 10/14/19 11:07 INR, PTT INR 1.07 (0.83-1.09) 10/13/19 19:45 Imaging - Results Cat Scan: Report Reviewed, Image Reviewed Problem List - Problems (1) LGI bleed Code(s): K92.2 - GASTROINTESTINAL HEMORRHAGE, UNSPECIFIED (2) UGIB (upper gastrointestinal bleed) Code(s): K92.2 - GASTROINTESTINAL HEMORRHAGE, UNSPECIFIED Assessment/Plan Unclear at this time whether this was an upper or lower GI bleed. I have proposed EGD and colonoscopy, pt is willing. Will set up for tomorrow.
[2019-10-14] MEDS ORDERED: PEG/ELECTROLYTES (NULYTELY) 4,000 ML BOTTLE PO ONE (14:00)
[2019-10-15] MEDS: SODIUM CHLORIDE 1,000 ML IV SCH ×2 (05:23→17:52)
[2019-10-15] MEDS: PANTOPRAZOLE SODIUM 80 MG in SODIUM CHLORIDE 100 ML IVPB SCH ×2 (06:41→17:48)
[2019-10-15 09:06] LABS: BASO % 0.9 % (0-2.0); EOS % 3.4 % (0-4.5); HEMATOCRIT 31.2 % (35.4-49); HEMOGLOBIN 10.6 GM/dL (11.7-16.9); LYMPH % 24.5 % (8-40); MCH 27.5 pg (25.7-33.7); MEAN CELL VOLUME 80.9 fl (80-96); MEAN PLT VOLUME 8.6 fl (7.5-11.1); MONO % 8.6 % (3.8-10.2); NEUT % 62.6 % (42.8-82.8); PLATELET COUNT 264 K/MM3 (134-434); RBC 3.86 M/mm3 (4.00-5.60); RDW 14.6 % (11.9-15.9)
--- NOTE | 2019-10-15 09:50 | EKG ---
Test Reason : Blood Pressure : / mmHG Vent. Rate : 084 BPM Atrial Rate : 084 BPM P-R Int : 138 ms QRS Dur : 094 ms QT Int : 392 ms P-R-T Axes : 057 020 012 degrees QTc Int : 463 ms NORMAL SINUS RHYTHM POSSIBLE LEFT ATRIAL ENLARGEMENT POSSIBLE INFERIOR INFARCT , AGE UNDETERMINED ABNORMAL ECG WHEN COMPARED WITH ECG OF 03-AUG-2019 03:14, BORDERLINE CRITERIA FOR INFERIOR INFARCT ARE NOW PRESENT Confirmed by Cecily Greco ([id number]) on 10/15/2019 9:50:19 AM Referred By: Confirmed By:Cecily Greco
--- NOTE | 2019-10-15 10:12 | PN ---
Progress Note (short form) - Note Progress Note: Awake/ comfortable GI consult noted/ appreciated Had d/w Dr. Breen also yesterday. For Endo today Vital Signs Temp 98.5 F 10/15/19 07:16 Pulse 67 10/15/19 07:16 Resp 18 10/15/19 07:16 BP 111/63 10/15/19 07:16 Pulse Ox 95 10/14/19 21:00 Intake & Output 10/14/19 10/14/19 10/15/19 11:59 23:59 11:59 Intake Total 340 1000 680 Balance 340 1000 680 Weight 274 lb 7 oz Intake: IV 300 540 680 Normal Saline - 1,000 ml 300 500 600 @ 75 mls/hr IV ASDIR QI Rx#:[id number] Protonix 40 80 IVPB 40 60 Oral 400 Other: Voiding Method Toilet Toilet Toilet # Unmeasured Voids Void 1 2 1 Bowel Movement No No Yes Height 5 ft 11 in Body Mass Index (BMI) 38.2 Weight Measurement Method Standing Scale Active Medications Sodium Chloride (Normal Saline -) 1,000 mls @ 75 mls/hr IV ASDIR QI Last Admin: 10/15/19 05:23 Dose: Not Given Pantoprazole Sodium 80 mg/ (Sodium Chloride) 100 mls @ 10 mls/hr IVPB Q10H [facility] Stop: 10/17/19 00:32 Last Admin: 10/15/19 06:41 Dose: 10 mls/hr Methadone HCl (Dolophine -) 10 mg PO TID [facility] CBC, BMP 10/15/19 07:29 10/14/19 11:07 Physical Exam Constitutional: Yes: No Distress, Obese. Comfortable Neck: Yes: Supple Cardiovascular: Yes: Regular Rate and Rhythm Respiratory: Yes: CTA Bilaterally Gastrointestinal: Yes: Soft, Abdomen, Obese Edema: No - ....Imaging Cat Scan: Report Reviewed Problem List - Problems (1) UGIB (upper gastrointestinal bleed) Code(s): K92.2 - GASTROINTESTINAL HEMORRHAGE, UNSPECIFIED (2) Morbid obesity Code(s): E66.01 - MORBID (SEVERE) OBESITY DUE TO EXCESS CALORIES Assessment/Plan stable continue present care H/H stable For Endo today Ambulate scd stockings will follow Problem List - Problems (1) UGIB (upper gastrointestinal bleed) Code(s): K92.2 - GASTROINTESTINAL HEMORRHAGE, UNSPECIFIED (2) Morbid obesity Code(s): E66.01 - MORBID (SEVERE) OBESITY DUE TO EXCESS CALORIES
[2019-10-15] MEDS: METHADONE HCL 10 MG TABLET PO SCH ×2 (14:00→23:47)
[2019-10-15] MEDS ORDERED: LIDOCAINE HCL/PF 2% SDV 5ML VIAL ONE (18:47)
[2019-10-15] MEDS ORDERED: MIDAZOLAM HCL 2 MG/2 ML SINGLE DOSE VIAL ONE (19:07)
[2019-10-16] MEDS: SODIUM CHLORIDE 1,000 ML IV SCH (02:16)
[2019-10-16 07:07] VITALS: TEMP 98.3
[2019-10-16] MEDS: METHADONE HCL 10 MG TABLET PO SCH ×3 (07:21→13:20)
[2019-10-16] MEDS: PANTOPRAZOLE SODIUM 80 MG in SODIUM CHLORIDE 100 ML IVPB SCH (07:21)
[2019-10-16 09:03] VITALS: BP 126/80; PULSE 52
[2019-10-16] MEDS ORDERED: PANTOPRAZOLE 40 MG TABLET PO SCH (12:00)
--- NOTE | 2019-10-16 12:31 | DS ---
Physical Examination Vital Signs: Vital Signs Temperature 98.3 F 10/16/19 06:00 Pulse Rate 52 L 10/16/19 09:00 Respiratory Rate 18 10/16/19 09:00 Blood Pressure 126/80 10/16/19 09:00 O2 Sat by Pulse Oximetry (%) 94 L 10/16/19 09:00 Constitutional: Yes: No Distress, Calm Cardiovascular: Yes: Regular Rate and Rhythm Respiratory: Yes: CTA Bilaterally Gastrointestinal: Yes: Normal Bowel Sounds, Soft, Abdomen, Obese. No: Tenderness Edema: No Labs: CBC, BMP 10/15/19 07:29 10/14/19 11:07 Discharge Summary Problems reviewed: Yes Reason For Visit: GASTROINTESTINAL HEMORRHAGE,PEPTIC ULCER Current Active Problems LGI bleed (Acute) Morbid obesity (Acute) UGIB (upper gastrointestinal bleed) (Acute) Hospital Course: CHIEF COMPLAINT:blood per rectum PCP: Ahsan HISTORY OF PRESENT ILLNESS: 43 yo Man with a history of morbid obesity, hypertension, chronic back pain for which she takes NSAIDs intermittently, peptic ulcer discovered in 2004 EGD, status post gastric bypass in 2004, undomiciled, multiple hernia repairs, on methadone, 1 pack/day smoker for about 15 years presents with about 2 days of black stools, painless, with about 1 day of bright red blood streaks in his stools. Denied any vomiting however does report some nausea. Decreased appetite. Reports some epigastric pressure as well. ER course was notable for: (1) protonix ivp (2) abdomen/pelvis ct --->negative (3) cxr---> no acute pathology Was seen by GI and underwent EGD and colonoscopy EGD-- 2 ulcers in in gastro-jejunal anastomosis Colonoscopy-- no polyps, normal mucosa Pt better HCT stable tolerating diet follow up with DR Foreman for pathology results stable for dc home Condition: Improved - Instructions Diet, Activity, Other Instructions: please permit patient to buy and carry sealed bottled spring water daily Follow up with DR Foreman in a week for biopsy results Referrals: Chuckie Foreman MD [Primary Care Provider] - Disposition: HOME - Home Medications Comprehensive Discharge Medication List: Ambulatory Orders Acetaminophen 650 mg PO Q6H PRN 01/09/18 Methadone [Dolophine -] 10 mg PO TID 10/14/19 Pantoprazole Sodium [Protonix -] 40 mg PO DAILY #30 tablet.ec 10/16/19
--- NOTE | 2019-10-17 16:45 | PATH ---
Surgical Pathology Report Patient Name: ZULY KNAPP Med. Rec. #: [id number] /Age/Gender: 1975 (Age: 43) / M Account: [id number] Location: [address] [place] [address]/[facility] Taken: 10/15/2019 Received: 10/16/2019 Reported: 10/17/2019 Physicians: MD Edna Woodruff M.D. Specimen(s) Received GASTRIC REMNANT Clinical History Melena Postoperative diagnosis: Anastomotic ulcer Final Diagnosis GASTRIC REMNANT, BIOPSY: GASTRIC BODY MUCOSA WITH MILD CHRONIC GASTRITIS AND ASSOCIATED EROSION. IMMUNOHISTOCHEMICAL STAIN FOR H. PYLORI IS NEGATIVE. Positive and negative controls (internal if applicable) show appropriate results. Electronically Signed Carla Maddox M.D. Gross Description Received in formalin, labeled "gastric remnant biopsy" are 2 hatfield, irregular portions of soft tissue measuring 0.1 and 0.6 cm. in greatest dimension. The specimens are submitted in toto in one cassette. /10/16/2019 [facility]/10/16/2019
== END 2019-10-16 14:04 | disposition home or self-care (01) | DRG 241 ==
LOC: JER 16:28 → JERBED 23:55 → J5S 10-14 02:30
PROVIDERS: ADMIT Internal Medicine; ATTEND Internal Medicine
PROC: 0DB68ZX Excision of Stomach, Via Natural or Artificial Opening Endoscopic, Diagnostic (ICD-10-PCS; 2019-10-15)
PROC: 0DJD8ZZ Inspection of Lower Intestinal Tract, Via Natural or Artificial Opening Endoscopic (ICD-10-PCS; principal; 2019-10-15 15:30)
DX: K28.4 Chronic or unspecified gastrojejunal ulcer with hemorrhage (principal); E66.01 Morbid (severe) obesity due to excess calories; I10 Essential (primary) hypertension; M54.9 Dorsalgia, unspecified; F17.210 Nicotine dependence, cigarettes, uncomplicated; Z98.84 Bariatric surgery status; J98.11 Atelectasis; Z68.38 Body mass index [BMI] 38.0-38.9, adult; K64.8 Other hemorrhoids
CPT/HCPCS: 36415; 71045-TC-FY; 74177-TC; 80048; 80053; 80307; 82272; 82962; 83605; 83690; 83735; 84484; 85025; 85027; 85610; 85730; 86850; 86900; 86901; 88305-TC; 93005; 93010; 99285-25; J0131; J7030; Q9967

== ENCOUNTER 2020-04-30 07:39 | Inpatient (IN) | payer OTHER ==
[2020-04-30] MEDS ORDERED: FAMOTIDINE 20 MG/50 ML IVPB 20 MG/50 ML MG IVPB ONE ×2 (08:20→08:30)
--- NOTE | 2020-04-30 08:28 | PDOC ---
Documentation entered by Sherin Pena SCRIBE, acting as scribe for Radha Wren MD. Radha Wren MD: This documentation has been prepared by the Becky bhatia Xhesika, SCRIBE, under my direction and personally reviewed by me in its entirety. I confirm that the documentation accurately reflects all work, treatment, procedures, and medical decision making performed by me. History of Present Illness - General Chief Complaint: Pain Stated Complaint: PAIN Time Seen by Provider: 04/30/20 07:50 History Source: Patient Exam Limitations: No Limitations - History of Present Illness Initial Comments: 04/30/20 07:50 The patient is a 43y/o M with a PMH of HTN, chronic back pain, gastric bypass (2004; Dr. Gonzalez), multiple hernia repairs, peptic ulcer, on methadone who presents to the ED with generalized squeezing abdominal pain. Pt states his symptoms began yesterday with very mild discomfort, however, this morning when he was getting ready for work, his symptoms where constant and became more severe, prompting his arrival to the ED. Pt reports being constipated which is chronic for him because he is on Methadone. Pt reports he had similar symptoms in the past. States he took aleve prior to the onset of pain for a toothache he has been having for the past week. Also reports he ran out of nexium about a month and a half ago. Pt states he was prescribed Protonix but never filled his prescription. The patient denies chest pain, shortness of breath, headache and dizziness. Denies fever, chills, cough, nausea, vomiting, diarrhea. Denies dysuria, frequency, urgency and hematuria. Allergies: NKDA Past History - Medical History Allergies/Adverse Reactions: Allergies Allergy/AdvReac Type Severity Reaction Status Date / Time No Known Allergies Allergy Verified 04/30/20 07:53 Home Medications: Ambulatory Orders Methadone [Dolophine -] 10 mg PO BID 10/14/19 Pantoprazole Sodium [Protonix -] 40 mg PO DAILY #30 tablet.ec 10/16/19 Ibuprofen [Motrin -] 800 mg PO Q6H #30 tablet 12/01/19 COPD: No HTN: Yes (currently not tx) Liver Disease: No - Surgical History Abdominal Surgery: Yes (HERNIA REPAIR) Gastric Stapling: Yes - Immunization History Td Vaccination: Yes TDAP Vaccination: Yes Immunization Up to Date: Yes - Psycho-Social/Smoking History Smoking History: Current every day smoker Have you smoked in the past 12 months: No Number of Cigarettes Smoked Daily: 10 If you are a former smoker, when did you quit?: 06/03 'Breaking Loose' booklet given: 12/19/15 Review of Systems - Review of Systems Able to Perform ROS?: Yes Comments:: 04/30/20 07:52 GENERAL/CONSTITUTIONAL: No fever or chills. No weakness. HEAD, EYES, EARS, NOSE AND THROAT: No change in vision. No ear pain or discharge. No sore throat. CARDIOVASCULAR: No chest pain or shortness of breath. RESPIRATORY: No cough, wheezing, or hemoptysis. GASTROINTESTINAL: No nausea, vomiting, diarrhea.+ constipation. GENITOURINARY: No dysuria, frequency, or change in urination. MUSCULOSKELETAL: No joint or muscle swelling or pain. No neck or back pain. +generalized abdominal pain SKIN: No rash NEUROLOGIC: No headache, vertigo, loss of consciousness, or change in strength/sensation. ENDOCRINE: No increased thirst. No abnormal weight change. HEMATOLOGIC/LYMPHATIC: No anemia, easy bleeding, or history of blood clots. ALLERGIC/IMMUNOLOGIC: No hives or skin allergy. *Physical Exam - Physical Exam 04/30/20 08:23 GENERAL: Well appearing, in no acute distress HEENT: NCAT, conjunctiva not injected, MMM, EOMI NECK: Normal ROM, supple LUNGS: CTAB. Good air entry. No wheezes, No Rhonchi and no crackles HEART: RRR, + s1 s2, no murmurs, rubs or gallops ABDOMEN: Obese limiting exam, Soft, +diffuse ttp on deep palpation but maximal at epigastric and periumbilical areas. No guarding, no rebound. No masses EXTREMITIES: Warm and well perfused. No LE edema. FROM. No clubbing or cyanosis. No cords, erythema, or tenderness NEUROLOGICAL: Aox3, Speech fluent, face symmetric, tongue/uvula midline. Sensation grossly intact to light touch. Strength intact. No focal deficits. SKIN: Warm, dry, normal turgor, no rashes or lesions noted. Heart Score/ECG Review - ECG Impressions Comment:: 04/30/20 13:03 nsr, rate 61 no ischemic changes ED Treatment Course - LABORATORY CBC & Chemistry Diagram: 05/01/20 05:30 05/01/20 05:30 Medical Decision Making - Medical Decision Making 04/30/20 08:25 44 yo M multiple medical problems p/w abdominal pain without any reports of bloody or dark stools, found to have diffuse ttp on deep palpation with maximal tenderness at epigastrium and periumbilical area, possible gastritis/PUD given report of taking aleve prior to onset of symptoms vs. obstruction vs. acute choley vs. appy vs. diverticulitis. Much lower suspicion for ACS or dissection or AAA. Plan: -labs -cxr -urine -CT a/p -pepcid -maalox -reassess This clinical encounter is taking place during a federal and state health care emergency attributable to the novel Roland Virus pandemic. The [employer] of the Department of Health and Human Services has declared, pursuant to the Public Health Service Act 319F-3 (42 U.S.C. 247d-6d), that a covered persons activities related to medical countermeasures against COVID-19 will be immune from liability under Federal and State law. 04/30/20 15:04 CT results reviewed. Surgery consulted, appreciate recs. Discharge - Discharge Information Problems reviewed: Yes Clinical Impression/Diagnosis: Anastomotic leak of stomach Condition: Guarded - Follow up/Referral - Patient Discharge Instructions - Post Discharge Activity
[2020-04-30 09:24] LABS: BASO % 0.2 % (0-2.0); EOS % 1.6 % (0-4.5); HEMATOCRIT 37.6 % (35.4-49); HEMOGLOBIN 12.6 GM/dL (11.7-16.9); LYMPH % 11.7 % (8-40); MCH 27.1 pg (25.7-33.7); MCHC 33.6 g/dl (32.0-35.9); MEAN CELL VOLUME 80.6 fl (80-96); MEAN PLT VOLUME 9.2 fl (7.5-11.1); MONO % 4.7 % (3.8-10.2); NEUT % 81.8 % (42.8-82.8); PLATELET COUNT 237 K/MM3 (134-434); RBC 4.66 M/mm3 (4.00-5.60); RDW 14.9 % (11.9-15.9); WHITE BLOOD COUNT 7.1 K/mm3 (4.0-10.0)
[2020-04-30 09:33] LABS: INR 0.97 (0.83-1.09); PROTHROMBIN TIME (PATIENT) 11.5 SEC (9.7-13.0)
[2020-04-30 09:47] LABS: ALBUMIN 3.3 g/dl (3.4-5.0); ALK PHOS 76 U/L (45-117); ANION GAP 5 MMOL/L (8-16); BILIRUBIN,TOTAL 0.6 mg/dL (0.2-1); BLOOD UREA NITROGEN 17.6 mg/dL (7-18); CALCIUM 8.5 mg/dL (8.5-10.1); CHLORIDE 107 mmol/L (98-107); CO2 31 mmol/L (21-32); CREATININE 0.5 mg/dL (0.55-1.3); GLUCOSE,RANDOM 94 mg/dL (74-106); LIPASE 50 U/L (73-393); POTASSIUM 3.8 mmol/L (3.5-5.1); SGOT/AST 22 U/L (15-37); SGPT/ALT 29 U/L (13-61); SODIUM 142 mmol/L (136-145); TOT PROT 6.5 g/dl (6.4-8.2)
[2020-04-30] MEDS ORDERED: ACETAMINOPHEN 1000 MG/100 ML VIAL (NON FORMULARY) IVPB ONE (11:26)
[2020-04-30] MEDS ORDERED: ACETAMINOPHEN INJECTION 100 ML IVPB ONE (11:27)
[2020-04-30 12:44] LABS: URINE APPEARANCE CLEAR; URINE BILIRUBIN NEGATIVE (NEGATIVE); URINE COLOR YELLOW; URINE GLUCOSE (UA) NEGATIVE (NEGATIVE); URINE KETONE TRACE (NEGATIVE); URINE LEUK ESTERASE NEGATIVE (NEGATIVE); URINE NITRITE NEGATIVE (NEGATIVE); URINE PROTEIN NEGATIVE (NEGATIVE); URINE UROBILINOGEN 0.2 mg/dL (0.2-1.0)
--- NOTE | 2020-04-30 12:57 | EKG ---
Test Reason : Blood Pressure : / mmHG Vent. Rate : 061 BPM Atrial Rate : 061 BPM P-R Int : 144 ms QRS Dur : 106 ms QT Int : 428 ms P-R-T Axes : 035 025 025 degrees QTc Int : 430 ms NORMAL SINUS RHYTHM NORMAL ECG WHEN COMPARED WITH ECG OF 13-OCT-2019 18:52, BORDERLINE CRITERIA FOR INFERIOR INFARCT ARE NO LONGER PRESENT Confirmed by MD MIRTA, MELY ([id number]) on 04/30/2020 12:57:15 PM Referred By: Confirmed By:MELY KIRBY MD
[2020-04-30] MEDS ORDERED: LACTATED RINGERS SOLUTION 1000 ML INFUS.BAG IV ONE (17:00)
--- NOTE | 2020-04-30 17:00 | PDOC ---
*Physical Exam - Vital Signs Last Vital Signs Temp Pulse Resp BP Pulse Ox 99.0 F 81 16 126/55 L 95 04/30/20 11:48 04/30/20 11:48 04/30/20 07:40 04/30/20 11:48 04/30/20 11:48 - Physical Exam 04/30/20 17:32 Gen: aaox3, uncomfortable heart: +s1s2 reg lungs: cta b/l abd: soft, epigastric ttp, upper abd ttp ext: no c/c/e ED Treatment Course - LABORATORY CBC & Chemistry Diagram: 04/30/20 08:40 04/30/20 08:40 - ADDITIONAL ORDERS Additional order review: Laboratory Results 04/30/20 04/30/20 04/30/20 11:40 08:40 08:40 PT with INR 11.50 INR 0.97 PTT (Actin FS) 28.0 Sodium 142 Potassium 3.8 Chloride 107 Carbon Dioxide 31 Anion Gap 5 L BUN 17.6 Creatinine 0.5 L Est GFR (CKD-EPI)AfAm 152.75 Est GFR (CKD-EPI)NonAf 131.80 Random Glucose 94 Calcium 8.5 Total Bilirubin 0.6 AST 22 ALT 29 Alkaline Phosphatase 76 Troponin I < 0.02 Total Protein 6.5 Albumin 3.3 L Lipase 50 L Urine Color Yellow Urine Appearance Clear Urine pH 6.0 Ur Specific [place] 1.023 Urine Protein Negative Urine Glucose (UA) Negative Urine Ketones Trace H Urine Blood Negative Urine Nitrite Negative Urine Bilirubin Negative Urine Urobilinogen 0.2 Ur Leukocyte Esterase Negative 04/30/20 08:40 RBC 4.66 MCV 80.6 MCHC 33.6 RDW 14.9 MPV 9.2 Neutrophils % 81.8 D Lymphocytes % 11.7 D Monocytes % 4.7 Eosinophils % 1.6 Basophils % 0.2 - Medications Given in the ED: ED Medications Discontinued Medications Generic Name Dose Route Start Last Admin Trade Name Freq PRN Reason Stop Dose Admin Acetaminophen 1,000 mg 04/30/20 11:26 04/30/20 11:30 Ofirmev Injection - IVPB 04/30/20 11:27 1,000 mg ONCE ONE Administration Famotidine/Sodium Chloride 20 mg in 50 mls @ 100 mls/hr 04/30/20 08:20 04/30/20 08:52 Pepcid 20 Mg Premixed Ivpb - IVPB 04/30/20 08:49 100 mls/hr ONCE ONE Administration Medical Decision Making - Medical Decision Making 04/30/20 17:36 a/p: 44yo male with abd pain since yesterday, worse today -pt signed out pending conversation with surgery -pt has gastric bypass sx by Dr. Gonzalez in 2004 -[address] Gonzalez, pending call back -pt states pain controlled at this time -pt updated about ct findings of an anastamotic leak to the surgical site in the stomach 04/30/20 18:[address] Gonzalez, will see patient in consult poss IR drainage of the site npo monitor on tele for tachycardia pain control pt updated and agrees to stay for further eval 04/30/20 19:[address] Gonzalez again, who requests the patient be monitored in the ICU overnight case discussed with ICU team pending eval 04/30/20 20:31 ICU at the bedside to eval the patient 05/01/20 00:18 pt will be admitted to the ICU pt has been seen by Dr. Gonzalez in the ER who recommends OR in the AM, NPO iv zosyn given Discharge - Discharge Information Problems reviewed: Yes Clinical Impression/Diagnosis: Anastomotic leak of stomach Condition: Guarded - Admission Yes - Follow up/Referral - Patient Discharge Instructions - Post Discharge Activity
[2020-04-30] MEDS ORDERED: PIPERACILLIN/TAZOB 3.375 GM 3.375 GM in DEXTROSE 5%-WATER - 50 ML IVPB ONE (19:54)
[2020-04-30] MEDS ORDERED: PIPERACILLIN/TAZOB 3.375 GM 3.375 GM/50 ML BAG IVPB ONE (20:15)
[2020-04-30] MEDS ORDERED: DEXTROSE 5%-WATER - 1,000 ML IV SCH (21:45)
[2020-04-30] MEDS ORDERED: CHLORHEXIDINE GLUCONATE 4% CLEANSER FOR DECOLONIZATION TP SCH (22:00)
--- NOTE | 2020-04-30 22:00 | CONSULT ---
Consultation: REQUESTING PROVIDER: CONSULT REQUEST: We have been asked to medically evaluate this patient for (specify). HPI 44 yo male with history of gastric bypass (done in [address] Webber), multiple hernia repairs, spinal fracture, and on methadone (prior use of heroin and alcohol) presented to ED for abdominal pain that started this morning. Pt stated that for the last two weeks he has been taking advil and tylenol on and off for tooth ache, and this morning he woke up and had sharp , profuse abdominal pain worsening with movement. Pt denies nausea, emesis, diarrhea, or constipation. Pt denies black or bloody stools, fevers, chills or SOB. Pt in ED received CT scan which shows ill defined 10.5 x 6.1 x 13.1 cm air and fluid collection about stomach which is suspicious for an anastomic leak. The collection extends into left upper quadrant. The surgeon Dr. Gonzalez was consulted by ED who prefered ICU monitoring of pt for surgery/ IR in the morning for drainage of leak. Pt in ED was given fluid, tylenol and zofran. Pt currently still only complaining of abdominal pain. Pmh: denies PSH: gastric bypass, multiple hernias, spinal surgery Meds: Methadone Social: 33 pack history; former cocaine, marijuana and heroin user; denies current drug or alcohol use PCP: Dr. Chaya Maki REVIEW OF SYSTEMS: GENERAL/CONSTITUTIONAL: No fever or chills. No weakness. HEAD, EYES, EARS, NOSE AND THROAT: No change in vision. No ear pain or discharge. No sore throat. CARDIOVASCULAR: No chest pain or shortness of breath RESPIRATORY: No cough, wheezing, or hemoptysis. GASTROINTESTINAL: No nausea, vomiting, diarrhea or constipation. Abd pain GENITOURINARY: No dysuria, frequency, or change in urination. MUSCULOSKELETAL: No joint or muscle swelling or pain. No neck or back pain. SKIN: No rash NEUROLOGIC: No headache, vertigo, loss of consciousness, or change in strength/sensation. ENDOCRINE: No increased thirst. No abnormal weight change HEMATOLOGIC/LYMPHATIC: No anemia, easy bleeding, or history of blood clots. ALLERGIC/IMMUNOLOGIC: No hives or skin allergy. PHYSICAL EXAMINATION Vital Signs - 24 hr 04/30/20 04/30/20 04/30/20 07:40 11:48 20:46 Temperature 98.3 F 99.0 F Pulse Rate 67 Pulse Rate [ 81 89 Left] Respiratory 16 18 Rate Blood Pressure 142/69 Blood Pressure 126/55 L 143/64 [Right] O2 Sat by Pulse 100 95 95 Oximetry (%) GENERAL: Awake, alert, and fully oriented, in severe distress. HEAD: Normal with no signs of trauma. EYES: Pupils equal, round and reactive to light, extraocular movements intact, s clera anicteric, conjunctiva clear. No lid lag. EARS, NOSE, THROAT: Ears normal, nares patent, NECK: supple without lymphadenopathy, JVD, or masses. LUNGS: Breath sounds equal, clear to auscultation bilaterally. No wheezes, and no crackles. No accessory muscle use. HEART: Regular rate and rhythm, normal S1 and S2 without murmur, rub or gallop. ABDOMEN: Normal bowel sounds in all four quadrants. Tenderness to palpation in RUQ and RLQ. No tenderness to palpation on percussion MUSCULOSKELETAL: Normal range of motion at all joints. No bony deformities or tenderness. UPPER EXTREMITIES: 2+ pulses, warm, well-perfused. No cyanosis. No clubbing. Cap refill <2 seconds. No peripheral edema. LOWER EXTREMITIES: 2+ pulses, warm, well-perfused. No calf tenderness. No peripheral edema. NEUROLOGICAL: Cranial nerves II-XII grossly intact. Normal speech. PSYCHIATRIC: Cooperative. Good eye contact. Appropriate mood and affect. SKIN: Warm, dry, normal turgor, no rashes or lesions noted. Laboratory Results - last 24 hr 04/30/20 04/30/20 04/30/20 08:40 08:40 08:40 WBC 7.1 RBC 4.66 Hgb 12.6 Hct 37.6 D MCV 80.6 MCH 27.1 MCHC 33.6 RDW 14.9 Plt Count 237 MPV 9.2 Absolute Neuts (auto) 5.8 Neutrophils % 81.8 D Lymphocytes % 11.7 D Monocytes % 4.7 Eosinophils % 1.6 Basophils % 0.2 Nucleated RBC % 0 PT with INR 11.50 INR 0.97 PTT (Actin FS) 28.0 Sodium 142 Potassium 3.8 Chloride 107 Carbon Dioxide 31 Anion Gap 5 L BUN 17.6 Creatinine 0.5 L Est GFR (CKD-EPI)AfAm 152.75 Est GFR (CKD-EPI)NonAf 131.80 Random Glucose 94 Calcium 8.5 Total Bilirubin 0.6 AST 22 ALT 29 Alkaline Phosphatase 76 Troponin I < 0.02 Total Protein 6.5 Albumin 3.3 L Lipase 50 L Urine Color Urine Appearance Urine pH Ur Specific [place] Urine Protein Urine Glucose (UA) Urine Ketones Urine Blood Urine Nitrite Urine Bilirubin Urine Urobilinogen Ur Leukocyte Esterase 04/30/20 11:40 WBC RBC Hgb Hct MCV MCH MCHC RDW Plt Count MPV Absolute Neuts (auto) Neutrophils % Lymphocytes % Monocytes % Eosinophils % Basophils % Nucleated RBC % PT with INR INR PTT (Actin FS) Sodium Potassium Chloride Carbon Dioxide Anion Gap BUN Creatinine Est GFR (CKD-EPI)AfAm Est GFR (CKD-EPI)NonAf Random Glucose Calcium Total Bilirubin AST ALT Alkaline Phosphatase Troponin I Total Protein Albumin Lipase Urine Color Yellow Urine Appearance Clear Urine pH 6.0 Ur Specific [place] 1.023 Urine Protein Negative Urine Glucose (UA) Negative Urine Ketones Trace H Urine Blood Negative Urine Nitrite Negative Urine Bilirubin Negative Urine Urobilinogen 0.2 Ur Leukocyte Esterase Negative Active Medications Generic Name Dose Route Start Last Admin Trade Name Freq PRN Reason Stop Dose Admin Chlorhexidine Gluconate 1 applic 04/30/20 22:00 Hibiclens For Decolonization - TP HS QI Dextrose 1,000 mls @ 83 mls/hr 04/30/20 21:45 D5w - IV ASDIR QI Mupirocin 1 applic 04/30/20 22:00 Bactroban Ointment (For Decolonization) - NS 05/05/20 21:59 BID QI ASSESSMENT/PLAN: Dispo: We will continue to follow the patient. Thank you for this consultative opportunity. Neuro: - Pt has spinal fracture which will be controlled with pain meds Cardiac: - Pt BP stable on no pressors - rn ortho - EKG shows Normal sinus rhythm Resp: - Pt sat at 95% RA - will monitor SpO2 will keep above 90% GI - Pt has CT scan which shows ill defined 10.5 x 6.1 x 13.1 cm air and fluid collection about stomach which is suspicious for an anastomic leak. The collection extends into left upper quadrant. - Surgery was consulted in ED who states IR will follow up in the morning for possible drainage - drainage order was put in the morning - monitor pain and will give pain meds PRN - will also keep pt NPO for procedure tomorrow FEN - will monitor electrolytes Prophylaxis - DVT- SCDs and TEDs no sq heparin due to possible surgery tomorrow Dispo - Will admit pt to unit for closer monitoring Visit type - Emergency Visit Emergency Visit: Yes ED Registration Date: 04/30/20 Care time: The patient presented to the Emergency Department on the above date and was hospitalized for further evaluation of their emergent condition. - New Patient This patient is new to me today: Yes Date on this admission: 05/01/20 - Critical Care Critical Care patient: Yes Total Critical Care Time (in minutes): 36 Critical Care Statement: The care of this patient involved high complexity decision making to prevent further life threatening deterioration of the patient's condition and/or to evaluate & treat vital organ system(s) failure or risk of failure. ATTENDING PHYSICIAN STATEMENT I saw and evaluated the patient. I reviewed the resident's note and discussed the case with the resident. I agree with the resident's findings and plan as documented. SUBJECTIVE: OBJECTIVE: ASSESSMENT AND PLAN:
--- NOTE | 2020-04-30 22:01 | CONSULT ---
Consult - text type - Consultation Consultation Note: Bariatric Consultation 44 y.o. 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 Pt states pain was severe and forced him to come to the ER. Pt with back pain, on Methadone but also Alleve and Motrin. Pt with history of gastric bypass in 2004. Pt denies known ulcer disease, but stated to ER that he has known disease. Pt written for Protonix by PMD but not filled. PMH- HTN, Back Pain Psh- Lap Gastric Bypass, Left inguinal herniorrhaphy, Lap repair of [place]kee[place]'s defect Meds- Methadone All-NKA V/S- T-99.0; P-89; BP-143/64 Gen- sleepy, arouseable, NAD Abd- non-distended soft, mild epigastric pain on palpation CT scan- Perigastric fluid collection Possible anastomotic leak WBC-7.1 H/H-12.6/37.6 I- Abdominal abscess- possibly secondary to perforated anastomotic ulcer from NSAID usage Will assess pt tomorrow - surgical intervention is likely Request ICU admission with close monitering
[2020-04-30] MEDS: MUPIROCIN 2% TOPICAL OINTMENT FOR DECOLONIZATION NS SCH (23:21)
[2020-05-01] MEDS ORDERED: LACTATED RINGERS SOLUTION 1,000 ML/1,000 ML INFUS.BAG IV SCH (01:00)
[2020-05-01 05:57] LABS: BASO % 0.2 % (0-2.0); HEMATOCRIT 38.5 % (35.4-49); HEMOGLOBIN 12.3 GM/dL (11.7-16.9); LYMPH % 3.9 % (8-40); MCH 25.7 pg (25.7-33.7); MEAN CELL VOLUME 80.4 fl (80-96); MEAN PLT VOLUME 9.1 fl (7.5-11.1); MONO % 6.1 % (3.8-10.2); NEUT % 89.8 % (42.8-82.8); PLATELET COUNT 240 K/MM3 (134-434); RBC 4.79 M/mm3 (4.00-5.60); WHITE BLOOD COUNT 16.1 K/mm3 (4.0-10.0)
[2020-05-01 06:00] LABS: INR 1.32 (0.83-1.09); PROTHROMBIN TIME (PATIENT) 15.6 SEC (9.7-13.0)
[2020-05-01 06:03] LABS: ACTIVATED PTT 29.8 SECONDS (25.2-36.5)
[2020-05-01] MEDS: PANTOPRAZOLE 40 MG TABLET PO SCH ×2 (06:11→10:00)
[2020-05-01 06:12] LABS: BILIRUBIN,TOTAL 0.8 mg/dL (0.2-1); BLOOD UREA NITROGEN 17.9 mg/dL (7-18); CALCIUM 8.1 mg/dL (8.5-10.1); CREATININE 0.6 mg/dL (0.55-1.3); MAGNESIUM 1.9 mg/dL (1.8-2.4); PHOSPHOROUS 3.1 mg/dL (2.5-4.9); TOT PROT 6.3 g/dl (6.4-8.2)
[2020-05-01] MEDS ORDERED: POTASSIUM CHLORIDE ORAL LIQUID 20 MEQ/15 ML PO ONE (08:41)
[2020-05-01] MEDS ORDERED: METHADONE HCL 10 MG TABLET PO SCH (10:00)
[2020-05-01] MEDS: MUPIROCIN 2% TOPICAL OINTMENT FOR DECOLONIZATION NS SCH ×2 (10:01→21:57)
--- NOTE | 2020-05-01 11:38 | HP ---
Admitting History and Physical - Primary Care Physician PCP: Chuckie Foreman - Admission Chief Complaint: abd pain History of Present Illness: History of Present Illness Initial Comments: 04/30/20 07:50 The patient is a 43y/o M with a PMH of HTN, chronic back pain, gastric bypass (2004; Dr. Gonzalez), multiple hernia repairs, peptic ulcer, on methadone who presents to the ED with generalized squeezing abdominal pain. Pt states his symptoms began yesterday with very mild discomfort, however, this morning when he was getting ready for work, his symptoms where constant and became more severe, prompting his arrival to the ED. Pt reports being constipated which is chronic for him because he is on Methadone. Pt reports he had similar symptoms in the past. States he took aleve prior to the onset of pain for a toothache he has been having for the past week. Also reports he ran out of nexium about a month and a half ago. Pt states he was prescribed Protonix but never filled his prescription. The patient denies chest pain, shortness of breath, headache and dizziness. Denies fever, chills, cough, nausea, vomiting, diarrhea. Denies dysuria, frequency, urgency and hematuria. Pt examined in ICU Has abdominal pain CT abd-- perforated gastric anastomosis Pt is kept NPO On antibiotics being prepped for surgery History Source: Patient Limitations to Obtaining History: No Limitations - Past Medical History Cardiovascular: Yes: HTN Gastrointestinal: Yes: GI Bleed, Peptic Ulcer Disease, Other - Past Surgical History Past Surgical History: Yes: Colonoscopy (Had EGD and colonoscopy in 2003) - Smoking History Smoking history: Current every day smoker Have you smoked in the past 12 months: No Aproximately how many cigarettes per day: 10 If you are a former smoker, when did you quit?: 06/03 - Alcohol/Substance Use Hx Alcohol Use: No Home Medications - Allergies Allergies/Adverse Reactions: Allergies Allergy/AdvReac Type Severity Reaction Status Date / Time No Known Allergies Allergy Verified 04/30/20 07:53 - Home Medications Home Medications: Ambulatory Orders Methadone [Dolophine -] 10 mg PO BID 10/14/19 Pantoprazole Sodium [Protonix -] 40 mg PO DAILY #30 tablet.ec 10/16/19 Ibuprofen [Motrin -] 800 mg PO Q6H #30 tablet 12/01/19 Review of Systems - Review of Systems Constitutional: denies: Chills, Fever Gastrointestinal: reports: Abdominal Pain Physical Examination Vital Signs: Vital Signs Temperature 100 F H 05/01/20 08:30 Pulse Rate 92 H 05/01/20 08:30 Respiratory Rate 22 H 05/01/20 09:00 Blood Pressure 130/70 05/01/20 08:00 O2 Sat by Pulse Oximetry (%) 92 L 05/01/20 09:00 Constitutional: Yes: Moderate Distress Cardiovascular: Yes: Regular Rate and Rhythm Respiratory: Yes: Diminished Gastrointestinal: Yes: Normal Bowel Sounds, Soft, Abdomen, Obese, Tenderness, Epigastrium Edema: Yes Psychiatric: Yes: Alert, Oriented Labs: CBC, BMP 05/01/20 05:30 05/01/20 05:30 Imaging - Results Chest X-ray: Image Reviewed Cat Scan: Report Reviewed EKG: Image Reviewed Problem List - Problems (1) Anastomotic leak of stomach Code(s): K91.89 - OTH POSTPROCEDURAL COMPLICATIONS AND DISORDERS OF DGSTV SYS (2) Abdominal pain Code(s): R10.9 - UNSPECIFIED ABDOMINAL PAIN (3) Morbid obesity Code(s): E66.01 - MORBID (SEVERE) OBESITY DUE TO EXCESS CALORIES Assessment/Plan PLAN Keep NPO IV Fluids IV antibiotics Pain control on IV Protonix Surgical eval noted DVT prophylaxis
[2020-05-01] MEDS ORDERED: MIDAZOLAM HCL 2 MG/2 ML SINGLE DOSE VIAL ONE (13:36)
[2020-05-01] MEDS ORDERED: ROCURONIUM BROMIDE 50 MG/5 ML SYRINGE ONE ×2 (13:36→14:48)
[2020-05-01] MEDS ORDERED: CEFTRIAXONE 1 GM in DEXTROSE 5%-WATER - 50 ML IVPB ONE (13:56)
[2020-05-01] MEDS ORDERED: ceFAZolin SODIUM 1 GM VIAL IVPB ONE (14:00)
--- NOTE | 2020-05-01 14:06 | PN ---
Physical Exam: SUBJECTIVE: Patient seen and examined Pt today just complaining of abdominal pain at bedside consistent with pt hospital course. Pt will be scheduled for surgery today and return to ICU for further monitoring. Pt denies shortness of breath, emesis, chest pain, diarrhea, bleeding in bowels or black stools. OBJECTIVE: Vital Signs Period Temp Pulse Resp BP Sys/Hubbard Pulse Ox Last 24 Hr 98.9 F-100 F 89-99 18-31 125-143/64-73 90-95 GENERAL: Awake, alert, and fully oriented, in moderate distress. HEAD: Normal with no signs of trauma. EYES: Pupils equal, round and reactive to light, extraocular movements intact, sclera anicteric, conjunctiva clear. No lid lag. EARS, NOSE, THROAT: Ears normal, nares patent, NECK: supple without lymphadenopathy, JVD, or masses. LUNGS: Breath sounds equal, clear to auscultation bilaterally. No wheezes, and no crackles. No accessory muscle use. HEART: Regular rate and rhythm, normal S1 and S2 without murmur, rub or gallop. ABDOMEN: Normal bowel sounds in all four quadrants. Tenderness to palpation in RUQ and RLQ. No tenderness to palpation on percussion MUSCULOSKELETAL: Normal range of motion at all joints. No bony deformities or tenderness. UPPER EXTREMITIES: 2+ pulses, warm, well-perfused. No cyanosis. No clubbing. Cap refill <2 seconds. No peripheral edema. LOWER EXTREMITIES: 2+ pulses, warm, well-perfused. No calf tenderness. No peripheral edema. NEUROLOGICAL: Cranial nerves II-XII grossly intact. Normal speech. PSYCHIATRIC: Cooperative. Good eye contact. Appropriate mood and affect. SKIN: Warm, dry, normal turgor, no rashes or lesions noted. Laboratory Results - last 24 hr 05/01/20 05/01/20 05/01/20 05:30 05:30 05:30 WBC 16.1 H RBC 4.79 Hgb 12.3 Hct 38.5 MCV 80.4 MCH 25.7 MCHC 32.0 RDW 15.0 Plt Count 240 MPV 9.1 Absolute Neuts (auto) 14.5 H Neutrophils % 89.8 H Lymphocytes % 3.9 L D Monocytes % 6.1 Eosinophils % 0.0 D Basophils % 0.2 Nucleated RBC % 0 PT with INR 15.60 H INR 1.32 H PTT (Actin FS) 29.8 Sodium 141 Potassium 3.0 L Chloride 107 Carbon Dioxide 27 Anion Gap 7 L BUN 17.9 Creatinine 0.6 Est GFR (CKD-EPI)AfAm 141.72 Est GFR (CKD-EPI)NonAf 122.28 POC Glucometer Random Glucose 113 H Calcium 8.1 L Phosphorus 3.1 Magnesium 1.9 Total Bilirubin 0.8 AST 16 ALT 23 Alkaline Phosphatase 61 Total Protein 6.3 L Albumin 3.0 L Blood Type Antibody Screen 05/01/20 05/01/20 05:30 11:26 WBC RBC Hgb Hct MCV MCH MCHC RDW Plt Count MPV Absolute Neuts (auto) Neutrophils % Lymphocytes % Monocytes % Eosinophils % Basophils % Nucleated RBC % PT with INR INR PTT (Actin FS) Sodium Potassium Chloride Carbon Dioxide Anion Gap BUN Creatinine Est GFR (CKD-EPI)AfAm Est GFR (CKD-EPI)NonAf POC Glucometer 126 Random Glucose Calcium Phosphorus Magnesium Total Bilirubin AST ALT Alkaline Phosphatase Total Protein Albumin Blood Type O POSITIVE Antibody Screen Negative Active Medications Generic Name Dose Route Start Last Admin Trade Name Brianq PRN Reason Stop Dose Admin Chlorhexidine Gluconate 1 applic 04/30/20 22:00 04/30/20 23:21 Hibiclens For Decolonization - TP 1 applic HS QI Administration Lactated Ringer's 1,000 ml in 1,000 mls @ 83 mls/hr 05/01/20 01:00 05/01/20 06:11 Lactated Ringers Solution IV 83 mls/hr ASDIR QI Administration Ceftriaxone Sodium 1 gm/ 50 mls @ 100 mls/hr 05/01/20 13:56 Dextrose IVPB 05/01/20 14:25 ONCE ONE Metronidazole 500 mg in 100 mls @ 100 mls/hr 05/01/20 18:00 Flagyl 500mg Premixed Ivpb - IVPB Q8H-IV QI Methadone HCl 10 mg 05/01/20 10:00 05/01/20 10:00 Dolophine - PO 10 mg BID QI Administration Mupirocin 1 applic 04/30/20 23:00 05/01/20 10:01 Bactroban Ointment (For Decolonization) - NS 05/05/20 22:59 1 applic BID QI Administration Pantoprazole Sodium 40 mg 05/01/20 07:00 05/01/20 10:00 Protonix - PO 40 mg ACBK QI Administration ASSESSMENT/PLAN: Neuro: - Pt has spinal fracture which will be controlled with pain meds Cardiac: - Pt BP stable on no pressors - media monitor - EKG shows Normal sinus rhythm Resp: - Pt sat at 93% on 2L NC - will monitor SpO2 will keep above 90% GI - Pt has CT scan which shows ill defined 10.5 x 6.1 x 13.1 cm air and fluid collection about stomach which is suspicious for an anastomic leak. The collection extends into left upper quadrant. - Surgery consultation appreciated -Surgery scheduled for today ID - Pt wbc increased and mild temperature - ID consult appreciated - started on zosyn and flaggyl FEN - will monitor electrolytes Prophylaxis - DVT- SCDs and TEDs no sq heparin due to possible surgery tomorrow - GERD- given protonix Dispo - Will cont monitoring post surgery Visit type - Emergency Visit Emergency Visit: Yes ED Registration Date: 04/30/20 Care time: The patient presented to the Emergency Department on the above date and was hospitalized for further evaluation of their emergent condition. - New Patient This patient is new to me today: No - Critical Care Critical Care patient: Yes Total Critical Care Time (in minutes): 36 Critical Care Statement: The care of this patient involved high complexity decision making to prevent further life threatening deterioration of the patient's condition and/or to evaluate & treat vital organ system(s) failure or risk of failure. ATTENDING PHYSICIAN STATEMENT I saw and evaluated the patient. I reviewed the resident's note and discussed the case with the resident. I agree with the resident's findings and plan as documented. SUBJECTIVE: OBJECTIVE: ASSESSMENT AND PLAN:
--- NOTE | 2020-05-01 15:07 | PN ---
Teaching Attending Note Name of Resident: Roel Narvaez ATTENDING PHYSICIAN STATEMENT I saw and evaluated the patient. I reviewed the resident's note and discussed the case with the resident. I agree with the resident's findings and plan as documented. SUBJECTIVE: Patient seen and examined in the ICU. Awake and alert. Still with generalized abdominal discomfort. No CP or SOB. No pressors. For OR today. Intake & Output 04/28/20 04/29/20 04/30/20 05/01/20 23:59 23:59 23:59 23:59 Output Total 0 0 Balance 0 0 Weight 260 lb 2.327 oz 260 lb 2.327 oz Last Vital Signs Temp Pulse Resp BP Pulse Ox 99 F 98 H 22 H 128/54 L 94 L 05/01/20 11:00 05/01/20 13:00 05/01/20 13:00 05/01/20 13:00 05/01/20 13:00 Active Medications Chlorhexidine Gluconate (Hibiclens For Decolonization -) 1 applic TP HS [facility] Last Admin: 04/30/20 23:21 Dose: 1 applic Documented by: Lactated Ringer's (Lactated Ringers Solution) 1,000 ml in 1,000 mls @ 83 mls/hr IV ASDIR [facility] Last Admin: 05/01/20 06:11 Dose: 83 mls/hr Documented by: Metronidazole (Flagyl 500mg Premixed Ivpb -) 500 mg in 100 mls @ 100 mls/hr IVPB Q8H-IV QI Methadone HCl (Dolophine -) 10 mg PO BID [facility] Last Admin: 05/01/20 10:00 Dose: 10 mg Documented by: Mupirocin (Bactroban Ointment (For Decolonization) -) 1 applic NS BID [facility] Stop: 05/05/20 22:59 Last Admin: 05/01/20 10:01 Dose: 1 applic Documented by: Pantoprazole Sodium (Protonix -) 40 mg PO ACBK [facility] Last Admin: 05/01/20 10:00 Dose: 40 mg Documented by: GENERAL: Awake, alert, and fully oriented, NAD HEAD: Normal with no signs of trauma. EYES: sclera anicteric, conjunctiva clear. EARS, NOSE, THROAT: Ears normal, nares patent, NECK: supple without lymphadenopathy, JVD, or masses. LUNGS: Breath sounds equal, clear to auscultation bilaterally. No wheezes, and no crackles. No accessory muscle use. HEART: Regular rate and rhythm, normal S1 and S2 without murmur, rub or gallop. ABDOMEN: Normal bowel sounds in all four quadrants. Tenderness to palpation in RUQ and RLQ. MUSCULOSKELETAL: Normal range of motion at all joints. No bony deformities or tenderness. UPPER EXTREMITIES: 2+ pulses, warm, well-perfused. No cyanosis. No clubbing. Cap refill <2 seconds. No peripheral edema. LOWER EXTREMITIES: 2+ pulses, warm, well-perfused. No calf tenderness. No peripheral edema. NEUROLOGICAL: Non-focal PSYCHIATRIC: Cooperative. Good eye contact. Appropriate mood and affect. SKIN: Warm, dry, normal turgor, no rashes or lesions noted. Laboratory Results - last 24 hr 05/01/20 05/01/20 05/01/20 05:30 05:30 05:30 WBC 16.1 H RBC 4.79 Hgb 12.3 Hct 38.5 MCV 80.4 MCH 25.7 MCHC 32.0 RDW 15.0 Plt Count 240 MPV 9.1 Absolute Neuts (auto) 14.5 H Neutrophils % 89.8 H Lymphocytes % 3.9 L D Monocytes % 6.1 Eosinophils % 0.0 D Basophils % 0.2 Nucleated RBC % 0 PT with INR 15.60 H INR 1.32 H PTT (Actin FS) 29.8 Sodium 141 Potassium 3.0 L Chloride 107 Carbon Dioxide 27 Anion Gap 7 L BUN 17.9 Creatinine 0.6 Est GFR (CKD-EPI)AfAm 141.72 Est GFR (CKD-EPI)NonAf 122.28 POC Glucometer Random Glucose 113 H Calcium 8.1 L Phosphorus 3.1 Magnesium 1.9 Total Bilirubin 0.8 AST 16 ALT 23 Alkaline Phosphatase 61 Total Protein 6.3 L Albumin 3.0 L Blood Type Antibody Screen 05/01/20 05/01/20 05:30 11:26 WBC RBC Hgb Hct MCV MCH MCHC RDW Plt Count MPV Absolute Neuts (auto) Neutrophils % Lymphocytes % Monocytes % Eosinophils % Basophils % Nucleated RBC % PT with INR INR PTT (Actin FS) Sodium Potassium Chloride Carbon Dioxide Anion Gap BUN Creatinine Est GFR (CKD-EPI)AfAm Est GFR (CKD-EPI)NonAf POC Glucometer 126 Random Glucose Calcium Phosphorus Magnesium Total Bilirubin AST ALT Alkaline Phosphatase Total Protein Albumin Blood Type O POSITIVE Antibody Screen Negative ASSESSMENT/PLAN: Sepsis due to Intra-abdominal abscess R/O anastamosis leak due to NSAID abuse For OR today IVF ABX per ID Supplemental O2 as needed VTE prophylaxis Dr Lynch
[2020-05-01] MEDS ORDERED: METHYLENE BLUE 50 MG/10 ML AMPUL ONE (16:06)
[2020-05-01] MEDS ORDERED: HYDROmorphone HCl 2 MG/ML VIAL ONE (16:54)
[2020-05-01] MEDS ORDERED: NEOSTIGMINE METHYLSULFATE 0.5 MG/ML - 10 ML MDV ONE (17:05)
[2020-05-01] MEDS ORDERED: PIPERACILLIN/TAZOB 4.5 GM 4.5 GM in DEXTROSE 5%-WATER 100 ML IVPB SCH (17:21)
--- NOTE | 2020-05-01 17:38 | OP ---
Operative Note - Note: Operative Date: 05/01/20 Pre-Operative Diagnosis: Perforated Gastro-jejunal anastomotic ulcer. Abdominal abscess Operation: Laparoscopic closure of perforated Gastro-jejunal anastomotic ulcer. Drainage of abdominal abscess. Laparoscopic Lysis of adhesions Findings: Large abscess found in lesser sac posterior to stomach. Small bowel contents noted. Gastro-jejunal anastomotic ulcer located on posterior jejunal sida 1 cm from anastomosis Abdominal adhesions noted between omentum and anterior stomach wall. Post-Operative Diagnosis: Same as Pre-op (Abdominal Adhesions) Surgeon: Spenser Gonzalez Docket Clerk: Lai Brand Anesthesia: General Estimated Blood Loss (mls): 100 Drains & Tubes with Location: Right upper quadrant J-P drain located posterior to gastrojejunal ulcer Operative Report Dictated: Yes
[2020-05-01] MEDS: LACTATED RINGERS SOLUTION 1,000 ML/1,000 ML INFUS.BAG IV SCH ×2 (18:00)
[2020-05-01 18:09] LABS: BASO % 0.3 % (0-2.0); LYMPH % 2.5 % (8-40); MCH 26.5 pg (25.7-33.7); MCHC 32.4 g/dl (32.0-35.9); MEAN CELL VOLUME 81.6 fl (80-96); MEAN PLT VOLUME 9.1 fl (7.5-11.1); MONO % 5.2 % (3.8-10.2); PLATELET COUNT 211 K/MM3 (134-434); RBC 4.54 M/mm3 (4.00-5.60); RDW 15.3 % (11.9-15.9); WHITE BLOOD COUNT 14.1 K/mm3 (4.0-10.0)
[2020-05-01] MEDS ORDERED: PIPERACILLIN/TAZOBACTAM 4.5 GM VIAL IVPB ONE (18:20)
[2020-05-01] MEDS ORDERED: DEXTROSE 5%-WATER 100 ML IVPB ONE (18:21)
[2020-05-01 18:55] LABS: ALBUMIN 2.7 g/dl (3.4-5.0); BILIRUBIN,TOTAL 0.6 mg/dL (0.2-1); BLOOD UREA NITROGEN 22.3 mg/dL (7-18); MAGNESIUM 1.8 mg/dL (1.8-2.4); PHOSPHOROUS 3.3 mg/dL (2.5-4.9); POTASSIUM 3.3 mmol/L (3.5-5.1); TOT PROT 5.9 g/dl (6.4-8.2)
--- NOTE | 2020-05-01 19:29 | SURG ---
Surgery Poiser Balance Note Poiser Balance: Lai Brand PA-C Date of Service: 05/01/20 Diagnosis: Perforated Gastro-jejunal anastomotic ulcer. Abdominal abscess Procedure: Laparoscopic lysis of adhesions, drainage of abdominal abscess, closure of perforated gastro-jejunal anastomotic ulcer. I was present for the entirety of the operative procedure. For further detail, please refer to operative report. Visit type - Case Type Case Type: ED Admission - Emergency Emergency Visit: Yes ED Registration Date: 04/30/20 Care time: The patient presented to the Emergency Department on the above date and was hospitalized for further evaluation of their emergent condition. - New patient This patient is new to me today: Yes Date on this admission: 05/01/20
[2020-05-01] MEDS: PIPERACILLIN/TAZOB 4.5 GM 4.5 GM in DEXTROSE 5%-WATER 100 ML IVPB SCH (19:32)
[2020-05-01] MEDS: KCL 10 MEQ IVPB 10 MEQ/100 ML INFUS.BAG IVPB SCH ×3 (20:19→22:21)
[2020-05-01 20:27] LABS: MACROCYTOSIS 0; PLATELET ESTIMATE NORMAL
--- NOTE | 2020-05-01 20:32 | OP ---
DATE OF OPERATION: 05/01/2020 PREOPERATIVE DIAGNOSIS: 1. Perforated gastrojejunal anastomotic ulcer. 2. Abdominal abscess. POSTOPERATIVE DIAGNOSIS: 1. Perforated gastrojejunal anastomotic ulcer. 2. Abdominal abscess. 3. Abdominal adhesions. PROCEDURE PERFORMED: 1. Laparoscopic closure of perforated gastrojejunal anastomotic ulcer. 2. Laparoscopic drainage of abdominal abscess. 3. Laparoscopic lysis of adhesions. OPERATING SURGEON: Spenser Gonzalez MD. RN ENT: CARLOS Brink. ANESTHESIA: General. OPERATIVE PROCEDURE: Patient was brought to the operating room, placed on the OR table in a supine position. All precautions were taken initially including padding for the back and the feet, and Venodyne boots were placed on both lower extremities. At that point, the abdomen was prepped and draped in the usual manner. A Veress needle was placed in the left upper quadrant, and a pneumoperitoneum was established. Under direct vision with the laparoscopic camera, a number 5 bladeless trocar was placed in the left upper quadrant, through the trocar laparoscopic camera was placed. Under direct vision, a number 15 bladeless trocar was placed in the midline in the supraumbilical position followed by a number 5 bladeless trocar in the right upper quadrant, and number 5 bladeless trocar below the left costal margin. A Mary liver retractor was then placed in the epigastrium to retract the left lobe of the liver. The patient was then placed in 20-degree reverse Trendelenburg position by anesthesia. Evaluation of the distal stomach that was transected during the gastric bypass and the small bowel was noted, and found to have no signs of any abscess cavity, which was reported on the CAT scan. The CAT scan reported a perigastric abscess anterior to the gastrojejunostomy and extending all the way up along the greater curvature of the stomach pouch. However, there were some adhesions between the omentum and the small bowel and also between the omentum and the stomach, and these were lysed with the LigaSure. Purpose of lysing them was to get better exposure to the stomach and small bowel contents. Further evaluation showed no evidence of abscess or even any signs of infection in this area. The distal stomach however along the greater curve, extending especially toward the antrum and the pylorus did have some fibrinous exudate significant for possible abscess or infectious process. As the fiscal assistant surgeon lifted the wall of the distal stomach up toward the anterior abdominal wall, the fiscal assistant surgeon retracted the gastrocolic ligament inferiorly. Blunt dissection was attempted to open up the gastrocolic ligament and possibly enter the lesser sac for further exploration. This was partially successful; however, for complete exposure to lesser sac, the LigaSure device was used to dissect the gastrocolic ligament off the greater curve of the stomach. This continued in a superior and vertical direction partially the way on the greater curvature, with care being taken to be farther away off the stomach, not to cause injury to the stomach wall, but also to be careful of the short gastric vessels that were dissected. Once this was opened, the lesser sac was exposed. There was noted to be a large amount of fluid contents, most of which appeared to be small bowel . This was suctioned and irrigated until clear. Attention was now directed to the gastrojejunal anastomosis on the posterior wall. Here, there were no obvious signs of ulceration, although there was evidence of fibrinous tissue in this area. Again, irrigation was placed, and the entire drainage cavity was suctioned until clear. Anesthesia then placed methylene blue 20 mL diluted by 50% into the NG tube, and this showed a ornelas of methylene blue on the posterior wall of the gastrojejunal anastomosis. It was here that the perforated ulcer was suspected, and further evaluation showed an approximately 0.75 cm ulcer on the posterior wall, probably 1 cm distal to the gastrojejunal anastomosis on the small bowel side posteriorly. A suture was placed with the laparoscopic suture. 2-0 was used to attempt to close this ulcer, and although the tissue was friable, the suture did hold. Further attempts to get control of the ulcer included placing omental packs in this area, and then Haile-Howard drain was placed in this area for further drainage and brought out the right upper quadrant. At that point, the tissues were placed back in place, and the Haile-Howard drain and the omental pack appeared to be in place. At this point, the number 12 trocar site was closed with the endo closure device to prevent internal hernia and to prevent bleeding. Under direct vision, all trocars were removed, and the pneumoperitoneum released. All trocar sites received 0.25% Marcaine and all were closed with 4-0 Biosyn in a subcuticular fashion on the skin. The number 12 trocar was first closed with 3-0 Vicryl in the subcutaneous tissue, followed by 4-0 Biosyn in a subcuticular fashion. Dressings were applied, the patient awoke from anesthesia and transferred out of the operating room into the recovery room in stable condition. Anesthesia in this case was general, surgeon was Dr. Gonzalez, fiscal assistant was Lai Brand, physician fiscal assistant, and expected blood loss was 100 mL. Patient transferred to the ICU in guarded condition. Arvind [id number]
[2020-05-01] MEDS: METHADONE HCL 10 MG TABLET PO SCH (21:58)
[2020-05-01] MEDS ORDERED: MUPIROCIN 2% TOPICAL OINTMENT FOR DECOLONIZATION NS SCH ×2 (22:00)
[2020-05-01] MEDS ORDERED: CHLORHEXIDINE GLUCONATE 4% CLEANSER FOR DECOLONIZATION TP SCH (22:00)
[2020-05-02] MEDS ORDERED: DEXTROSE 5%-WATER 100 ML IVPB ONE ×3 (00:14→17:45)
[2020-05-02] MEDS ORDERED: PIPERACILLIN/TAZOBACTAM 4.5 GM VIAL IVPB ONE ×3 (00:14→17:45)
[2020-05-02] MEDS: PIPERACILLIN/TAZOB 4.5 GM 4.5 GM in DEXTROSE 5%-WATER 100 ML IVPB SCH ×2 (02:33→09:31)
[2020-05-02 06:31] LABS: BASO % 0.1 % (0-2.0); HEMATOCRIT 34.3 % (35.4-49); HEMOGLOBIN 11.1 GM/dL (11.7-16.9); LYMPH % 4.9 % (8-40); MCH 26.3 pg (25.7-33.7); MCHC 32.5 g/dl (32.0-35.9); MEAN CELL VOLUME 80.8 fl (80-96); MEAN PLT VOLUME 9.3 fl (7.5-11.1); MONO % 7.5 % (3.8-10.2); NEUT % 87.5 % (42.8-82.8); PLATELET COUNT 210 K/MM3 (134-434); RBC 4.24 M/mm3 (4.00-5.60); RDW 15.3 % (11.9-15.9); WHITE BLOOD COUNT 13.2 K/mm3 (4.0-10.0)
[2020-05-02 06:49] LABS: ALBUMIN 2.5 g/dl (3.4-5.0); BILIRUBIN,TOTAL 0.5 mg/dL (0.2-1); BLOOD UREA NITROGEN 20.2 mg/dL (7-18); CALCIUM 7.8 mg/dL (8.5-10.1); CREATININE 0.6 mg/dL (0.55-1.3); MAGNESIUM 2.2 mg/dL (1.8-2.4); PHOSPHOROUS 2.6 mg/dL (2.5-4.9); POTASSIUM 3.8 mmol/L (3.5-5.1); TOT PROT 5.7 g/dl (6.4-8.2)
[2020-05-02] MEDS: MUPIROCIN 2% TOPICAL OINTMENT FOR DECOLONIZATION NS SCH ×2 (09:31→21:40)
[2020-05-02] MEDS: METHADONE HCL 10 MG TABLET PO SCH ×2 (09:31→21:40)
[2020-05-02] MEDS ORDERED: PANTOPRAZOLE SODIUM 40 MG VIAL IVPUSH SCH (10:00)
[2020-05-02] MEDS ORDERED: ENOXAPARIN NA (PORCINE) 40 MG/0.4 ML DISP.SYRIN SQ SCH (10:00)
--- NOTE | 2020-05-02 10:15 | PN ---
Progress Note (short form) - Note Progress Note: ID consult dictated imp/reccd 44 yo man admitted s/p gastric bypass 15 years ago, admitted with acute abdominal pain- found to have perforated gastric anastomasis s/p surgery last night-laporascopic closure of perforated gastrojejunal anastomosis, gastrojejunal ulcer, drainage of abscess he is doing well postop day #1 wants NGT out no cultures sent- procedure was laparoscopic continue zosyn as ordered covid PCR positive- no signs covid pneumonia maintain contact/ airborne isolation Problem List - Problems (1) Intra-abdominal abscess Code(s): K65.1 - PERITONEAL ABSCESS (2) Anastomotic leak of stomach Code(s): K91.89 - OTH POSTPROCEDURAL COMPLICATIONS AND DISORDERS OF DGSTV SYS (3) COVID-19 virus detected Code(s): U07.1 - COVID POSITIVE
--- NOTE | 2020-05-02 13:05 | PN ---
Progress Note, Physician History of Present Illness: Pt seen in icu Chart reviewed Case d/w ICu team/ Resident and RN POD #1 s/p Laparoscopic closure of perforated Gastro-jejunal anastomotic ulcer. covid + Pt not examined by me today due to preservation of PPE - as Pt just seen by icu team. Awake/ Comfortable - Current Medication List Current Medications: Active Medications Enoxaparin Sodium (Lovenox -) 40 mg SQ DAILY [facility] Last Admin: 05/02/20 09:31 Dose: 40 mg Documented by: Lactated Ringer's (Lactated Ringers Solution) 1,000 ml in 1,000 mls @ 83 mls/hr IV ASDIR QI Last Admin: 05/01/20 18:00 Dose: 83 mls Documented by: Piperacillin Sod/Tazobactam (Sod 4.5 gm/ Dextrose) 100 mls @ 200 mls/hr IVPB Q8H-IV QI; Protocol Methadone HCl (Dolophine -) 10 mg PO BID [facility] Last Admin: 05/02/20 09:31 Dose: Not Given Documented by: Mupirocin (Bactroban Ointment (For Decolonization) -) 1 applic NS BID [facility] Stop: 05/06/20 21:59 Last Admin: 05/02/20 09:31 Dose: Not Given Documented by: Pantoprazole Sodium (Protonix Iv) 40 mg IVPUSH DAILY [facility] Last Admin: 05/02/20 09:31 Dose: 40 mg Documented by: - Objective Vital Signs: Vital Signs Temperature 98 F 05/02/20 07:00 Pulse Rate 78 05/02/20 12:00 Respiratory Rate 20 05/02/20 12:00 Blood Pressure 136/74 05/02/20 12:00 O2 Sat by Pulse Oximetry (%) 96 05/02/20 12:00 Labs: CBC, BMP 05/02/20 05:25 05/02/20 05:25 INR, PTT INR 1.32 (0.83-1.09) H 05/01/20 05:30 Problem List - Problems (1) Anastomotic leak of stomach Code(s): K91.89 - OTH POSTPROCEDURAL COMPLICATIONS AND DISORDERS OF DGSTV SYS (2) COVID-19 virus detected Code(s): U07.1 - COVID POSITIVE (3) Intra-abdominal abscess Code(s): K65.1 - PERITONEAL ABSCESS (4) Morbid obesity Code(s): E66.01 - MORBID (SEVERE) OBESITY DUE TO EXCESS CALORIES Assessment/Plan Discussed Agree with current management abx covid precautions in place will follow
--- NOTE | 2020-05-02 13:21 | PN ---
Progress Note (short form) - Note Progress Note: 44 yo male with history of gastric bypass (done in [address] 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 Pt in ED received CT scan which shows ill defined 10.5 x 6.1 x 13.1 cm air and fluid collection about stomach which is suspicious for an anastomic leak. Pt post op day 1 from Laparoscopic closure of perforated Gastro-jejunal anastomotic ulcer. Drainage of abdominal abscess. Laparoscopic Lysis of adhesions due to a large abscess in lesser sac posterior to stomach. Pt today has still not had bowel movment or passed gas. Pt making urination and only has moderate abdominal pain. Pt denies chest pain, shortness of breath, fevers chills. Pt tested COVID + in ICU but no symptoms so will cont to monitor. Spoke with surgery and agreeable to transfered to telemetry for close monitoring and ICU will be happy to consult if need be. PE: GENERAL: Awake, alert, and fully oriented, in moderate distress. HEAD: Normal with no signs of trauma. EYES: Pupils equal, round and reactive to light, extraocular movements intact, sclera anicteric, conjunctiva clear. No lid lag. EARS, NOSE, THROAT: Ears normal, nares patent, NECK: supple without lymphadenopathy, JVD, or masses. LUNGS: Breath sounds equal, clear to auscultation bilaterally. No wheezes, and no crackles. No accessory muscle use. HEART: Regular rate and rhythm, normal S1 and S2 without murmur, rub or gallop. ABDOMEN: surgical scars with drain at 30cc of fluid. Tenderness to palpation LUQ and LLQ MUSCULOSKELETAL: Normal range of motion at all joints. No bony deformities or tenderness. UPPER EXTREMITIES: 2+ pulses, warm, well-perfused. No cyanosis. No clubbing. Cap refill <2 seconds. No peripheral edema. LOWER EXTREMITIES: 2+ pulses, warm, well-perfused. No calf tenderness. No peripheral edema. NEUROLOGICAL: Cranial nerves II-XII grossly intact. Normal speech. PSYCHIATRIC: Cooperative. Good eye contact. Appropriate mood and affect. SKIN: Warm, dry, normal turgor, no rashes or lesions noted.
--- NOTE | 2020-05-02 14:12 | PN ---
Teaching Attending Note Name of Resident: Roel Narvaez ATTENDING PHYSICIAN STATEMENT I saw and evaluated the patient. I reviewed the resident's note and discussed the case with the resident. I agree with the resident's findings and plan as documented. SUBJECTIVE: Patient seen and examined in the ICU. POD #1: Laparoscopic closure of perforated Gastro-jejunal anastomotic ulcer. Drainage of abdominal abscess. Laparoscopic Lysis of adhesions due to a large abscess in lesser sac posterior to stomach. Abdominal pain improved from yesterday. No CP or SOB. Intake & Output 04/29/20 04/30/20 05/01/20 05/02/20 23:59 23:59 23:59 23:59 Intake Total 4283 1196 Output Total 0 1860 200 Balance 0 2423 996 Weight 260 lb 2.327 oz 260 lb 2.327 oz 264 lb 8.875 oz Last Vital Signs Temp Pulse Resp BP Pulse Ox 98 F 78 20 136/74 96 05/02/20 07:00 05/02/20 12:00 05/02/20 12:00 05/02/20 12:00 05/02/20 12:00 Active Medications Enoxaparin Sodium (Lovenox -) 40 mg SQ DAILY [facility] Last Admin: 05/02/20 09:31 Dose: 40 mg Documented by: Lactated Ringer's (Lactated Ringers Solution) 1,000 ml in 1,000 mls @ 83 mls/hr IV ASDIR QI Last Admin: 05/01/20 18:00 Dose: 83 mls Documented by: Piperacillin Sod/Tazobactam (Sod 4.5 gm/ Dextrose) 100 mls @ 200 mls/hr IVPB Q8H-IV QI; Protocol Methadone HCl (Dolophine -) 10 mg PO BID [facility] Last Admin: 05/02/20 09:31 Dose: Not Given Documented by: Mupirocin (Bactroban Ointment (For Decolonization) -) 1 applic NS BID [facility] Stop: 05/06/20 21:59 Last Admin: 05/02/20 09:31 Dose: Not Given Documented by: Pantoprazole Sodium (Protonix Iv) 40 mg IVPUSH DAILY [facility] Last Admin: 05/02/20 09:31 Dose: 40 mg Documented by: GENERAL: Awake, alert, and fully oriented, NAD HEAD: Normal with no signs of trauma. EYES: sclera anicteric, conjunctiva clear. EARS, NOSE, THROAT: Ears normal, nares patent, NECK: supple without lymphadenopathy, JVD, or masses. LUNGS: Breath sounds equal, clear to auscultation bilaterally. No wheezes, and no crackles. No accessory muscle use. HEART: Regular rate and rhythm, normal S1 and S2 without murmur, rub or gallop. ABDOMEN: Mild tenderness to palpation, Hypoactive BS MUSCULOSKELETAL: Normal range of motion at all joints. No bony deformities or tenderness. UPPER EXTREMITIES: 2+ pulses, warm, well-perfused. No cyanosis. No clubbing. Cap refill <2 seconds. No peripheral edema. LOWER EXTREMITIES: 2+ pulses, warm, well-perfused. No calf tenderness. No peripheral edema. NEUROLOGICAL: Non-focal PSYCHIATRIC: Cooperative. Good eye contact. Appropriate mood and affect. SKIN: Warm, dry, normal turgor, no rashes or lesions noted. Laboratory Results - last 24 hr 04/30/20 05/01/20 05/01/20 21:40 17:58 17:58 WBC 14.1 H RBC 4.54 Hgb 12.0 Hct 37.0 MCV 81.6 MCH 26.5 MCHC 32.4 RDW 15.3 Plt Count 211 MPV 9.1 Absolute Neuts (auto) 13.0 H Neutrophils % 92.0 H Neutrophils % (Manual) 84.3 H Band Neutrophils % 7.4 Lymphocytes % 2.5 L D Lymphocytes % (Manual) 4.6 L Monocytes % 5.2 Monocytes % (Manual) 4 Eosinophils % 0.0 Eosinophils % (Manual) 0.0 Basophils % 0.3 Basophils % (Manual) 0.0 Myelocytes % (Man) 0 Promyelocytes % (Man) 0 Blast Cells % (Manual) 0 Nucleated RBC % 0 Metamyelocytes 0 Hypochromia 0 Platelet Estimate Normal Polychromasia 1+ Poikilocytosis 0 Macrocytosis 0 Sodium 143 Potassium 3.3 L Chloride 107 Carbon Dioxide 28 Anion Gap 8 BUN 22.3 H Creatinine 1.0 Est GFR (CKD-EPI)AfAm 105.62 Est GFR (CKD-EPI)NonAf 91.13 Random Glucose 151 H Calcium 8.0 L Phosphorus 3.3 Magnesium 1.8 Total Bilirubin 0.6 AST 73 H ALT 79 H Alkaline Phosphatase 61 Total Protein 5.9 L Albumin 2.7 L COVID-19 ([facility]) Detected H 05/02/20 05/02/20 05:25 05:25 WBC 13.2 H RBC 4.24 Hgb 11.1 L Hct 34.3 L MCV 80.8 MCH 26.3 MCHC 32.5 RDW 15.3 Plt Count 210 MPV 9.3 Absolute Neuts (auto) 11.6 H Neutrophils % 87.5 H Neutrophils % (Manual) Band Neutrophils % Lymphocytes % 4.9 L D Lymphocytes % (Manual) Monocytes % 7.5 Monocytes % (Manual) Eosinophils % 0.0 Eosinophils % (Manual) Basophils % 0.1 Basophils % (Manual) Myelocytes % (Man) Promyelocytes % (Man) Blast Cells % (Manual) Nucleated RBC % 0 Metamyelocytes Hypochromia Platelet Estimate Polychromasia Poikilocytosis Macrocytosis Sodium 143 Potassium 3.8 Chloride 108 H Carbon Dioxide 30 Anion Gap 6 L BUN 20.2 H Creatinine 0.6 Est GFR (CKD-EPI)AfAm 141.72 Est GFR (CKD-EPI)NonAf 122.28 Random Glucose 106 Calcium 7.8 L Phosphorus 2.6 Magnesium 2.2 Total Bilirubin 0.5 AST 81 H ALT 94 H Alkaline Phosphatase 56 Total Protein 5.7 L Albumin 2.5 L COVID-19 ([facility]) ASSESSMENT/PLAN: Sepsis due to Intra-abdominal abscess POD #1: Laparoscopic closure of perforated Gastro-jejunal anastomotic ulcer. Dr browne of abdominal abscess. Laparoscopic Lysis of adhesions due to a large abscess in lesser sac posterior to stomach. COVID 19 (+) IVF NPO NGT decompression ABX per ID Strict I & O Supplemental O2 as needed VTE prophylaxis No specific TX for COVID19 at this point Floor when cleared by surgery Dr Lynch
[2020-05-02 15:26] VITALS: BMI 36.8
[2020-05-02] MEDS ORDERED: PIPERACILLIN/TAZOB 4.5 GM 4.5 GM in DEXTROSE 5%-WATER 100 ML IVPB SCH (18:00)
--- NOTE | 2020-05-02 18:22 | CONS ---
INFECTIOUS DISEASE CONSULTATION DATE OF CONSULTATION: DATE OF DICTATION: 05/02/2020 REQUESTING PHYSICIAN: Dr. Tam HISTORY: This is a 44-year-old man who was admitted on the with acute abdominal pain. He has a history of gastric [place] [address] Gonzalez followed by several hernias that he said were repaired by Dr. Gonzalez as well. He has a history of chronic pain. He presented to the ER with severe abdominal pain that started on the day prior to admission. He has been taking nonsteroidals as he has been having a lot of pain recently. He is on methadone for pain, which he says has not been working, and he added nonsteroidals for pain control. He denies cough at this time. He was seen and evaluated in the emergency room. He had a CAT scan that showed a perforated, anastomotic site at the site of his gastric bypass surgery. He was given a dose of Zosyn, and he was taken to the operating room by Dr. Gonzalez. He underwent last night a laparoscopic closure of a perforated gastrojejunal anastomotic site, and there was a gastrojejunal ulcer at that site and then abscess was drained. Unfortunately, no cultures were sent as this was a laparoscopic procedure. He is now resting comfortably in the ICU. He is complaining of discomfort from his NG tube. PAST MEDICAL HISTORY: Notable for hypertension, chronic back pain, peptic ulcer. SURGICAL HISTORY: Notable for gastric bypass in 2004. He has had multiple hernia repairs including an inguinal hernia as well as a [place] defect. FAMILY HISTORY: Noncontributory. SOCIAL HISTORY: He smokes cigarettes. He denies any other substance use. His primary doctor is Dr. Foreman. He is homeless and lives in a intermediate. ALLERGIES: He has no known drug allergies. MEDICATIONS: He takes methadone, Protonix, and ibuprofen as an outpatient. REVIEW OF SYSTEMS: Currently only notable for pain. He denies fevers and chills at home. PHYSICAL EXAMINATION: Vital Signs: His temperature is 98, his maximum temperature is 100, pulse of 77, blood pressure is 127/71, respiratory rate is 20, saturating 98% on room air. HEENT: He is normocephalic. His eyes are anicteric. He has an NG tube in place. Neck: Supple. Lungs: Clear. Heart: Regular rate and rhythm. Abdomen: Soft. He has multiple laparoscopic sites, and he has got a J-P drain with clear drainage. Extremities: Without edema. White count was 16.1 yesterday, today is 13.2. Hemoglobin is 11.1 and platelets are 210. BUN 20, creatinine 0.6. AST of 81, ALT of 94. Urinalysis is negative. His COVID PCR is positive. Chest x-ray is negative. Urine culture is no growth. In summary, this is a 44-year-old man admitted with a perforated gastric anastomosis status post surgery postop day 1. No cultures were sent. Would continue Zosyn as ordered. COVID PCR positive. He has no signs of COVID pneumonia and appears to be oxygenating well. Would maintain airborne and contact isolation. TATO GONG M.D. [id number]
[2020-05-03] MEDS: LACTATED RINGERS SOLUTION 1,000 ML/1,000 ML INFUS.BAG IV SCH (00:30)
[2020-05-03] MEDS: PIPERACILLIN/TAZOB 4.5 GM 4.5 GM in DEXTROSE 5%-WATER 100 ML IVPB SCH ×3 (01:45→18:32)
[2020-05-03] MEDS ORDERED: DEXTROSE 5%-WATER 100 ML IVPB ONE ×3 (01:59→17:42)
[2020-05-03] MEDS ORDERED: PIPERACILLIN/TAZOBACTAM 4.5 GM VIAL IVPB ONE ×3 (01:59→17:41)
[2020-05-03] MEDS: ENOXAPARIN NA (PORCINE) 40 MG/0.4 ML DISP.SYRIN SQ SCH (10:22)
[2020-05-03] MEDS: METHADONE HCL 10 MG TABLET PO SCH ×2 (10:22→21:11)
[2020-05-03] MEDS: PANTOPRAZOLE SODIUM 40 MG VIAL IVPUSH SCH (10:22)
--- NOTE | 2020-05-03 10:37 | PN ---
Progress Note, Physician History of Present Illness: Pt seen/ examined chaert is reviewed all f/u noted comfortable afebrile On 100 NRB - Current Medication List Current Medications: Active Medications Enoxaparin Sodium (Lovenox -) 40 mg SQ DAILY [facility] Last Admin: 05/03/20 10:22 Dose: 40 mg Documented by: Lactated Ringer's (Lactated Ringers Solution) 1,000 ml in 1,000 mls @ 83 mls/hr IV ASDIR QI Last Admin: 05/03/20 00:30 Dose: 83 mls/hr Documented by: Piperacillin Sod/Tazobactam (Sod 4.5 gm/ Dextrose) 100 mls @ 200 mls/hr IVPB Q8H-IV QI; Protocol Last Admin: 05/03/20 10:23 Dose: 200 mls/hr Documented by: Methadone HCl (Dolophine -) 10 mg PO BID [facility] Last Admin: 05/03/20 10:22 Dose: 10 mg Documented by: Pantoprazole Sodium (Protonix Iv) 40 mg IVPUSH DAILY [facility] Last Admin: 05/03/20 10:22 Dose: 40 mg Documented by: - Objective Vital Signs: Vital Signs Temperature 98 F 05/03/20 06:00 Pulse Rate 77 05/03/20 06:00 Respiratory Rate 20 05/03/20 06:00 Blood Pressure 148/88 05/03/20 06:00 O2 Sat by Pulse Oximetry (%) 99 05/03/20 06:00 Constitutional: Yes: No Distress, Other (ngt) Neck: Yes: Supple Cardiovascular: Yes: Regular Rate and Rhythm Respiratory: Yes: Diminished Gastrointestinal: Yes: Soft Edema: No Labs: CBC, BMP 05/02/20 05:25 05/02/20 05:25 INR, PTT INR 1.32 (0.83-1.09) H 05/01/20 05:30 Problem List - Problems (1) Anastomotic leak of stomach Code(s): K91.89 - OTH POSTPROCEDURAL COMPLICATIONS AND DISORDERS OF DGSTV SYS (2) COVID-19 virus detected Code(s): U07.1 - COVID POSITIVE (3) Intra-abdominal abscess Code(s): K65.1 - PERITONEAL ABSCESS (4) Morbid obesity Code(s): E66.01 - MORBID (SEVERE) OBESITY DUE TO EXCESS CALORIES Assessment/Plan pod #2 Discussed with Rn also Agree with current management abx covid precautions in place npo monitor lytes Pulmonary on case will follow
--- NOTE | 2020-05-03 15:46 | PN ---
Progress Note (short form) - Note Progress Note: POD#2 Afebrile; VSS Pt doing well Was oob to chair No N/V No flatus No complaints of abdominal pain P/E- Abd- all trocar sites healing well J-P site healing well WBC-13.2 H/H-11.1/34.3 J-P drain-15 cc/24 hours NGT- 350 cc P- Continue NGT,NPO F/U CT scan on Tuesday. If CT scan shows no leak, will clamp NGT and hope to D/C Continue antibiotics Check labs in AM
[2020-05-04] MEDS ORDERED: DEXTROSE 5%-WATER 100 ML IVPB ONE ×3 (02:12→17:15)
[2020-05-04] MEDS ORDERED: PIPERACILLIN/TAZOBACTAM 4.5 GM VIAL IVPB ONE ×3 (02:12→17:15)
[2020-05-04] MEDS: LACTATED RINGERS SOLUTION 1,000 ML/1,000 ML INFUS.BAG IV SCH (02:45)
[2020-05-04] MEDS: PIPERACILLIN/TAZOB 4.5 GM 4.5 GM in DEXTROSE 5%-WATER 100 ML IVPB SCH ×3 (02:45→17:25)
[2020-05-04 07:39] LABS: BASO % 0.4 % (0-2.0); EOS % 0.6 % (0-4.5); HEMATOCRIT 33.5 % (35.4-49); LYMPH % 8.9 % (8-40); MCH 26.7 pg (25.7-33.7); MCHC 32.8 g/dl (32.0-35.9); MEAN CELL VOLUME 81.3 fl (80-96); MEAN PLT VOLUME 9.4 fl (7.5-11.1); NEUT % 81.1 % (42.8-82.8); PLATELET COUNT 227 K/MM3 (134-434); RBC 4.13 M/mm3 (4.00-5.60); RDW 14.9 % (11.9-15.9); WHITE BLOOD COUNT 9.1 K/mm3 (4.0-10.0)
[2020-05-04 08:05] LABS: ALBUMIN 2.4 g/dl (3.4-5.0); BILIRUBIN,TOTAL 0.7 mg/dL (0.2-1); BLOOD UREA NITROGEN 20.2 mg/dL (7-18); CALCIUM 8.2 mg/dL (8.5-10.1); CREATININE 0.4 mg/dL (0.55-1.3); TOT PROT 5.8 g/dl (6.4-8.2)
[2020-05-04] MEDS: PANTOPRAZOLE SODIUM 40 MG VIAL IVPUSH SCH (09:33)
[2020-05-04] MEDS: METHADONE HCL 10 MG TABLET PO SCH ×2 (09:33→21:21)
[2020-05-04] MEDS: ENOXAPARIN NA (PORCINE) 40 MG/0.4 ML DISP.SYRIN SQ SCH (09:33)
--- NOTE | 2020-05-04 12:22 | PN ---
Progress Note, Physician History of Present Illness: Pt seen/ examined all f/u noted comfortable afebrile Looks and feels better No distress - Current Medication List Current Medications: Active Medications Enoxaparin Sodium (Lovenox -) 40 mg SQ DAILY [facility] Last Admin: 05/04/20 09:33 Dose: 40 mg Documented by: Lactated Ringer's (Lactated Ringers Solution) 1,000 ml in 1,000 mls @ 83 mls/hr IV ASDIR QI Last Admin: 05/04/20 02:45 Dose: 83 mls/hr Documented by: Piperacillin Sod/Tazobactam (Sod 4.5 gm/ Dextrose) 100 mls @ 200 mls/hr IVPB Q8H-IV QI; Protocol Last Admin: 05/04/20 09:33 Dose: 200 mls/hr Documented by: Methadone HCl (Dolophine -) 10 mg PO BID [facility] Last Admin: 05/04/20 09:33 Dose: 10 mg Documented by: Pantoprazole Sodium (Protonix Iv) 40 mg IVPUSH DAILY [facility] Last Admin: 05/04/20 09:33 Dose: 40 mg Documented by: - Objective Vital Signs: Vital Signs Temperature 98.1 F 05/04/20 10:00 Pulse Rate 62 05/04/20 10:00 Respiratory Rate 18 05/04/20 10:00 Blood Pressure 149/75 05/04/20 10:00 O2 Sat by Pulse Oximetry (%) 93 L 05/04/20 09:00 Constitutional: Yes: No Distress Neck: Yes: Supple Cardiovascular: Yes: Regular Rate and Rhythm Respiratory: Yes: Diminished Gastrointestinal: Yes: Soft Edema: No Labs: CBC, BMP 05/04/20 05:55 05/04/20 05:55 INR, PTT INR 1.32 (0.83-1.09) H 05/01/20 05:30 Problem List - Problems (1) Anastomotic leak of stomach Code(s): K91.89 - OTH POSTPROCEDURAL COMPLICATIONS AND DISORDERS OF DGSTV SYS (2) COVID-19 virus detected Code(s): U07.1 - COVID POSITIVE (3) Intra-abdominal abscess Code(s): K65.1 - PERITONEAL ABSCESS (4) Morbid obesity Code(s): E66.01 - MORBID (SEVERE) OBESITY DUE TO EXCESS CALORIES Assessment/Plan pod #3 Agree with current management abx covid precautions in place npo-- ngt start orally when surgery clears monitor lytes Pulmonary on case taper oxygen will follow
[2020-05-05] MEDS: PIPERACILLIN/TAZOB 4.5 GM 4.5 GM in DEXTROSE 5%-WATER 100 ML IVPB SCH ×3 (03:00→18:24)
[2020-05-05] MEDS ORDERED: PIPERACILLIN/TAZOBACTAM 4.5 GM VIAL IVPB ONE ×3 (03:53→18:16)
[2020-05-05] MEDS ORDERED: DEXTROSE 5%-WATER 100 ML IVPB ONE ×3 (03:54→18:16)
[2020-05-05] MEDS: LACTATED RINGERS SOLUTION 1,000 ML/1,000 ML INFUS.BAG IV SCH ×2 (05:03→18:36)
--- NOTE | 2020-05-05 08:31 | PN ---
Progress Note (short form) - Note Progress Note: Surgery POD #4 Laparoscopic lysis of adhesions, drainage of abdominal abscess, closure of perforated gastro-jejunal anastomotic ulcer. COVID + Patient seen and examined on AM rounds with no new complaints. He is having some irritation of the right nares where his NGT is placed. He would like to drink something. He is passing gas from below and voiding but has not had a BM yet. He denies any CP, SOB, N/V, fever or chills. Vital Signs Temp 98.2 F 05/05/20 02:00 Pulse 54 L 05/05/20 06:00 Resp 20 05/05/20 06:00 BP 148/74 05/05/20 06:00 Pulse Ox 98 05/05/20 06:00 Intake & Output 05/04/20 05/04/20 05/05/20 11:59 23:59 11:59 Intake Total 1096 1196 1096 Output Total 0319 676 4782 Balance -104 361 -209 Intake: IV 996 996 996 RFA 996 996 996 IVPB 100 200 100 Output: Gastric Drainage 100 Drainage 35 5 Right Abdomen 35 5 Urine 1213 552 1364 [place] 8000 328 0069 Other: Voiding Method Indwelling Catheter Indwelling Catheter Bowel Movement No No CBC, BMP 05/04/20 05:55 05/04/20 05:55 PE: A&Ox3, NAD Unlabored resp on 50% NRB, NGT in place-flushed on rounds, working well- put out 100cc yesterday. Afebrile; VSS ABD: Obese, soft, ND/ NT, port sites c/d/i with dermabond and surrounding tissue intact with no tracking erythema, edema or d/c Drain at RLQ well secure with scant ss d/c. stripped and working well B/L LE compartments soft, NT, ND with scds in place, +DP pulses. Problem List - Problems (1) Anastomotic leak of stomach Assessment/Plan: POD #4 patient doing well with no complaints and passing flatus. -Continue NGT,NPO -F/U CT scan with oral contrast today If CT scan shows no leak, will clamp NGT and hope to D/C -Continue antibiotics -trend daily labs Evaluation and plan discussed with Dr Gonzalez. Code(s): K91.89 - [facility] POSTPROCEDURAL COMPLICATIONS AND DISORDERS OF DGSTV SYS (2) Intra-abdominal abscess Code(s): K65.1 - PERITONEAL ABSCESS
[2020-05-05] MEDS: ENOXAPARIN NA (PORCINE) 40 MG/0.4 ML DISP.SYRIN SQ SCH (10:23)
[2020-05-05] MEDS: METHADONE HCL 10 MG TABLET PO SCH ×2 (10:24→22:07)
[2020-05-05] MEDS: PANTOPRAZOLE SODIUM 40 MG VIAL IVPUSH SCH (10:25)
--- NOTE | 2020-05-05 11:49 | PN ---
Progress Note, Physician History of Present Illness: POD #4 Laparoscopic lysis of adhesions, drainage of abdominal abscess, closure of perforated gastro-jejunal anastomotic ulcer. COVID + Comfortable not examined today as just examined by surgical team F/u noted D/W RN also Chart is reviewed - Current Medication List Current Medications: Active Medications Enoxaparin Sodium (Lovenox -) 40 mg SQ DAILY [facility] Last Admin: 05/05/20 10:23 Dose: 40 mg Documented by: Lactated Ringer's (Lactated Ringers Solution) 1,000 ml in 1,000 mls @ 83 mls/hr IV ASDIR QI Last Admin: 05/05/20 05:03 Dose: 83 mls/hr Documented by: Piperacillin Sod/Tazobactam (Sod 4.5 gm/ Dextrose) 100 mls @ 200 mls/hr IVPB Q8H-IV QI; Protocol Last Admin: 05/05/20 10:23 Dose: 200 mls/hr Documented by: Methadone HCl (Dolophine -) 10 mg PO BID [facility] Last Admin: 05/05/20 10:24 Dose: 10 mg Documented by: Pantoprazole Sodium (Protonix Iv) 40 mg IVPUSH DAILY [facility] Last Admin: 05/05/20 10:25 Dose: 40 mg Documented by: - Objective Vital Signs: Vital Signs Temperature 98.3 F 05/05/20 09:45 Pulse Rate 54 L 05/05/20 09:45 Respiratory Rate 05/05/20 09:45 Blood Pressure 155/75 05/05/20 09:45 O2 Sat by Pulse Oximetry (%) 94 L 05/05/20 09:45 Labs: CBC, BMP 05/04/20 05:55 05/04/20 05:55 INR, PTT INR 1.32 (0.83-1.09) H 05/01/20 05:30 Problem List - Problems (1) Anastomotic leak of stomach Code(s): K91.89 - OTH POSTPROCEDURAL COMPLICATIONS AND DISORDERS OF DGSTV SYS (2) COVID-19 virus detected Code(s): U07.1 - COVID POSITIVE (3) Intra-abdominal abscess Code(s): K65.1 - PERITONEAL ABSCESS (4) Morbid obesity Code(s): E66.01 - MORBID (SEVERE) OBESITY DUE TO EXCESS CALORIES Assessment/Plan pod #4 Agree with current management abx covid precautions in place npo-- ct scan today ngt start orally when surgery clears monitor lytes Pulmonary on case will follow
--- NOTE | 2020-05-05 12:51 | PN ---
Progress Note (short form) - Note Progress Note: wearing NRB mask stays his nose is clogged and ngt is uncomfortable nurse says he is desating off the mask Vital Signs Period Temp Pulse Resp BP Sys/Hubbard Pulse Ox Last 24 Hr 97.9 F-98.3 F 50-64 18-20 142-170/74-82 93-98 cor-rrr lungs clear abd soft,nt +ASA wth clear fluid ext no edema CBC, BMP 05/04/20 05:55 05/04/20 05:55 Microbiology 04/30/20 11:40 Urine - Urine Clean Catch Urine Culture - Final NO GROWTH OBTAINED imp/reccd perforated gastcir anastomasis with PMH of prior gastric bypass s/p -laporascopic closure of perforated gastrojejunal anastomosis, gastrojejunal ulcer, drainage of abscess he is doing well postop day #[address] scan today covid PCR positive- now with hlypoxia vs discomfort from tubes in his face d/w pulmonary will get chest ct today to r/o covid pneumonia maintain contact/ airborne isolation Problem List - Problems (1) Intra-abdominal abscess Code(s): K65.1 - PERITONEAL ABSCESS (2) Anastomotic leak of stomach Code(s): K91.89 - OTH POSTPROCEDURAL COMPLICATIONS AND DISORDERS OF DGSTV SYS (3) COVID-19 virus detected Code(s): U07.1 - COVID POSITIVE
--- NOTE | 2020-05-05 13:30 | PN ---
Progress Note (short form) - Note Progress Note: Awake and alert. Reports discomfort from NGT. Says breathing and ability to speak is better today than over the weekend. Desaturates off O2. Intake & Output 05/02/20 05/03/20 05/04/20 05/05/20 23:59 23:59 23:59 23:59 Intake Total 2392 776 2292 1096 Output Total 1950 1315 2035 1305 Balance 442 -539 257 -209 Weight 264 lb Last Vital Signs Temp Pulse Resp BP Pulse Ox 98.3 F 54 L 20 155/75 94 L 05/05/20 09:45 05/05/20 09:45 05/05/20 09:45 05/05/20 09:45 05/05/20 09:45 Active Medications Enoxaparin Sodium (Lovenox -) 40 mg SQ DAILY [facility] Last Admin: 05/05/20 10:23 Dose: 40 mg Documented by: Lactated Ringer's (Lactated Ringers Solution) 1,000 ml in 1,000 mls @ 83 mls/hr IV ASDIR [facility] Last Admin: 05/05/20 05:03 Dose: 83 mls/hr Documented by: Piperacillin Sod/Tazobactam (Sod 4.5 gm/ Dextrose) 100 mls @ 200 mls/hr IVPB Q8H-IV QI; Protocol Last Admin: 05/05/20 10:23 Dose: 200 mls/hr Documented by: Methadone HCl (Dolophine -) 10 mg PO BID [facility] Last Admin: 05/05/20 10:24 Dose: 10 mg Documented by: Pantoprazole Sodium (Protonix Iv) 40 mg IVPUSH DAILY [facility] Last Admin: 05/05/20 10:25 Dose: 40 mg Documented by: GENERAL: Awake, alert, and fully oriented, NAD HEAD: Normal with no signs of trauma. EYES: sclera anicteric, conjunctiva clear. EARS, NOSE, THROAT: Ears normal, nares patent, NECK: supple without lymphadenopathy, JVD, or masses. LUNGS: Breath sounds equal, clear to auscultation bilaterally. No wheezes, and no crackles. No accessory muscle use. HEART: Regular rate and rhythm, normal S1 and S2 without murmur, rub or gallop. ABDOMEN: Mild tenderness to palpation, Hypoactive BS MUSCULOSKELETAL: Normal range of motion at all joints. No bony deformities or tenderness. UPPER EXTREMITIES: 2+ pulses, warm, well-perfused. No cyanosis. No clubbing. Cap refill <2 seconds. No peripheral edema. LOWER EXTREMITIES: 2+ pulses, warm, well-perfused. No calf tenderness. No peripheral edema. NEUROLOGICAL: Non-focal PSYCHIATRIC: Cooperative. Good eye contact. Appropriate mood and affect. SKIN: Warm, dry, normal turgor, no rashes or lesions noted. Laboratory Results - last 24 hr 05/05/20 05:39 POC Glucometer 91 ASSESSMENT/PLAN: Sepsis due to Intra-abdominal abscess POD #4: Laparoscopic closure of perforated Gastro-jejunal anastomotic ulcer. Drainage of abdominal abscess. Laparoscopic Lysis of adhesions due to a large abscess in lesser sac posterior to stomach. COVID 19 (+) Add CT Chest to imaging today NPO per Surgery NGT decompression ABX per ID Strict I & O Supplemental O2 as needed VTE prophylaxis Dr Lynch
--- NOTE | 2020-05-05 16:40 | PN ---
Progress Note (short form) - Note Progress Note: POD#4 Pulm, ID, Medical notes appreciated Afebrile; VSS Pt doing well No c/o abdominal pain P/E- Abd- all trocar sites healing all clean,dry Ext- no swelling noted WBC-9.1 (05/04)- reduced J-P drainage- 5cc in 24 hours sero-sanguinous NGT- 100cc P- Ct scan done- awaiting report If no leak, will begin PO clear liquids slowly Check labs in Am Encourage OOB, Incentive spirometer Cont DVT prophylaxis
[2020-05-06] MEDS ORDERED: PIPERACILLIN/TAZOBACTAM 4.5 GM VIAL IVPB ONE ×3 (02:08→16:56)
[2020-05-06] MEDS ORDERED: DEXTROSE 5%-WATER 100 ML IVPB ONE ×3 (02:09→16:57)
[2020-05-06] MEDS: PIPERACILLIN/TAZOB 4.5 GM 4.5 GM in DEXTROSE 5%-WATER 100 ML IVPB SCH ×3 (02:40→17:03)
[2020-05-06] MEDS: LACTATED RINGERS SOLUTION 1,000 ML/1,000 ML INFUS.BAG IV SCH (06:51)
[2020-05-06 07:05] LABS: BASO % 0.4 % (0-2.0); EOS % 1.9 % (0-4.5); HEMATOCRIT 35.4 % (35.4-49); HEMOGLOBIN 11.9 GM/dL (11.7-16.9); LYMPH % 7.8 % (8-40); MCH 26.6 pg (25.7-33.7); MCHC 33.5 g/dl (32.0-35.9); MEAN CELL VOLUME 79.5 fl (80-96); MEAN PLT VOLUME 8.9 fl (7.5-11.1); MONO % 7.6 % (3.8-10.2); NEUT % 82.3 % (42.8-82.8); PLATELET COUNT 265 K/MM3 (134-434); RBC 4.46 M/mm3 (4.00-5.60); RDW 14.1 % (11.9-15.9); WHITE BLOOD COUNT 10.6 K/mm3 (4.0-10.0)
[2020-05-06 07:30] LABS: ALBUMIN 2.3 g/dl (3.4-5.0); BILIRUBIN,TOTAL 0.9 mg/dL (0.2-1); BLOOD UREA NITROGEN 13.8 mg/dL (7-18); CALCIUM 7.8 mg/dL (8.5-10.1); CREATININE 0.3 mg/dL (0.55-1.3); POTASSIUM 3.5 mmol/L (3.5-5.1); TOT PROT 5.8 g/dl (6.4-8.2)
--- NOTE | 2020-05-06 08:22 | PN ---
Progress Note (short form) - Note Progress Note: Surgery POD #5 Laparoscopic lysis of adhesions, drainage of abdominal abscess, closure of perforated gastro-jejunal anastomotic ulcer. COVID + Patient seen and examined on AM rounds with no new complaints. His biggest complaint the irritation of the right nares where his NGT is placed. He is voiding and moved his bowels yesterday. He denies any CP, SOB, N/V, fever or chills. Vital Signs Temp 98.0 F 05/06/20 10:00 Pulse 65 05/06/20 10:00 Resp 20 05/06/20 10:00 BP 142/74 05/06/20 10:00 Pulse Ox 99 05/06/20 10:00 Intake & Output 05/05/20 05/06/20 05/06/20 23:59 11:59 23:59 Intake Total 947 1330 Output Total 3000 Balance 947 -1670 Intake: IV 747 990 RFA 747 990 IVPB 200 100 Oral 240 Output: Urine 3000 Seals 3000 Other: Voiding Method Indwelling Catheter Urinal Bowel Movement Yes # Bowel Movements 1 Body Mass Index (BMI) 36.8 CBC, BMP 05/06/20 05:30 05/06/20 05:30 PE: A&Ox3, NAD Unlabored resp on 50% NRB, NGT removed on rounds, patient tolerated. Afebrile; VSS ABD: Obese, soft, ND/ NT, port sites c/d/i with dermabond and surrounding tissue intact with no tracking erythema, edema or d/c Drain at RLQ well secure with scant ss d/c. stripped and working well B/L LE compartments soft, NT, ND with scds in place, +DP pulses. Problem List - Problems (1) Anastomotic leak of stomach Assessment/Plan: POD #5 patient doing well with no complaints and moving his bowels. NGT removed on rounds. -Start clear diet with fluid restriction 6oz or less on each tray-sips of water in between okay. -Continue antibiotics -trend daily labs -monitor and record drain output -d/c seals Evaluation and plan discussed with Dr Gonzalez. Code(s): K91.89 - OTH POSTPROCEDURAL COMPLICATIONS AND DISORDERS OF DGSTV SYS (2) Intra-abdominal abscess Code(s): K65.1 - PERITONEAL ABSCESS
[2020-05-06] MEDS: PANTOPRAZOLE SODIUM 40 MG VIAL IVPUSH SCH (09:15)
[2020-05-06] MEDS: ENOXAPARIN NA (PORCINE) 40 MG/0.4 ML DISP.SYRIN SQ SCH (09:15)
[2020-05-06] MEDS: METHADONE HCL 10 MG TABLET PO SCH ×2 (09:15→22:50)
--- NOTE | 2020-05-06 10:34 | PN ---
Progress Note, Physician History of Present Illness: PULMONARY ALERT,FEELING BETTER,LESS DYSPNEIC ON 100%NRM,LEWSS ABD DISCOMFORT. HAD TWO BMs - Current Medication List Current Medications: Active Medications Enoxaparin Sodium (Lovenox -) 40 mg SQ DAILY [facility] Last Admin: 05/06/20 09:15 Dose: 40 mg Documented by: Lactated Ringer's (Lactated Ringers Solution) 1,000 ml in 1,000 mls @ 83 mls/hr IV ASDIR [facility] Last Admin: 05/06/20 06:51 Dose: Not Given Documented by: Piperacillin Sod/Tazobactam (Sod 4.5 gm/ Dextrose) 100 mls @ 200 mls/hr IVPB Q8H-IV QI; Protocol Last Admin: 05/06/20 09:15 Dose: 200 mls/hr Documented by: Methadone HCl (Dolophine -) 10 mg PO BID [facility] Last Admin: 05/06/20 09:15 Dose: 10 mg Documented by: Pantoprazole Sodium (Protonix Iv) 40 mg IVPUSH DAILY [facility] Last Admin: 05/06/20 09:15 Dose: 40 mg Documented by: - Objective Vital Signs: Vital Signs Temperature 98.0 F 05/06/20 10:00 Pulse Rate 65 05/06/20 10:00 Respiratory Rate 20 05/06/20 10:00 Blood Pressure 142/74 05/06/20 10:00 O2 Sat by Pulse Oximetry (%) 99 05/06/20 10:00 Constitutional: Yes: Well Nourished, Calm Eyes: Yes: WNL HENT: Yes: WNL Neck: Yes: WNL Cardiovascular: Yes: Regular Rate and Rhythm, S1, S2 Respiratory: Yes: Diminished Gastrointestinal: Yes: Normal Bowel Sounds, Soft Extremities: Yes: WNL Edema: No Labs: CBC, BMP 05/06/20 05:30 05/06/20 05:30 INR, PTT INR 1.32 (0.83-1.09) H 05/01/20 05:30 - ....Imaging Cat Scan: Report Reviewed, Image Reviewed (bilateral patchy airspace disease) Problem List - Problems (1) Sepsis Code(s): A41.9 - SEPSIS, UNSPECIFIED ORGANISM (2) Abdominal pain Code(s): R10.9 - UNSPECIFIED ABDOMINAL PAIN (3) Anastomotic leak of stomach Code(s): K91.89 - OTH POSTPROCEDURAL COMPLICATIONS AND DISORDERS OF DGSTV SYS (4) COVID-19 virus detected Code(s): U07.1 - COVID POSITIVE (5) Intra-abdominal abscess Code(s): K65.1 - PERITONEAL ABSCESS Assessment/Plan ASSESSMENT/PLAN: Sepsis due to Intra-abdominal abscess POD #4: Laparoscopic closure of perforated Gastro-jejunal anastomotic ulcer. Drainage of abdominal abscess. Laparoscopic Lysis of adhesions due to a large abscess in lesser sac posterior to stomach. COVID 19 (+) PNEUMONIA ABX per ID Strict I & O Supplemental O2 as needed VTE prophylaxis Trend inflammatory markers DR PARKER
--- NOTE | 2020-05-06 14:16 | PN ---
Progress Note (short form) - Note Progress Note: POD #5 Laparoscopic lysis of adhesions, drainage of abdominal abscess, closure of perforated gastro-jejunal anastomotic ulcer. COVID + starting clear liquids Vital Signs - 24 hr 05/05/20 05/05/20 05/06/20 18:16 20:49 01:23 Temperature 97.3 F L 97.8 F 98.3 F Pulse Rate 53 L 58 L 52 L Respiratory 20 20 20 Rate Blood Pressure 166/70 137/79 149/70 O2 Sat by Pulse 98 Oximetry (%) 05/06/20 05/06/20 05/06/20 06:00 09:00 10:00 Temperature 98.0 F 98.0 F Pulse Rate 57 L 65 Respiratory 20 20 20 Rate Blood Pressure 153/80 142/74 O2 Sat by Pulse 99 99 Oximetry (%) 05/06/20 14:00 Temperature 99.1 F Pulse Rate 69 Respiratory Rate Blood Pressure 148/83 O2 Sat by Pulse Oximetry (%) Current Medications Generic Name Dose Route Start Last Admin Trade Name Freq PRN Reason Stop Dose Admin Enoxaparin Sodium 40 mg 05/03/20 10:00 05/06/20 09:15 Lovenox - SQ 40 mg DAILY QI Administration Lactated Ringer's 1,000 ml in 1,000 mls @ 83 mls/hr 05/03/20 00:33 05/06/20 06:51 Lactated Ringers Solution IV Not Given ASDIR QI Piperacillin Sod/Tazobactam 100 mls @ 200 mls/hr 05/03/20 02:00 05/06/20 09:15 Sod 4.5 gm/ Dextrose IVPB 200 mls/hr Q8H-IV QI Administration Protocol Methadone HCl 10 mg 05/03/20 10:00 05/06/20 09:15 Dolophine - PO 10 mg BID QI Administration Pantoprazole Sodium 40 mg 05/03/20 10:00 05/06/20 09:15 Protonix Iv IVPUSH 40 mg DAILY QI Administration Laboratory Results - last 24 hr 05/05/20 05/06/20 05/06/20 21:54 05:30 05:30 WBC 10.6 H RBC 4.46 Hgb 11.9 Hct 35.4 MCV 79.5 L MCH 26.6 MCHC 33.5 RDW 14.1 Plt Count 265 MPV 8.9 Absolute Neuts (auto) 8.7 H Neutrophils % 82.3 Lymphocytes % 7.8 L Monocytes % 7.6 Eosinophils % 1.9 D Basophils % 0.4 Nucleated RBC % 0 Sodium 139 Potassium 3.5 Chloride 100 Carbon Dioxide 34 H Anion Gap 5 L BUN 13.8 Creatinine 0.3 L Est GFR (CKD-EPI)AfAm 188.44 Est GFR (CKD-EPI)NonAf 162.59 POC Glucometer 78 Random Glucose 72 L Calcium 7.8 L Total Bilirubin 0.9 AST 23 ALT 51 Alkaline Phosphatase 57 Total Protein 5.8 L Albumin 2.3 L 05/06/20 06:38 WBC RBC Hgb Hct MCV MCH MCHC RDW Plt Count MPV Absolute Neuts (auto) Neutrophils % Lymphocytes % Monocytes % Eosinophils % Basophils % Nucleated RBC % Sodium Potassium Chloride Carbon Dioxide Anion Gap BUN Creatinine Est GFR (CKD-EPI)AfAm Est GFR (CKD-EPI)NonAf POC Glucometer 69 Random Glucose Calcium Total Bilirubin AST ALT Alkaline Phosphatase Total Protein Albumin not examined today - was just seen by Pulmonary and Surgery PLAN IV fluids IV antibiotics labs noted DVT prophyalxis-- Lovenox sc Problem List - Problems (1) Anastomotic leak of stomach Code(s): K91.89 - OTH POSTPROCEDURAL COMPLICATIONS AND DISORDERS OF DGSTV SYS (2) Abdominal pain Code(s): R10.9 - UNSPECIFIED ABDOMINAL PAIN (3) Morbid obesity Code(s): E66.01 - MORBID (SEVERE) OBESITY DUE TO EXCESS CALORIES
--- NOTE | 2020-05-06 17:16 | PN ---
Progress Note (short form) - Note Progress Note: wmuch improved ngt out he is still with NRB but ambulating comfortably OOB to bathroom +BM using incentive spirometry chest ct reviewed with cake decorator- more c/w atelectasis/fluid then covid Vital Signs Period Temp Pulse Resp BP Sys/Hubbard Pulse Ox Last 24 Hr 97.3 F-99.1 F 52-69 20-20 137-166/70-83 98-99 cor-rrr lungs decreased bs at bases abd soft, +ASA drain ext no edema CBC, BMP 05/06/20 05:30 05/06/20 05:30 Microbiology 04/30/20 11:40 Urine - Urine Clean Catch Urine Culture - Final NO GROWTH OBTAINED imp/reccd perforated gastric anastomasis with PMH of prior gastric bypass s/p -laporascopic closure of perforated gastrojejunal anastomosis, gastrojejunal ulcer, drainage of abscess he is doing well postop day #5 continue zosyn, encourage incentive spirometry covid PCR positive- maintain contact/ airborne isolation Problem List - Problems (1) Intra-abdominal abscess Code(s): K65.1 - PERITONEAL ABSCESS (2) Anastomotic leak of stomach Code(s): K91.89 - OTH POSTPROCEDURAL COMPLICATIONS AND DISORDERS OF DGSTV SYS (3) COVID-19 virus detected Code(s): U07.1 - COVID POSITIVE
--- NOTE | 2020-05-06 17:59 | PN ---
Progress Note (short form) - Note Progress Note: POD#5 Afebrile; VSS Pt doing well Ambulating in room O2 Sat slightly improved-still on O2 P/E- Abd- all trocar sites healing well; no cellulitis, no drainage WBC- 10.6 H/H-11.9/35.4 CT scan- Resolution of umair-gastric abscess mostly resolved CT scan (lungs)- consolidation bibasilar at bases Pt on PO clear liquids- tolerating well ASA drain- minimal sero-sanguinous drainage NGT, bozena D/C'ed P- Advance to soft diet in AM if ASA drainage remains minimal Pulmonary F/U for O2 Encourage OOB, ambulate in room, incentive spirometer Continue DVT prophylaxis
[2020-05-07] MEDS ORDERED: DEXTROSE 5%-WATER 100 ML IVPB ONE ×3 (01:44→15:10)
[2020-05-07] MEDS ORDERED: PIPERACILLIN/TAZOBACTAM 4.5 GM VIAL IVPB ONE ×3 (01:44→15:10)
[2020-05-07] MEDS: PIPERACILLIN/TAZOB 4.5 GM 4.5 GM in DEXTROSE 5%-WATER 100 ML IVPB SCH ×3 (02:25→18:03)
[2020-05-07] MEDS: LACTATED RINGERS SOLUTION 1,000 ML/1,000 ML INFUS.BAG IV SCH (02:37)
[2020-05-07 07:09] LABS: HEMATOCRIT 36.2 % (35.4-49); MCH 26.3 pg (25.7-33.7); MCHC 33.1 g/dl (32.0-35.9); MEAN CELL VOLUME 79.2 fl (80-96); MEAN PLT VOLUME 8.6 fl (7.5-11.1); PLATELET COUNT 271 K/MM3 (134-434); RBC 4.57 M/mm3 (4.00-5.60); RDW 14.1 % (11.9-15.9); WHITE BLOOD COUNT 8.2 K/mm3 (4.0-10.0)
[2020-05-07 07:48] LABS: ALBUMIN 2.3 g/dl (3.4-5.0); BILIRUBIN,TOTAL 0.6 mg/dL (0.2-1); BLOOD UREA NITROGEN 9.8 mg/dL (7-18); CREATININE 0.4 mg/dL (0.55-1.3); POTASSIUM 3.3 mmol/L (3.5-5.1); TOT PROT 5.7 g/dl (6.4-8.2)
[2020-05-07] MEDS ORDERED: POTASSIUM CHLORIDE TABS 20 MEQ TABLET.ER (FP) PO ONE (08:24)
[2020-05-07] MEDS: METHADONE HCL 10 MG TABLET PO SCH ×2 (09:55→20:59)
[2020-05-07] MEDS: ENOXAPARIN NA (PORCINE) 40 MG/0.4 ML DISP.SYRIN SQ SCH (09:56)
[2020-05-07] MEDS: PANTOPRAZOLE SODIUM 40 MG VIAL IVPUSH SCH (09:56)
--- NOTE | 2020-05-07 10:07 | PN ---
Progress Note, Physician History of Present Illness: pulmonary alert,comfortable oob-chair,on 100%nrm ,saturating well,tolerating liquids - Current Medication List Current Medications: Active Medications Enoxaparin Sodium (Lovenox -) 40 mg SQ DAILY [facility] Last Admin: 05/07/20 09:56 Dose: 40 mg Documented by: Piperacillin Sod/Tazobactam (Sod 4.5 gm/ Dextrose) 100 mls @ 200 mls/hr IVPB Q8H-IV QI; Protocol Last Admin: 05/07/20 09:55 Dose: 200 mls/hr Documented by: Methadone HCl (Dolophine -) 10 mg PO BID [facility] Last Admin: 05/07/20 09:55 Dose: 10 mg Documented by: Pantoprazole Sodium (Protonix Iv) 40 mg IVPUSH DAILY [facility] Last Admin: 05/07/20 09:56 Dose: 40 mg Documented by: - Objective Vital Signs: Vital Signs Temperature 98.5 F 05/07/20 09:03 Pulse Rate 54 L 05/07/20 09:03 Respiratory Rate 20 05/07/20 09:03 Blood Pressure 139/82 05/07/20 09:03 O2 Sat by Pulse Oximetry (%) 99 05/07/20 09:03 Constitutional: Yes: Well Nourished, Calm Eyes: Yes: WNL HENT: Yes: WNL Neck: Yes: WNL Cardiovascular: Yes: Regular Rate and Rhythm, S1, S2 Respiratory: Yes: Diminished Gastrointestinal: Yes: Normal Bowel Sounds, Soft Extremities: Yes: WNL Edema: No Labs: CBC, BMP 05/07/20 06:37 05/07/20 06:37 INR, PTT INR 1.32 (0.83-1.09) H 05/01/20 05:30 Problem List - Problems (1) Sepsis Code(s): A41.9 - SEPSIS, UNSPECIFIED ORGANISM (2) Abdominal pain Code(s): R10.9 - UNSPECIFIED ABDOMINAL PAIN (3) Anastomotic leak of stomach Code(s): K91.89 - OTH POSTPROCEDURAL COMPLICATIONS AND DISORDERS OF DGSTV SYS (4) COVID-19 virus detected Code(s): U07.1 - COVID POSITIVE (5) Intra-abdominal abscess Code(s): K65.1 - PERITONEAL ABSCESS Assessment/Plan ASSESSMENT/PLAN: Sepsis due to Intra-abdominal abscess POD #4: Laparoscopic closure of perforated Gastro-jejunal anastomotic ulcer. Drainage of abdominal abscess. Laparoscopic Lysis of adhesions due to a large abscess in lesser sac posterior to stomach. COVID 19 (+) PNEUMONIA ABX per ID Strict I & O taper fio2 to maintain o2 sat 90% VTE prophylaxis Trend inflammatory markers DR PARKER
--- NOTE | 2020-05-07 13:41 | PN ---
Progress Note (short form) - Note Progress Note: SURGERY s/p Laparoscopic lysis of adhesions, drainage of abdominal abscess, closure of perforated gastro-jejunal anastomotic ulcer. COVID + Patient seen and examined on AM rounds with no new complaints. Pt tolerating liquids well, pt wants regular food. Pt only issue some SOB, that appears to be COVID related, currently on NRB. He is voiding and moved his bowels yesterday. He denies any CP, N/V, fever or chills. Vital Signs Temp 98.5 F 05/07/20 09:03 Pulse 54 L 05/07/20 09:03 Resp 20 05/07/20 09:03 BP 139/82 05/07/20 09:03 Pulse Ox 99 05/07/20 09:03 Intake & Output 05/06/20 05/07/20 05/07/20 23:59 11:59 23:59 Intake Total 950 Output Total 250 720 Balance 700 -720 Intake: IV 120 RFA 120 IVPB 100 Oral 730 Output: Drainage 20 Right Abdomen 20 Urine 250 700 Void 250 700 Other: Voiding Method Urinal Urinal # Unmeasured Voids Void 2 Bowel Movement Yes CBC, BMP 05/07/20 06:37 05/07/20 06:37 PE: A&Ox3, NAD Unlabored resp on 50% NRB, patient tolerated. Afebrile; VSS ABD: Obese, soft, ND/ NT, port sites c/d/i with dermabond and surrounding tissue intact with no tracking erythema, edema or d/c Drain at RLQ well secure with scant ss d/c. stripped and working well B/L LE compartments soft, NT, ND with scds in place, Problem List - Problems (1) Anastomotic leak of stomach Assessment/Plan: POD #6 patient doing well with no complaints and moving his bowels. NGT removed on rounds. -Start soft diet -will consider removing drain tomorrow. -Continue antibiotics -trend daily labs -monitor and record drain output Pt discussed with Dr. Gonzalez who agrees with plan
--- NOTE | 2020-05-07 14:11 | PN ---
Progress Note (short form) - Note Progress Note: POD #6 Laparoscopic lysis of adhesions, drainage of abdominal abscess, closure of perforated gastro-jejunal anastomotic ulcer. COVID + changed to soft diet by surgeon pt is off NRB now on NC saturating well Vital Signs - 24 hr 05/06/20 05/06/20 05/07/20 21:00 22:00 01:48 Temperature 98.9 F 98.3 F Pulse Rate 58 L 59 L Respiratory 18 18 Rate Blood Pressure 144/92 137/78 O2 Sat by Pulse 99 99 Oximetry (%) 05/07/20 05/07/20 05/07/20 06:30 09:00 09:03 Temperature 99.1 F 98.5 F Pulse Rate 60 54 L Respiratory 20 20 20 Rate Blood Pressure 145/81 139/82 O2 Sat by Pulse 99 99 99 Oximetry (%) 05/07/20 05/07/20 14:00 18:00 Temperature 98.9 F 99.1 F Pulse Rate 70 64 Respiratory 20 Rate Blood Pressure 129/68 108/58 L O2 Sat by Pulse 98 Oximetry (%) Current Medications Generic Name Dose Route Start Last Admin Trade Name Freq PRN Reason Stop Dose Admin Enoxaparin Sodium 40 mg 05/03/20 10:00 05/07/20 09:56 Lovenox - SQ 40 mg DAILY QI Administration Piperacillin Sod/Tazobactam 100 mls @ 200 mls/hr 05/03/20 02:00 05/07/20 18:03 Sod 4.5 gm/ Dextrose IVPB 200 mls/hr Q8H-IV QI Administration Protocol Methadone HCl 10 mg 05/03/20 10:00 05/07/20 09:55 Dolophine - PO 10 mg BID QI Administration Pantoprazole Sodium 40 mg 05/03/20 10:00 05/07/20 09:56 Protonix Iv IVPUSH 40 mg DAILY QI Administration Laboratory Results - last 24 hr 05/06/20 05/07/20 05/07/20 22:59 06:37 06:37 WBC 8.2 RBC 4.57 Hgb 12.0 Hct 36.2 MCV 79.2 L MCH 26.3 MCHC 33.1 RDW 14.1 Plt Count 271 MPV 8.6 Sodium 141 Potassium 3.3 L Chloride 101 Carbon Dioxide 35 H Anion Gap 6 L BUN 9.8 Creatinine 0.4 L Est GFR (CKD-EPI)AfAm 167.42 Est GFR (CKD-EPI)NonAf 144.46 POC Glucometer 91 Random Glucose 83 Calcium 8.0 L Total Bilirubin 0.6 AST 18 ALT 43 Alkaline Phosphatase 55 Total Protein 5.7 L Albumin 2.3 L S1 S2 RRR Lungs decreased Abd- soft, Obese No edema PLAN IV antibiotics labs noted DVT prophyalxis-- Lovenox sc change to protonix po on soft diet OOB daily replace potassium Problem List - Problems (1) Anastomotic leak of stomach Code(s): K91.89 - OTH POSTPROCEDURAL COMPLICATIONS AND DISORDERS OF DGSTV SYS (2) Abdominal pain Code(s): R10.9 - UNSPECIFIED ABDOMINAL PAIN (3) Morbid obesity Code(s): E66.01 - MORBID (SEVERE) OBESITY DUE TO EXCESS CALORIES (4) COVID-19 virus detected Code(s): U07.1 - COVID POSITIVE (5) Pneumonia Code(s): J18.9 - PNEUMONIA, UNSPECIFIED ORGANISM
[2020-05-08] MEDS ORDERED: PIPERACILLIN/TAZOBACTAM 4.5 GM VIAL IVPB ONE ×3 (02:12→16:48)
[2020-05-08] MEDS ORDERED: DEXTROSE 5%-WATER 100 ML IVPB ONE ×3 (02:13→16:48)
[2020-05-08] MEDS: PIPERACILLIN/TAZOB 4.5 GM 4.5 GM in DEXTROSE 5%-WATER 100 ML IVPB SCH ×3 (02:15→17:02)
[2020-05-08 08:28] LABS: POTASSIUM 3.6 mmol/L (3.5-5.1)
[2020-05-08 08:51] LABS: BLOOD UREA NITROGEN 10.4 mg/dL (7-18); CALCIUM 8.1 mg/dL (8.5-10.1); CREATININE 0.4 mg/dL (0.55-1.3)
[2020-05-08] MEDS: METHADONE HCL 10 MG TABLET PO SCH ×2 (10:21→21:48)
[2020-05-08] MEDS: ENOXAPARIN NA (PORCINE) 40 MG/0.4 ML DISP.SYRIN SQ SCH (10:22)
[2020-05-08] MEDS: PANTOPRAZOLE SODIUM 40 MG VIAL IVPUSH SCH (10:22)
--- NOTE | 2020-05-08 10:22 | PN ---
Progress Note, Physician History of Present Illness: PULMONARY ALERT,COMFORTABLE -SOB ON NASAL CANNULA 4L,O2 SAT 99% - Current Medication List Current Medications: Active Medications Enoxaparin Sodium (Lovenox -) 40 mg SQ DAILY [facility] Last Admin: 05/07/20 09:56 Dose: 40 mg Documented by: Piperacillin Sod/Tazobactam (Sod 4.5 gm/ Dextrose) 100 mls @ 200 mls/hr IVPB Q8H-IV QI; Protocol Last Admin: 05/08/20 02:15 Dose: 200 mls/hr Documented by: Methadone HCl (Dolophine -) 10 mg PO BID [facility] Last Admin: 05/07/20 20:59 Dose: 10 mg Documented by: Pantoprazole Sodium (Protonix Iv) 40 mg IVPUSH DAILY [facility] Last Admin: 05/07/20 09:56 Dose: 40 mg Documented by: - Objective Vital Signs: Vital Signs Temperature 97.5 F L 05/08/20 06:53 Pulse Rate 61 05/08/20 02:00 Respiratory Rate 18 05/08/20 06:53 Blood Pressure 134/58 L 05/08/20 06:53 O2 Sat by Pulse Oximetry (%) 100 05/08/20 06:53 Constitutional: Yes: Well Nourished, Calm Eyes: Yes: WNL HENT: Yes: WNL Neck: Yes: WNL Cardiovascular: Yes: Regular Rate and Rhythm, S1, S2 Respiratory: Yes: CTA Bilaterally Gastrointestinal: Yes: Normal Bowel Sounds, Soft, Tenderness Extremities: Yes: WNL Edema: No Labs: CBC, BMP 05/07/20 06:37 05/08/20 06:00 INR, PTT INR 1.32 (0.83-1.09) H 05/01/20 05:30 Problem List - Problems (1) Sepsis Code(s): A41.9 - SEPSIS, UNSPECIFIED ORGANISM (2) Abdominal pain Code(s): R10.9 - UNSPECIFIED ABDOMINAL PAIN (3) Anastomotic leak of stomach Code(s): K91.89 - OTH POSTPROCEDURAL COMPLICATIONS AND DISORDERS OF DGSTV SYS (4) COVID-19 virus detected Code(s): U07.1 - COVID POSITIVE (5) Intra-abdominal abscess Code(s): K65.1 - PERITONEAL ABSCESS Assessment/Plan ASSESSMENT/PLAN: Sepsis due to Intra-abdominal abscess POD #6: Laparoscopic closure of perforated Gastro-jejunal anastomotic ulcer. D rainage of abdominal abscess. Laparoscopic Lysis of adhesions due to a large abscess in lesser sac posterior to stomach. COVID 19 (+) PNEUMONIA ABX per ID Strict I & O nasal o2 VTE prophylaxis Trend inflammatory markers DR PARKER
--- NOTE | 2020-05-08 10:42 | PN ---
Progress Note (short form) - Note Progress Note: SURGERY s/p Laparoscopic lysis of adhesions, drainage of abdominal abscess, closure of perforated gastro-jejunal anastomotic ulcer. COVID + Patient seen and examined on AM rounds with no new complaints. Pt tolerating soft well, pt wants regular food. Pt states SOB improved, that appears to be COVID related, currently on NRB. He is voiding and moved his bowels yesterday. He denies any CP, N/V, fever or chills. Vital Signs Temp 97.5 F L 05/08/20 06:53 Pulse 61 05/08/20 02:00 Resp 18 05/08/20 06:53 BP 134/58 L 05/08/20 06:53 Pulse Ox 100 05/08/20 06:53 Intake & Output 05/07/20 05/07/20 05/08/20 11:59 23:59 11:59 Intake Total 780 100 Output Total 720 400 Balance -720 780 -300 Weight 265 lb 3.2 oz Intake: IV 100 RFA 100 IVPB 200 100 Oral 480 Output: Drainage 20 Right Abdomen 20 Urine 700 400 Void 700 400 Other: Voiding Method Urinal Urinal # Unmeasured Voids Void 2 2 Bowel Movement Yes: loose Yes # Bowel Movements 1 CBC, BMP 05/07/20 06:37 05/08/20 06:00 PE: A&Ox3, NAD Unlabored resp on 50% NRB, patient tolerated. Afebrile; VSS ABD: Obese, soft, ND/ NT, port sites c/d/i with dermabond and surrounding tissue intact with no tracking erythema, edema or d/c Drain at RLQ well secure with scant ss d/c. stripped and working well B/L LE compartments soft, NT, ND with scds in place, Problem List - Problems (1) Anastomotic leak of stomach Assessment/Plan: POD #6 patient doing well with no complaints and moving his bowels. NGT removed on rounds. -Drain removed at bedside without issue. -Continue soft diet will adv to regular diet tomorrow -trend daily labs -monitor and record drain output Pt discussed with Dr. Gonzalez who agrees with plan
--- NOTE | 2020-05-08 12:07 | PN ---
Progress Note (short form) - Note Progress Note: POD #7 Laparoscopic lysis of adhesions, drainage of abdominal abscess, closure of perforated gastro-jejunal anastomotic ulcer. COVID + changed to soft diet by surgeon pt is off NRB though he did use it last night now on NC- 4 liters-- 96-97% no complaints Vital Signs - 24 hr 05/07/20 05/07/20 05/07/20 14:00 18:00 21:00 Temperature 98.9 F 99.1 F Pulse Rate 70 64 Respiratory 20 Rate Blood Pressure 129/68 108/58 L O2 Sat by Pulse 98 96 Oximetry (%) 05/07/20 05/08/20 05/08/20 22:00 02:00 06:53 Temperature 98.1 F 97.5 F L Pulse Rate 61 Respiratory 20 18 Rate Blood Pressure 135/56 L 134/58 L O2 Sat by Pulse 96 100 Oximetry (%) Current Medications Generic Name Dose Route Start Last Admin Trade Name Freq PRN Reason Stop Dose Admin Enoxaparin Sodium 40 mg 05/03/20 10:00 05/08/20 10:22 Lovenox - SQ 40 mg DAILY QI Administration Piperacillin Sod/Tazobactam 100 mls @ 200 mls/hr 05/03/20 02:00 05/08/20 10:21 Sod 4.5 gm/ Dextrose IVPB 200 mls/hr Q8H-IV QI Administration Protocol Methadone HCl 10 mg 05/03/20 10:00 05/08/20 10:21 Dolophine - PO 10 mg BID QI Administration Pantoprazole Sodium 40 mg 05/03/20 10:00 05/08/20 10:22 Protonix Iv IVPUSH 40 mg DAILY QI Administration Laboratory Results - last 24 hr 05/07/20 05/08/20 05/08/20 21:02 06:00 06:00 D-Dimer 5789 H Sodium 139 Potassium 3.6 Chloride 100 Carbon Dioxide 33 H Anion Gap 5 L BUN 10.4 Creatinine 0.4 L Est GFR (CKD-EPI)AfAm 167.42 Est GFR (CKD-EPI)NonAf 144.46 POC Glucometer 135 Random Glucose 79 Calcium 8.1 L Ferritin 119.4 C-Reactive Protein 7.2 H l S1 S2 RRR Lungs decreased Abd- soft, Obese No edema PLAN IV antibiotics repeat COVID PCR D-dimer elevated-- will need to start Eliquis tolerated po diet off NG tube OOB daily check pre and post O2 sat while ambulating Problem List - Problems (1) Anastomotic leak of stomach Code(s): K91.89 - OTH POSTPROCEDURAL COMPLICATIONS AND DISORDERS OF DGSTV SYS (2) Abdominal pain Code(s): R10.9 - UNSPECIFIED ABDOMINAL PAIN (3) Morbid obesity Code(s): E66.01 - MORBID (SEVERE) OBESITY DUE TO EXCESS CALORIES (4) COVID-19 virus detected Code(s): U07.1 - COVID POSITIVE (5) Pneumonia Code(s): J18.9 - PNEUMONIA, UNSPECIFIED ORGANISM
[2020-05-08] MEDS ORDERED: SIMETHICONE 80 MG TAB.CHEW (FP) PO PRN (21:31)
[2020-05-09] MEDS ORDERED: PIPERACILLIN/TAZOBACTAM 4.5 GM VIAL IVPB ONE ×2 (01:01→09:13)
[2020-05-09] MEDS ORDERED: DEXTROSE 5%-WATER 100 ML IVPB ONE ×2 (01:01→09:13)
[2020-05-09] MEDS: PIPERACILLIN/TAZOB 4.5 GM 4.5 GM in DEXTROSE 5%-WATER 100 ML IVPB SCH ×2 (01:32→09:53)
[2020-05-09 05:54] VITALS: BP 144/71; TEMP 98
[2020-05-09 09:03] VITALS: PULSE 74
[2020-05-09] MEDS: METHADONE HCL 10 MG TABLET PO SCH (09:53)
[2020-05-09] MEDS: PANTOPRAZOLE SODIUM 40 MG VIAL IVPUSH SCH (09:54)
[2020-05-09] MEDS: ENOXAPARIN NA (PORCINE) 40 MG/0.4 ML DISP.SYRIN SQ SCH (09:54)
--- NOTE | 2020-05-09 11:36 | DS ---
Physical Examination Vital Signs: Vital Signs Temperature 98 F 05/09/20 09:00 Pulse Rate 74 05/09/20 09:00 Respiratory Rate 20 05/09/20 09:00 Blood Pressure 144/71 05/09/20 09:00 O2 Sat by Pulse Oximetry (%) 100 05/09/20 09:00 Findings/Remarks: pt seen/ examined chart is reviewed Awake/ comfortable no complains denies pain tolerating diet denies pain afebrile Repeat covid -ve saturating well without oxygen Constitutional: Yes: No Distress, Calm Neck: Yes: Supple. No: Tenderness Cardiovascular: Yes: Regular Rate and Rhythm Respiratory: Yes: CTA Bilaterally Gastrointestinal: Yes: Soft Edema: No Neurological: Yes: Alert Psychiatric: Yes: Alert Labs: CBC, BMP 05/07/20 06:37 05/08/20 06:00 Discharge Summary Problems reviewed: Yes Reason For Visit: ANASTOMOTIC LEAK OF STOMACH Current Active Problems Abdominal pain (Acute) Anastomotic leak of stomach (Acute) COVID-19 virus detected (Acute) Intra-abdominal abscess (Acute) Pneumonia (Acute) Sepsis (Acute) Hospital Course: The patient is a 43y/o M with a PMH of HTN, chronic back pain, gastric bypass (2004; Dr. Gonzalez), multiple hernia repairs, peptic ulcer, on methadone who presents to the ED with generalized squeezing abdominal pain. found to have Gastric Anastomotic leak. Underwent surgery admitted to icu Was covid + ve also Treated with abx did well now stable repeat covid -ve D dimer + discussed with i/d, Dr. Gonzalez and manager case management No further abx needed d/c on Eliquis -- dr. 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
== END 2020-05-09 13:47 | disposition home or self-care (01) | DRG 220 ==
LOC: JER 07:39 → JERBED 18:40 → JICU 22:44 → J4W 05-03 00:25
PROVIDERS: ADMIT Internal Medicine Pulmonary Disease; ATTEND Internal Medicine
PROC: 0W9G30Z Drainage of Peritoneal Cavity with Drainage Device, Percutaneous Approach (ICD-10-PCS; 2020-05-01)
PROC: 0DN63ZZ Release Stomach, Percutaneous Approach (ICD-10-PCS; 2020-05-01)
PROC: 0DN83ZZ Release Small Intestine, Percutaneous Approach (ICD-10-PCS; 2020-05-01)
PROC: 0DQ Gastrointestinal System, Repair (ICD-10-PCS; principal; 2020-05-01 12:00)
DX: K95.09 Other complications of gastric band procedure (principal); R10.9 Unspecified abdominal pain; K91.89 Other postprocedural complications and disorders of digestive system; Z68.36 Body mass index [BMI] 36.0-36.9, adult; I10 Essential (primary) hypertension; G89.29 Other chronic pain; M54.9 Dorsalgia, unspecified; F11.20 Opioid dependence, uncomplicated; E66.01 Morbid (severe) obesity due to excess calories; T39.315A Adverse effect of propionic acid derivatives, initial encounter; K28.1 Acute gastrojejunal ulcer with perforation; U07.1 COVID-19; A41.9 Sepsis, unspecified organism; K65.1 Peritoneal abscess; Y84.8 Other medical procedures as the cause of abnormal reaction of the patient, or of later complication, without mention of misadventure at the time of the procedure; J98.11 Atelectasis; J12.89 Other viral pneumonia
CPT/HCPCS: 36415; 71046-TC-FY; 71250-TC; 74176-TC; 74177-TC; 80048; 80053; 81003; 82728; 82962; 83690; 83735; 84100; 84484; 85025; 85027; 85379; 85610; 85730; 86140; 86850; 86900; 86901; 87086; 93005; 93010; 94760; 94761; 97116-GP; 97161-GP; 99285-25; J0131; Q9967; Q9968; U0003